=== PATIENT | female | born 1960 | race African-American/Black ===

== ENCOUNTER 2017-05-24 15:09 | Emergency (ER) | payer MEDICAID ==
[2017-05-24 15:17] VITALS: BP 142/92; BMI 46.7
--- NOTE | 2017-05-24 16:17 | DR.GENAD ---
HPI - PCP Primary Care Physician: FLORENCIO - Complaint/Symptoms Chief Complaint:: PT STATES" I GOT BIT BY A BEE ON MONDAY ON MY LT KNEE I MASHED IT BUT ITS REAL SORE. I GOT BLISTERS ON MY LEG TOO THEY JUST CAME UP I DIDNT GET BURNED OR NOTHING" - Source History Provided: Patient - Mode of Arrival Mode of Arrival: Ambulatory - Timing Onset of Chief Complaint: 05/20/17 PMH - PMH Past Medical History: Yes Past Medical History: Asthma, Migraines Past Surgical History: Yes Surgical History: Appendectomy, Hysterectomy, Other - Family History History of Family Medical Conditions: Yes Family Medical History: Diabetes Mellitus, Cancer, Hypertension - Social History Type of Tobacco Use: Cigarettes Does any household member use tobacco: Yes Alcohol Use: Occasionally Do you use any recreational Drugs:: No Lives With: Family Lives Where: Home - infectious screening In the last 2 months have you had wt loss of >10#?: NO Have you had fever, night sweats or hemotysis?: No Have you traveled outside the country in the last 6 months?: No Isolation: Standard ROS - Review of Systems Eyes: No Symptoms Reported ENTM: No Symptoms Reported Respiratoy: No Symptoms Reported Cardiovascular: No Symptoms Reported Gastrointestinal/Abdominal: No Symptoms Reported Genitourinary: No Symptoms Reported Neurological: No Symptoms Reported Musculoskeletal: No Symptoms Reported Integumentary: Rash (insect bite left medial leg below the knee) Hematologic/Lymphatic: No Symptoms Reported Endocrine: No Symptoms Reported Psychiatric: No Symptoms Reported All Other Systems: Reviewed and Negative PE - Vital Signs Vitals: Temperature 97.9 F Pulse Rate 83 Respiratory Rate 18 Blood Pressure 142/92 O2 Sat by Pulse Oximetry 97 - General General Appearance: Alert, In No Apparent Distress - Head Head Exam: Normal Inspection, Atraumatic - ENT ENT Exam: Normal Exam, Normal Oropharynx, Normal External Ear Exam External Ear Exam: Normal External Inspection TM/Canal Exam: Bilateral Normal Nose Exam: Normal Nose Exam Mouth Exam: Normal Inspection Throat Exam: Normal Inspection - Neck Neck Exam: Normal Inspection - Chest Chest Inspection: Normal Inspection - Respiratory Respiratory Exam: Normal Lung Sounds Bilat Respiratory Exam: Bilateral Clear to Auscultation - Cardiovascular Cardiovascular Exam: Regular Rate, Normal Rhythm - Abdominal Exam Abdominal Exam: Normal Inspection Abdominal Tenderness: negative: RUQ, RLQ, LUQ, LLQ, Epigastrium, Suprapubic, Diffuse, Mild, Moderate, Severe, Other - Extremities Extremities Exam: Other (insect bite medial left lower extremity below the knee- -erythematous punctum) - Back Back Exam: Full ROM - Neurologic Neurological Exam: Alert, Oriented X3, CN II-XII Intact - Psychiatric Psychiatric Exam: Normal Affect - Skin Skin Exam: Warm, Dry, Intact - Diagnosis Discharge Problem: Insect bite Qualifiers: Encounter type: initial encounter Qualified Code(s): W57.XXXA - Bitten or stung by nonvenomous insect and other nonvenomous arthropods, initial encounter - Discharge Plan Condition: Stable - Follow ups/Referrals Follow ups/Referrals: Lelo MATIAS [Primary Care Provider] - 3 days - Instructions
== END 2017-05-24 16:24 | disposition home or self-care (01) ==
LOC: ER 15:20
DX: S80.861A Insect bite (nonvenomous), right lower leg, initial encounter (principal); W57.XXXA Bitten or stung by nonvenomous insect and other nonvenomous arthropods, initial encounter
CPT/HCPCS: 99281; 99282

== ENCOUNTER 2017-09-04 14:23 | Emergency (ER) | payer MEDICAID ==
[2017-09-04 14:28] VITALS: BP 147/85; BMI 47.6
[2017-09-04] MEDS ORDERED: SOLU-Medrol 125 MG VIAL IVP ONE (14:40)
[2017-09-04] MEDS ORDERED: DUONEB 0.5 MG/3 MG NEB ONE (14:40)
[2017-09-04] MEDS ORDERED: NS 1000 ML 1,000 ML IV ONE (14:40)
[2017-09-04] MEDS ORDERED: DECADRON JET NEB (RESP USE) NEB ONE ×2 (14:40→15:06)
--- NOTE | 2017-09-04 14:43 | DR.GENAD ---
HPI - PCP Primary Care Physician: FLORENCIO - Complaint/Symptoms Chief Complaint:: GENERALIZED BODY ACHES, CHILLS, HEADACHE, DRY COUGH, WHEEZING , SHORTNESS OF BREATH, N/V X 3 WEEKS. - Source History Provided: Patient - Mode of Arrival Mode of Arrival: Ambulatory - Timing Onset of Chief Complaint: 08/14/17 PMH - PMH Past Medical History: Yes Past Medical History: Asthma, Migraines Past Surgical History: Yes Surgical History: Appendectomy, Hysterectomy, Other - Family History History of Family Medical Conditions: Yes Family Medical History: Diabetes Mellitus, Cancer, Hypertension - Social History Does patient currently use any type of tobacco product: Yes Have you used tobacco products in the last 12 months: Yes Type of Tobacco Use: Cigarettes Does any household member use tobacco: No Alcohol Use: Occasionally Do you use any recreational Drugs:: No Lives With: Alone Lives Where: Home - infectious screening In the last 2 months have you had wt loss of >10#?: NO Have you had fever, night sweats or hemotysis?: No Have you traveled outside the country in the last 6 months?: No Isolation: Standard ROS - Review of Systems Eyes: No Symptoms Reported ENTM: No Symptoms Reported Respiratoy: No Symptoms Reported Cardiovascular: No Symptoms Reported Gastrointestinal/Abdominal: No Symptoms Reported Genitourinary: No Symptoms Reported Neurological: No Symptoms Reported Musculoskeletal: No Symptoms Reported Integumentary: No Symptoms Reported Hematologic/Lymphatic: No Symptoms Reported Endocrine: No Symptoms Reported Psychiatric: No Symptoms Reported All Other Systems: Reviewed and Negative PE - Vital Signs Vitals: Temperature 98.0 F Pulse Rate 80 Respiratory Rate 26 Blood Pressure 147/85 O2 Sat by Pulse Oximetry 97 - General Limitations: No Limitations General Appearance: Alert, Anxious - Head Head Exam: Normal Inspection, Atraumatic - Eyes Eye exam: Normal Appearance, PERRL, EOMI - ENT ENT Exam: Normal Exam External Ear Exam: Normal External Inspection TM/Canal Exam: Bilateral Normal Nose Exam: Normal Nose Exam Mouth Exam: Normal Inspection Throat Exam: Normal Inspection - Neck Neck Exam: Normal Inspection - Chest Chest Inspection: Normal Inspection, Symmetric Chest Wall Rise - Respiratory Respiratory Exam: Normal Lung Sounds Bilat Respiratory Exam: Bilateral Wheezing (inspiratory/expiratory) - Cardiovascular Cardiovascular Exam: Regular Rate, Normal Rhythm - Abdominal Exam Abdominal Exam: Normal Inspection, Normal Bowel Sounds Abdominal Tenderness: negative: RUQ, RLQ, LUQ, LLQ, Epigastrium, Suprapubic, Diffuse, Mild, Moderate, Severe, Other - Extremities Extremities Exam: Normal Inspection, Full ROM - Back Back Exam: Normal Inspection, Full ROM - Neurologic Neurological Exam: Alert, Oriented X3, CN II-XII Intact - Psychiatric Psychiatric Exam: Normal Affect - Skin Skin Exam: Warm, Dry, Intact Course - Reevaluation 1st: Improved - Education/Counseling Education/Counseling: Counseling Educated On: Treatment, Diagnosis, Needs for Follow Up ROR - Labs Reviewed Laboratory Results Reviewed?: Yes (strep and influenza are negative) Laboratory: Influenza Type A (PCR) Negative (NEGATIVE) 09/04/17 14:58 Influenza Type B (PCR) Negative (NEGATIVE) 09/04/17 14:58 Streptococcus Screen Negative (NEGATIVE) 09/04/17 14:58 - XRAY XRAY Interpreted by: Radiologist (Chest:Impression: AP portable examination of chest is obtained at approximately 3:10pm and comparison made to the previous study of 10/23/15. Mild cardiomegaly persists. Lungs and pleural spaces are clear. Osseous structures appear intact. Impression: No change in the appearance of the chest and no evidence of acute disease.) - Diagnosis Discharge Problem: Asthmatic bronchitis , chronic Upper respiratory infection Qualifiers: URI type: unspecified viral URI Qualified Code(s): J06.9 - Acute upper respiratory infection, unspecified; B97.89 - Other viral agents as the cause of diseases classified elsewhere; B97.89 - Other viral agents as the cause of diseases classified elsewhere - Discharge Plan Condition: Stable - Follow ups/Referrals Follow ups/Referrals: Lelo MATIAS [Primary Care Provider] - 3 days - Instructions
[2017-09-04] MEDS ORDERED: NS 1000 ML 1,000 ML ONE (14:47)
[2017-09-04] MEDS ORDERED: SOLU-Medrol 125 MG VIAL ONE (14:47)
[2017-09-04] MEDS ORDERED: DUONEB 0.5 MG/3 MG ONE (15:06)
--- NOTE | 2017-09-04 15:16 | RAD ---
History: Cough Study: Chest AP portable Findings: AP portable examination of chest is obtained at approximately 3:10 p.m. and comparison made to the previous study of 10/23/2015. Mild cardiomegaly persists. Lungs and pleural spaces are clear. Osseous structures appear intact. Impression: No change in the appearance of the chest and no evidence of acute disease. Reported By:
== END 2017-09-04 16:14 | disposition home or self-care (01) ==
LOC: ER 14:32
DX: J44.9 Chronic obstructive pulmonary disease, unspecified (principal); J06.9 Acute upper respiratory infection, unspecified; B97.89 Other viral agents as the cause of diseases classified elsewhere; Z72.0 Tobacco use
CPT/HCPCS: 71010; 87070; 87502; 87880; 94640; 96365; 96374; 99282; 99283; A4222; J2930; J7620

== ENCOUNTER 2017-09-22 09:55 | Emergency (ER) | payer MEDICAID ==
[2017-09-22 09:55] VITALS: BP 147/85
[2017-09-22 10:00] VITALS: BMI 43.0
--- NOTE | 2017-09-22 10:24 | DR.GENAD ---
HPI - PCP Primary Care Physician: FLORENCIO - Complaint/Symptoms Chief Complaint Doctors Comments: Patient admtis to sore on her left lower leg for one month. She is being treated with ointment. She states that she was referred to the wound clinic but has not gotten the appointment yet. She is out of her medication for the leg. Chief Complaint:: "MY RIGHT LOWER LEG HAS BEEN RUNNING PUS AND RED FOR ABOUT 1 MONTH" Self Treatment fo Chief Complaint: PAIN MEDS - Source History Provided: Patient - Mode of Arrival Mode of Arrival: Ambulatory - Timing Onset of Chief Complaint: 08/13/17 PMH - PMH Past Medical History: Yes Past Medical History: Asthma, Migraines Past Surgical History: Yes Surgical History: Appendectomy, Hysterectomy, Other - Family History History of Family Medical Conditions: Yes Family Medical History: Diabetes Mellitus, Cancer, Hypertension - Social History Does patient currently use any type of tobacco product: No Have you used tobacco products in the last 12 months: No Type of Tobacco Use: None Does any household member use tobacco: No Alcohol Use: None Do you use any recreational Drugs:: No Lives With: Family Lives Where: Home - infectious screening In the last 2 months have you had wt loss of >10#?: NO Have you had fever, night sweats or hemotysis?: No Have you traveled outside the country in the last 6 months?: No Isolation: Standard ROS - Review of Systems Constitutional: No Symptoms Reported Eyes: No Symptoms Reported ENTM: No Symptoms Reported Respiratoy: No Symptoms Reported Cardiovascular: No Symptoms Reported Gastrointestinal/Abdominal: No Symptoms Reported Genitourinary: No Symptoms Reported Neurological: No Symptoms Reported Musculoskeletal: No Symptoms Reported Integumentary: Wound (anterio lateral right lower extremity) Hematologic/Lymphatic: No Symptoms Reported Endocrine: No Symptoms Reported Psychiatric: No Symptoms Reported All Other Systems: Reviewed and Negative PE - Vital Signs Vitals: Temperature 98.0 F Pulse Rate [Left Radial] 80 Respiratory Rate 20 Blood Pressure [Left Arm] 147/85 Blood Pressure 147/85 O2 Sat by Pulse Oximetry 98 - General Limitations: No Limitations General Appearance: Alert, In No Apparent Distress - Head Head Exam: Normal Inspection, Atraumatic - Eyes Eye exam: Normal Appearance, PERRL, EOMI - ENT ENT Exam: Normal Exam External Ear Exam: Normal External Inspection TM/Canal Exam: Bilateral Normal Nose Exam: Normal Nose Exam Mouth Exam: Normal Inspection Throat Exam: Normal Inspection - Neck Neck Exam: Normal Inspection - Chest Chest Inspection: Normal Inspection - Respiratory Respiratory Exam: Normal Lung Sounds Bilat Respiratory Exam: Bilateral Clear to Auscultation - Cardiovascular Cardiovascular Exam: Regular Rate, Normal Rhythm - Abdominal Exam Abdominal Exam: Normal Inspection Abdominal Tenderness: negative: RUQ, RLQ, LUQ, LLQ, Epigastrium, Suprapubic, Diffuse, Mild, Moderate, Severe, Other - Extremities Extremities Exam: Other (A 2cm stasis ulcer right anteriolateral right lower extremity, non erythematous) - Back Back Exam: Normal Inspection - Neurologic Neurological Exam: Alert, Oriented X3, CN II-XII Intact - Psychiatric Psychiatric Exam: Normal Affect, Normal Mood - Skin Skin Exam: Warm, Dry, Intact - Diagnosis Discharge Problem: Stasis ulcer Qualifiers: Venous stasis ulcer site: other part of lower leg Varicose vein presence: without varicose veins Laterality: right Non-pressure ulcer stage: unspecified non-pressure ulcer stage Qualified Code(s): I87.2 - Venous insufficiency ( chronic) (peripheral); L97.819 - Non-pressure chronic ulcer of other part of right lower leg with unspecified severity; L97.819 - Non-pressure chronic ulcer of other part of right lower leg with unspecified severity; L97.819 - Non- pressure chronic ulcer of other part of right lower leg with unspecified severity; L97.819 - Non-pressure chronic ulcer of other part of right lower leg with unspecified severity - Discharge Plan Condition: Stable - Follow ups/Referrals Follow ups/Referrals: Lelo MATIAS [Primary Care Provider] - 3 days - Instructions
[2017-09-22] MEDS ORDERED: BACTROBAN OINT TOP ONE (10:35)
[2017-09-22] MEDS ORDERED: NEOSPORIN OINT ONE (10:37)
== END 2017-09-22 10:44 | disposition home or self-care (01) ==
LOC: ER 10:07
DX: I87.2 Venous insufficiency (chronic) (peripheral) (principal); L97.819 Non-pressure chronic ulcer of other part of right lower leg with unspecified severity
CPT/HCPCS: 99282

== ENCOUNTER 2017-10-15 21:39 | Emergency (ER) | payer MEDICAID ==
[2017-10-15 21:48] VITALS: BP 122/61; BMI 49.4
[2017-10-15] MEDS ORDERED: TORADOL 60 MG VIAL IM ONE (21:54)
--- NOTE | 2017-10-15 21:54 | DR.GENAD ---
HPI - PCP Primary Care Physician: chinyere - Complaint/Symptoms Chief Complaint Doctors Comments: Patient fell today stating that she injured chest wall. Chief Complaint:: pt states" i fell face first i'm hurting in my lt upper side under my breast it hurts when i cough" - Source History Provided: Patient - Mode of Arrival Mode of Arrival: Ambulatory - Timing Onset of Chief Complaint: 10/15/17 PMH - PMH Past Medical History: Yes Past Medical History: Asthma, Migraines Past Surgical History: Yes Surgical History: Appendectomy, Hysterectomy, Other - Family History History of Family Medical Conditions: Yes Family Medical History: Diabetes Mellitus, Cancer, Hypertension - Social History Do you use any recreational Drugs:: No - infectious screening In the last 2 months have you had wt loss of >10#?: NO Have you had fever, night sweats or hemotysis?: No Have you traveled outside the country in the last 6 months?: No Isolation: Standard ROS - Review of Systems Eyes: No Symptoms Reported ENTM: No Symptoms Reported Respiratoy: No Symptoms Reported Cardiovascular: No Symptoms Reported Gastrointestinal/Abdominal: No Symptoms Reported Genitourinary: No Symptoms Reported Neurological: No Symptoms Reported Musculoskeletal: No Symptoms Reported Integumentary: No Symptoms Reported Hematologic/Lymphatic: No Symptoms Reported Endocrine: No Symptoms Reported Psychiatric: No Symptoms Reported All Other Systems: Reviewed and Negative PE - Vital Signs Vitals: Temperature 98.2 F Pulse Rate 82 Respiratory Rate 18 Blood Pressure [Left Arm] 147/85 Blood Pressure 122/61 O2 Sat by Pulse Oximetry 99 - General Limitations: No Limitations General Appearance: Alert, In No Apparent Distress - Head Head Exam: Normal Inspection, Atraumatic - Eyes Eye exam: Normal Appearance, PERRL, EOMI - ENT ENT Exam: Normal Exam External Ear Exam: Normal External Inspection TM/Canal Exam: Bilateral Normal Nose Exam: Normal Nose Exam, Sinus Tenderness Mouth Exam: Normal Inspection Throat Exam: Normal Inspection - Neck Neck Exam: Normal Inspection, Full ROM - Chest Chest Inspection: Normal Inspection, Tenderness (chest wall tenderness) - Respiratory Respiratory Exam: Normal Lung Sounds Bilat Respiratory Exam: Bilateral Clear to Auscultation - Cardiovascular Cardiovascular Exam: Regular Rate, Normal Rhythm - Abdominal Exam Abdominal Exam: Normal Inspection, Normal Bowel Sounds Abdominal Tenderness: negative: RUQ, RLQ, LUQ, LLQ, Epigastrium, Suprapubic, Diffuse, Mild, Moderate, Severe, Other - Extremities Extremities Exam: Normal Inspection, Full ROM - Back Back Exam: Normal Inspection - Neurologic Neurological Exam: Alert, Oriented X3, CN II-XII Intact ROR - XRAY XRAY Interpreted by: Radiologist (Chest: The cardiac silhouette is enlarged but unchanged. No obvious focal consolidation, pleural effusion, or pneumothorax. The osseous structures appear intact. Impression: No acute cardiopulmonary or osseous process.) - Diagnosis Discharge Problem: Chest wall contusion Qualifiers: Encounter type: initial encounter Laterality: unspecified laterality Qualified Code(s): S20.219A - Contusion of unspecified front wall of thorax, initial encounter - Discharge Plan Condition: Stable - Follow ups/Referrals Follow ups/Referrals: Lelo MATIAS [Primary Care Provider] - 3 days - Instructions
[2017-10-15] MEDS ORDERED: TORADOL 60 MG VIAL ONE (22:05)
--- NOTE | 2017-10-15 23:20 | RAD ---
HISTORY: Left rib pain status post fall. Study: 7 views of the bilateral ribs. Comparison: Chest x-ray dated September 04, 2017. Findings: The cardiac silhouette is enlarged but unchanged. No obvious focal consolidation, pleural effusion, o r pneumothorax. The osseous structures appear intact. IMPRESSION: No acute cardiopulmonary or osseous process. Reported By:
== END 2017-10-16 00:05 | disposition home or self-care (01) ==
LOC: ER 21:39
DX: S20.219A Contusion of unspecified front wall of thorax, initial encounter (principal); W19.XXXA Unspecified fall, initial encounter; Y92.9 Unspecified place or not applicable
CPT/HCPCS: 71111; 96372; 99282; 99283; J1885

== ENCOUNTER 2017-12-26 12:49 | Emergency (ER) | payer MEDICAID ==
[2017-12-26 12:53] VITALS: BP 152/90; BMI 48.6
[2017-12-26] MEDS ORDERED: TORADOL 60 MG VIAL IM ONE (13:50)
--- NOTE | 2017-12-26 13:50 | DR.GENAD ---
HPI - PCP Primary Care Physician: FLORENCIO - Complaint/Symptoms Chief Complaint Doctors Comments: Patient presents with complaint of knee pain, left ear pain. She has been seen by her primary care physician and has been treated for otitis externa. She has a history of chronic pain. Chief Complaint:: PT. C/O CHRONIC LEFT LEG AND KNEE PAIN WELL A HEADACHE AND LEFT EARACHE. - Source History Provided: Patient - Mode of Arrival Mode of Arrival: Ambulatory - Timing Onset of Chief Complaint: 12/21/17 PMH - PMH Past Medical History: Yes Past Medical History: Asthma, Migraines, Hypertension Past Surgical History: Yes Surgical History: Appendectomy, Hysterectomy, Other - Family History History of Family Medical Conditions: Yes Family Medical History: Diabetes Mellitus, Cancer, Hypertension - Social History Does patient currently use any type of tobacco product: Yes Have you used tobacco products in the last 12 months: Yes Type of Tobacco Use: Cigarettes Does any household member use tobacco: No Alcohol Use: Rarely Do you use any recreational Drugs:: No Lives With: Alone Lives Where: Home - infectious screening In the last 2 months have you had wt loss of >10#?: NO Have you had fever, night sweats or hemotysis?: No Have you traveled outside the country in the last 6 months?: No Isolation: Standard ROS - Review of Systems Constitutional: Diaphoresis Respiratoy: No Symptoms Reported Cardiovascular: No Symptoms Reported Gastrointestinal/Abdominal: No Symptoms Reported Genitourinary: No Symptoms Reported Neurological: No Symptoms Reported Musculoskeletal: No Symptoms Reported Integumentary: No Symptoms Reported Hematologic/Lymphatic: No Symptoms Reported Endocrine: No Symptoms Reported Psychiatric: No Symptoms Reported All Other Systems: Reviewed and Negative PE - Vital Signs Vitals: Temperature 98.9 F Pulse Rate 87 Respiratory Rate 17 Blood Pressure [Left Arm] 147/85 Blood Pressure 152/90 O2 Sat by Pulse Oximetry 98 - General Limitations: No Limitations General Appearance: Alert, In No Apparent Distress - Head Head Exam: Normal Inspection, Atraumatic - Eyes Eye exam: Normal Appearance, PERRL, EOMI - ENT ENT Exam: Normal Exam External Ear Exam: Normal External Inspection TM/Canal Exam: Bilateral Normal Nose Exam: Normal Nose Exam Mouth Exam: Normal Inspection Throat Exam: Normal Inspection - Neck Neck Exam: Normal Inspection - Chest Chest Inspection: Normal Inspection - Respiratory Respiratory Exam: Normal Lung Sounds Bilat Respiratory Exam: Bilateral Clear to Auscultation - Cardiovascular Cardiovascular Exam: Regular Rate, Normal Rhythm - Abdominal Exam Abdominal Exam: Normal Inspection, Normal Bowel Sounds Abdominal Tenderness: negative: RUQ, RLQ, LUQ, LLQ, Epigastrium, Suprapubic, Diffuse, Mild, Moderate, Severe, Other - Extremities Extremities Exam: Normal Inspection, Full ROM - Back Back Exam: Normal Inspection - Neurologic Neurological Exam: Alert, Oriented X3, CN II-XII Intact - Psychiatric Psychiatric Exam: Normal Affect, Normal Mood - Skin Skin Exam: Warm, Dry, Intact - Diagnosis Discharge Problem: Chronic joint pain - Discharge Plan Condition: Stable - Follow ups/Referrals Follow ups/Referrals: Lelo MATIAS [Primary Care Provider] - 3 days - Instructions
[2017-12-26] MEDS ORDERED: TORADOL 60 MG VIAL ONE (13:59)
[2017-12-26] MEDS ORDERED: BACITRACIN ZINC ONE (14:03)
[2017-12-26] MEDS ORDERED: NEOSPORIN OINT ONE (14:03)
== END 2017-12-26 14:14 | disposition home or self-care (01) ==
LOC: ER 13:06
DX: M25.50 Pain in unspecified joint (principal)
CPT/HCPCS: 96372; 99281; 99282; J1885

== ENCOUNTER 2019-12-15 14:19 | Observation (INO) ==
[2019-12-15] MEDS ORDERED: NS 1000 ML 1,000 ML ONE ×3 (15:08→20:50)
[2019-12-15] MEDS ORDERED: NS 1000 ML 1,000 ML IV ONE ×2 (15:14→16:29)
[2019-12-15 15:23] LABS: BASOPHILS % (AUTO) 0.3 % (0.2-1.0); EOSINOPHILS % (AUTO) 0.4 % (0.9-2.9); HEMATOCRIT 34.8 % (36.0-47.0); LYMPHOCYTES % (AUTO) 9.5 % (21.0-51.0); MEAN CORPUSCULAR HEMOGLOBIN 25.9 pg (27.0-34.0); MEAN CORPUSCULAR HGB CONC 31.7 g/dL (33.0-35.0); MEAN CORPUSCULAR VOLUME 81.7 fL (80.0-100.0); MEAN PLATELET VOLUME 7.7 fL (7.4-11.0); MONOCYTES # (AUTO) 1.3 x10^3/uL (0.3-0.8); MONOCYTES % (AUTO) 11.8 % (0.0-13.0); NEUTROPHILS # (AUTO) 8.3 x10^3/uL (2.2-4.8); PLATELET COUNT 93 X10^3/uL (150.0-450.0); RED BLOOD COUNT 4.26 X10^6/uL (3.5-5.4); RED CELL DISTRIBUTION WIDTH 19.2 % (11.6-16.5); WHITE BLOOD COUNT 10.6 X10^3/uL (3.6-10.0)
[2019-12-15 15:28] LABS: ANISOCYTOSIS SLIGHT; HYPOCHROMASIA SLIGHT; PLATELET MORPHOLOGY COMMENT NORMAL (NORMAL)
[2019-12-15 15:31] LABS: ALANINE AMINOTRANSFERASE 35 Units/L (12-78); ALBUMIN 2.5 g/dL (3.4-5.0); ALKALINE PHOSPHATASE 166 Units/L (46-116); ASPARTATE AMINO TRANSFERASE 34 Units/L (15-37); BLOOD UREA NITROGEN 29 mg/dL (7-18); CALCIUM 8.4 mg/dL (8.5-10.1); CHLORIDE 102 mmol/L (98-107); COR CA(FOR HYPOALB) 9.6 mg/dL (8.5-10.1); CREATININE 2.51 mg/dL (0.55-1.02); SODIUM 136 mmol/L (136-145); TOTAL PROTEIN 6.9 g/dL (6.4-8.2); eGFR NON BLACK RACES 21 (>60)
--- NOTE | 2019-12-15 15:37 | DR.EXTPAIN ---
HPI Time seen Time Seen by Provider: 12/15/19 15:35 PCP Primary Care Physician: samuel Complaint/Symptoms Chief Complaint Doctor Comments: RIGHT RIB AND CHEST PAIN TIMES Chief Complaint:: pt stated she lifted a 40lb bag of chicken to put in her freezer and she thinks she pulled a muscle. Nurses notes reviewed Nurses Notes Review: Yes Source History Provided: Patient Mode of arrival Mode of Arrival: Ambulatory Timing Onset of Chief Complaint: 12/15/19 Context History of: Arthritis Associated signs and symptoms Associated Signs and Symptoms: Pain PMH PMH Past Medical History: Yes Past Medical History: Arthritis, Asthma, Depression, Migraines, Headaches and Hypertension Past Surgical History: Yes Surgical History: Appendectomy and Other Family History History of Family Medical Conditions: Yes Family Medical History: Diabetes Mellitus, Heart Failure and Hypertension Social History Does patient currently use any type of tobacco product: No Have you used tobacco products in the last 12 months: No Type of Tobacco Use: None Does any household member use tobacco: No Alcohol Use: None Do you use any recreational Drugs:: No Lives With: Family Lives Where: Home infectious screening In the last 2 months have you had wt loss of >10#?: NO Have you had fever, night sweats or hemotysis?: No Have you traveled outside the country in the last 6 months?: No Isolation: Standard ROS Review of Systems Constitutional: See HPI, Weakness and Fatigue; negative Fever Eyes: No Symptoms Reported and See HPI; negative Blurred Vision, Photophobia and Diplopia ENTM: No Symptoms Reported and See HPI; negative Ear Pain, Nose Discharge, Nose Congestion and Throat Pain Respiratoy: See HPI, Moist Cough and Short of Breath; negative Wheezing Cardiovascular: See HPI, Chest Pain (CHEST WALL PAIN.), Syncope (NEAR SYNCOPE) and Other (HYPOTENSION.); negative Edema and Palpitations Gastrointestinal/Abdominal: See HPI and Abdominal Pain (RIGHT UPPER ABDOMINAL PAIN.); negative Constipation, Diarrhea and Vomiting Genitourinary: No Symptoms Reported and See HPI; negative Dysuria, Frequency and Hematuria Neurological: See HPI, Headache, Weakness and Dizziness Musculoskeletal: No Symptoms Reported, See HPI, Back Pain, Muscle Pain, Chest wall (RT.) and Rib(s) (RT) Integumentary: No Symptoms Reported and See HPI; negative Change in Color, Rash and Juandice Hematologic/Lymphatic: No Symptoms Reported and See HPI; negative Easy Bruising and Swollen Glands Endocrine: See HPI and Decreased Appetite; negative Increased Thirst and Increased Urine Psychiatric: No Symptoms Reported and See HPI All Other Systems: Reviewed and Negative PE Vital Signs Vitals: Temperature 98.7 F Pulse Rate 89 Respiratory Rate 20 Blood Pressure [Left Arm] 98/53 Blood Pressure 88/54 O2 Sat by Pulse Oximetry 99 General Limitations: No Limitations General Appearance: Alert and In No Apparent Distress Head Head Exam: Normal Inspection and Atraumatic Eyes Eye exam: Normal Appearance, PERRL and EOMI; negative Scleral Icterus and Conjunctival Injection ENT ENT Exam: Normal Exam, Normal Oropharynx, Normal External Ear Exam and TM's Normal Bilaterally Neck Neck Exam: Normal Inspection and Trachea Midline; negative Tenderness and Lymphadenopathy Chest Chest Inspection: Normal Inspection and Symmetric Chest Wall Rise; negative Tenderness Respiratory Respiratory Exam: Normal Lung Sounds Bilat; negative Accessory Muscle Use, Chest Wall Tenderness and Respiratory Distress Respiratory Exam: Bilateral: Rhonchi and Lower: Rhonchi Cardiovascular Cardiovascular Exam: Regular Rate, Normal Rhythm, Systolic Murmur and Diastolic Murmur Abdominal Exam Abdominal Exam: Normal Inspection, Normal Bowel Sounds, Soft and Tenderness Abdominal Tenderness: RUQ Extremities Extremities Exam: Normal Inspection and Normal Capillary Refill; negative Tenderness, Edema and Calf Tenderness Back Back Exam: Normal Inspection, Tenderness and (R) CVA Tenderness; negative (L) CVA Tenderness Neurological Neurological Exam: Alert, Oriented X3 and CN II-XII Intact; negative Motor Sensory Deficit Psychiatric Psychiatric Exam: Normal Affect and Normal Mood Skin Skin Exam: Warm, Dry, Intact and Normal Color MDM Differential Diagnosis Differential Diagnosis: Contusion, Sprain and Other (RIGHT RIB PAIN, M USCULOSKELETAL PAIN, CHEST WALL PAIN.) COURSE Treatment Treatment: SEE ORDERS. Education/Counseling Education/Counseling: Patient and Family Educated On: Diagnosis and Needs for Follow Up ROR Labs Reviewed Laboratory Results Reviewed?: Yes Result Diagrams: 12/15/19 15:12 12/15/19 15:12 Laboratory: WBC 10.6 X10^3/uL (3.6-10.0) H 12/15/19 15:12 RBC 4.26 X10^6/uL (3.5-5.4) 12/15/19 15:12 Hgb 11.0 g/dL (12.0-16.0) L 12/15/19 15:12 Hct 34.8 % (36.0-47.0) L 12/15/19 15:12 MCV 81.7 fL (80.0-100.0) 12/15/19 15:12 MCH 25.9 pg (27.0-34.0) L 12/15/19 15:12 MCHC 31.7 g/dL (33.0-35.0) L 12/15/19 15:12 RDW 19.2 % (11.6-16.5) H 12/15/19 15:12 Plt Count 93 X10^3/uL (150.0-450.0) L 12/15/19 15:12 Plt Count Comment Decreased (ADEQUATE) A 12/15/19 15:12 MPV 7.7 fL (7.4-11.0) 12/15/19 15:12 Neut % (Auto) 78.0 % (42.0-75.0) H 12/15/19 15:12 Lymph % (Auto) 9.5 % (21.0-51.0) L 12/15/19 15:12 [place] % (Auto) 11.8 % (0.0-13.0) 12/15/19 15:12 Eos % (Auto) 0.4 % (0.9-2.9) L 12/15/19 15:12 Baso % (Auto) 0.3 % (0.2-1.0) 12/15/19 15:12 Neut # (Auto) 8.3 x10^3/uL (2.2-4.8) H 12/15/19 15:12 Lymph # (Auto) 1.0 X10^3/uL (1.3-2.9) L 12/15/19 15:12 [place] # (Auto) 1.3 x10^3/uL (0.3-0.8) H 12/15/19 15:12 Eos # (Auto) 0.0 x10^3/uL (0.0-0.2) 12/15/19 15:12 Baso # (Auto) 0.0 X10^3/uL (0.0-0.1) 12/15/19 15:12 Absolute Nucleated RBC 0.0 /100WBC 12/15/19 15:12 Plt Morphology Comment Normal (NORMAL) 12/15/19 15:12 RBC Morphology Abnormal (NORMAL) A 12/15/19 15:12 Hypochromasia Slight A 12/15/19 15:12 Anisocytosis Slight A 12/15/19 15:12 Sodium 136 mmol/L (136-145) 12/15/19 15:12 Corrected Sodium TNP 12/15/19 15:12 Potassium 2.9 mmol/L (3.5-5.1) L* 12/15/19 15:12 Chloride 102 mmol/L (98-107) 12/15/19 15:12 Carbon Dioxide 27.0 mmol/L (21-32) 12/15/19 15:12 BUN 29 mg/dL (7-18) H 12/15/19 15:12 Creatinine 2.51 mg/dL (0.55-1.02) H 12/15/19 15:12 Est GFR (MDRD) Af Amer 25 (>60) L 12/15/19 15:12 Est GFR (MDRD) Non-Af 21 (>60) L 12/15/19 15:12 Glucose 105 mg/dL (65-99) H 12/15/19 15:12 Calcium 8.4 mg/dL (8.5-10.1) L 12/15/19 15:12 Corrected Calcium 9.6 mg/dL (8.5-10.1) 12/15/19 15:12 Total Bilirubin 0.90 mg/dL (0.2-1.0) 12/15/19 15:12 AST 34 Units/L (15-37) 12/15/19 15:12 ALT 35 Units/L (12-78) 12/15/19 15:12 Alkaline Phosphatase 166 Units/L (46-116) H 12/15/19 15:12 Creatine Kinase 224 Units/L (26-192) H 12/15/19 15:12 CK-MB (CK-2) 1.5 ng/mL (0-4.0) 12/15/19 15:12 CK/CKMB % Calc 0.7 % (<4) 12/15/19 15:12 Troponin I < 0.02 ng/mL (0-1.5) 12/15/19 15:12 Total Protein 6.9 g/dL (6.4-8.2) 12/15/19 15:12 Albumin 2.5 g/dL (3.4-5.0) L 12/15/19 15:12 Globulin 4.4 g/dL (2.5-4.5) 12/15/19 15:12 Albumin/Globulin Ratio 0.6 Ratio (1.1-2.1) L 12/15/19 15:12 Specimen Type Clean catch urine 12/15/19 16:18 Urine Color Dark yellow (YELLOW) 12/15/19 16:18 Urine Appearance Clear (CLEAR) 12/15/19 16:18 Urine pH 5.0 (5.0 - 8.0) 12/15/19 16:18 Ur Specific [place] 1.015 (1.000-1.030) 12/15/19 16:18 Urine Protein 2+ (NEGATIVE) 12/15/19 16:18 Urine Glucose (UA) Negative (NEGATIVE) 12/15/19 16:18 Urine Ketones 1+ (NEGATIVE) 12/15/19 16:18 Urine Occult Blood 1+ (NEGATIVE) 12/15/19 16:18 Urine Nitrite Negative (NEGATIVE) 12/15/19 16:18 Urine Bilirubin 1+ (NEGATIVE) 12/15/19 16:18 Urine Urobilinogen 3+ (NORMAL) 12/15/19 16:18 Ur Leukocyte Esterase 1+ (NEGATIVE) 12/15/19 16:18 Urine RBC 5-10 /HPF (0-3) A 12/15/19 16:18 Urine WBC 3-5 /HPF (0-5) 12/15/19 16:18 Ur Squamous Epith Cells Rare /HPF (NEGATIVE) 12/15/19 16:18 Urine Bacteria Trace /HPF (NEGATIVE) 12/15/19 16:18 Hyaline Casts Few /LPF (NEGATIVE) 12/15/19 16:18 Urine Mucus Few /HPF (NEGATIVE) 12/15/19 16:18 Ur Culture Indicated? No/not indicated 12/15/19 16:18 Opioid Opioid Risk Tool Age (Stephan box if 16-45): No History of Preadolescent Sexual Abuse: No Total: 0 Total Score Risk Category: Low Risk Copyright: Luis M SERRANO predicting aberrant behaviors Diagnosis Discharge Problem: Acute dehydration, Acute hypotension, Acute hypokalemia, Rib pain on right side, Abdominal pain, acute, right upper quadrant Instructions Forms: Excuse From Work Patient Portal
[2019-12-15 16:05] LABS: CKMB % 0.7 % (<4); CREATINE KINASE 224 Units/L (26-192); CREATINE KINASE MB 1.5 ng/mL (0-4.0); TROPONIN I < 0.02 ng/mL (0-1.5)
[2019-12-15 16:23] LABS: BILIRUBIN,URINE 1+ (NEGATIVE); BLOOD/HEMOGLOBIN,URINE 1+ (NEGATIVE); GLUCOSE, URINE NEGATIVE (NEGATIVE); KETONES,URINE 1+ (NEGATIVE); LEUKOCYTE ESTERASE ,URINE 1+ (NEGATIVE); NITRITES,URINE NEGATIVE (NEGATIVE); PROTEIN,URINE 2+ (NEGATIVE); UROBILINOGEN,URINE 3+ (NORMAL)
[2019-12-15] MEDS ORDERED: K-LYTE EFFERVESCENT ONE (16:24)
[2019-12-15] MEDS: K-LYTE EFFERVESCENT PO SCH (16:29)
[2019-12-15 16:31] LABS: APPEARANCE,URINE CLEAR (CLEAR); COLOR,URINE DARK YELLOW (YELLOW)
[2019-12-15 16:32] LABS: BACTERIA,URINE TRACE /HPF (NEGATIVE); HYALINE CASTS, URINE FEW /LPF (NEGATIVE); MUCUS,URINE FEW /HPF (NEGATIVE); SQUAMOUS EPITHELIAL CELL,UR RARE /HPF (NEGATIVE)
--- NOTE | 2019-12-15 17:44 | RAD ---
HISTORYRIGHT RIB PAINSSTUDYRIB SERIESCOMPARISONJuly 2018Five views of the ribsFINDINGSLow lung volumes are observed with no consolidating pulmonary infiltrates. There is mild elevation of the left diaphragm. The heart appears mildly enlarged for technique. There is no mediastinal widening observedThe sensitivity of the exam is limited by osteopenia. This limits the ability to detect nondisplaced or hairline rib fractures within limitations of this examination, there are no rib contour deformities or acutely displaced rib fractures. Mild degenerative joint disease of the bilateral acromioclavicular joints is observed. Multilevel thoracic spondylosis is evidentIMPRESSIONNo acute radiographic abnormalities of the chestNo rib contour deformities or displaced rib fractures identified, within limitations of the exam.Stable cardiomegalyElectronically signed by: KESHAV CHOU (Dec 15, 2019 17:43:34)
[2019-12-15] MEDS: NS 1000 ML 1,000 ML IV SCH ×2 (20:56→23:45)
[2019-12-15] MEDS ORDERED: NORCO 7.5/325 MG TAB ONE (22:19)
[2019-12-15] MEDS: NORCO 7.5/325 MG TAB PO PRN (22:21)
[2019-12-15 23:05] LABS: CKMB % 0.9 % (<4); CREATINE KINASE 179 Units/L (26-192); CREATINE KINASE MB 1.6 ng/mL (0-4.0); MAGNESIUM 1.9 mg/dL (1.7-2.9); TROPONIN I < 0.02 ng/mL (0-1.5)
[2019-12-16 02:04] VITALS: BMI 43.3
[2019-12-16] MEDS: NS 1000 ML 1,000 ML IV SCH ×4 (03:32→21:50)
[2019-12-16 05:16] LABS: BASOPHILS % (AUTO) 0.4 % (0.2-1.0); EOSINOPHILS # (AUTO) 0.1 x10^3/uL (0.0-0.2); EOSINOPHILS % (AUTO) 1.2 % (0.9-2.9); HEMATOCRIT 29.6 % (36.0-47.0); HEMOGLOBIN 9.3 g/dL (12.0-16.0); LYMPHOCYTES # (AUTO) 1.2 X10^3/uL (1.3-2.9); LYMPHOCYTES % (AUTO) 19.8 % (21.0-51.0); MEAN CORPUSCULAR HEMOGLOBIN 26.1 pg (27.0-34.0); MEAN CORPUSCULAR HGB CONC 31.5 g/dL (33.0-35.0); MEAN CORPUSCULAR VOLUME 82.9 fL (80.0-100.0); MEAN PLATELET VOLUME 8.3 fL (7.4-11.0); MONOCYTES # (AUTO) 0.9 x10^3/uL (0.3-0.8); MONOCYTES % (AUTO) 13.9 % (0.0-13.0); NEUTROPHILS % (AUTO) 64.7 % (42.0-75.0); PLATELET COUNT 101 X10^3/uL (150.0-450.0); RED BLOOD COUNT 3.58 X10^6/uL (3.5-5.4); RED CELL DISTRIBUTION WIDTH 19.7 % (11.6-16.5); WHITE BLOOD COUNT 6.2 X10^3/uL (3.6-10.0)
[2019-12-16 05:31] LABS: ALANINE AMINOTRANSFERASE 26 Units/L (12-78); ALBUMIN 2.1 g/dL (3.4-5.0); ALKALINE PHOSPHATASE 154 Units/L (46-116); ASPARTATE AMINO TRANSFERASE 25 Units/L (15-37); BLOOD UREA NITROGEN 28 mg/dL (7-18); CALCIUM 7.5 mg/dL (8.5-10.1); CARBON DIOXIDE 27.3 mmol/L (21-32); CHLORIDE 106 mmol/L (98-107); COR NA(FOR HYPERGLY) 142 mmol/L (136-145); CREATINE KINASE 141 Units/L (26-192); CREATINE KINASE MB 1.4 ng/mL (0-4.0); CREATININE 1.61 mg/dL (0.55-1.02); SODIUM 141 mmol/L (136-145); TOTAL PROTEIN 5.7 g/dL (6.4-8.2); TROPONIN I < 0.02 ng/mL (0-1.5); eGFR NON BLACK RACES 35 (>60)
[2019-12-16 05:47] LABS: PLATELET MORPHOLOGY COMMENT NORMAL (NORMAL)
[2019-12-16 05:48] LABS: HYPOCHROMASIA SLIGHT
[2019-12-16] MEDS: NORCO 7.5/325 MG TAB PO PRN ×2 (06:20→21:17)
[2019-12-16] MEDS ORDERED: MICRO K EXTEN CAP 10 MEQ PO SCH (09:00)
--- NOTE | 2019-12-16 09:19 | DR.H&P ---
H&P History & Physical for Day of: H&P Date: 12/16/19 Chief Complaint Chief Complaint: Lightheaded, Muscle pain Allergies Allergies Allergy/AdvReac Type Severity Reaction Status Date / Time acetaminophen Allergy Verified 12/15/19 14:34 [From Darvocet-N] iodine Allergy Verified 12/15/19 14:34 propoxyphene Allergy Verified 12/15/19 14:34 [From Darvocet-N] History of Present Illness History of Present Illness: Pt is a 59 yo f that presented to the ED after picking up heavy object and feeling like she "sprained a muscle" in her chest and back. She also c/o feeling lightheaded throughout the day and admitted to not eating and drinking enough. In ED, her initial vitals and labs: BP 88/54, K 2.9, Cr 2.51, WBC 10.6, Hgb 11, Plt 93, UA unremarkable, CXR w/ ribs negative for acute abnormalities. She was found to be dehydrated with give IVF bolus 2L NS. Past Medical History Past Medical History: Arthritis, Asthma, Depression, Migraines, Headaches and Hypertension Past Surgical History Surgical History: Appendectomy, HOSPICE MANAGER Surgery, Hysterectomy, Ortho Surgery and Other Family History Family Medical History: Diabetes Mellitus, Heart Failure and Hypertension Social History Does patient currently use any type of tobacco product: No Have you used tobacco products in the last 12 months: No Type of Tobacco Use: None Does any household member use tobacco: No Alcohol Use: None Drug Use: None Medications Home Medications: acetaminophen [From Darvocet-N] Allergy (Verified 12/15/19 14:34) iodine Allergy (Verified 12/15/19 14:34) propoxyphene [From Darvocet-N] Allergy (Verified 12/15/19 14:34) CONTINUE taking the following medications famotidine 10 mg PO DAILY 12/15/19 [History] furosemide [Lasix] 40 mg PO DAILY 12/15/19 [History] lisinopril 40 mg PO DAILY 12/15/19 [History] potassium chloride 10 meq PO DAILY 12/15/19 [History] Labs Result Diagrams: 12/16/19 04:46 12/16/19 04:46 Labs: Laboratory WBC 6.2 X10^3/uL (3.6-10.0) 12/16/19 04:46 RBC 3.58 X10^6/uL (3.5-5.4) 12/16/19 04:46 Hgb 9.3 g/dL (12.0-16.0) L 12/16/19 04:46 Hct 29.6 % (36.0-47.0) L 12/16/19 04:46 MCV 82.9 fL (80.0-100.0) 12/16/19 04:46 MCH 26.1 pg (27.0-34.0) L 12/16/19 04:46 MCHC 31.5 g/dL (33.0-35.0) L 12/16/19 04:46 RDW 19.7 % (11.6-16.5) H 12/16/19 04:46 Plt Count 101 X10^3/uL (150.0-450.0) L 12/16/19 04:46 Plt Count Comment Decreased (ADEQUATE) A 12/16/19 04:46 MPV 8.3 fL (7.4-11.0) 12/16/19 04:46 Neut % (Auto) 64.7 % (42.0-75.0) 12/16/19 04:46 Lymph % (Auto) 19.8 % (21.0-51.0) L 12/16/19 04:46 [place] % (Auto) 13.9 % (0.0-13.0) H 12/16/19 04:46 Eos % (Auto) 1.2 % (0.9-2.9) 12/16/19 04:46 Baso % (Auto) 0.4 % (0.2-1.0) 12/16/19 04:46 Neut # (Auto) 4.0 x10^3/uL (2.2-4.8) 12/16/19 04:46 Lymph # (Auto) 1.2 X10^3/uL (1.3-2.9) L 12/16/19 04:46 [place] # (Auto) 0.9 x10^3/uL (0.3-0.8) H 12/16/19 04:46 Eos # (Auto) 0.1 x10^3/uL (0.0-0.2) 12/16/19 04:46 Baso # (Auto) 0.0 X10^3/uL (0.0-0.1) 12/16/19 04:46 Absolute Nucleated RBC 0.0 /100WBC 12/16/19 04:46 Total Counted 100 12/16/19 04:46 Neutrophils % (Manual) 68 % (39-76) 12/16/19 04:46 Lymphocytes % (Manual) 23 % (13-43) 12/16/19 04:46 Monocytes % (Manual) 8 % (4-9) 12/16/19 04:46 Eosinophils % (Manual) 1 % (0-6) 12/16/19 04:46 Plt Morphology Comment Normal (NORMAL) 12/16/19 04:46 RBC Morphology Abnormal (NORMAL) A 12/16/19 04:46 Hypochromasia Slight A 12/16/19 04:46 Anisocytosis Slight A 12/15/19 15:12 PT 13.5 SECONDS (11.8-14.3) 12/16/19 04:46 INR Target Range - 12/16/19 04:46 INR 1.07 (0.8-1.3) 12/16/19 04:46 APTT 32.2 SECONDS (22.9-36.5) 12/16/19 04:46 PTT Comment - 12/16/19 04:46 Sodium 141 mmol/L (136-145) 12/16/19 04:46 Corrected Sodium 142 mmol/L (136-145) 12/16/19 04:46 Potassium 3.5 mmol/L (3.5-5.1) 12/16/19 04:46 Chloride 106 mmol/L (98-107) 12/16/19 04:46 Carbon Dioxide 27.3 mmol/L (21-32) 12/16/19 04:46 BUN 28 mg/dL (7-18) H 12/16/19 04:46 Creatinine 1.61 mg/dL (0.55-1.02) H 12/16/19 04:46 Est GFR (MDRD) Af Amer 42 (>60) L 12/16/19 04:46 Est GFR (MDRD) Non-Af 35 (>60) L 12/16/19 04:46 Glucose 146 mg/dL (65-99) H 12/16/19 04:46 Calcium 7.5 mg/dL (8.5-10.1) L 12/16/19 04:46 Corrected Calcium 9.0 mg/dL (8.5-10.1) 12/16/19 04:46 Magnesium 2.0 mg/dL (1.7-2.9) 12/16/19 04:46 Total Bilirubin 0.40 mg/dL (0.2-1.0) 12/16/19 04:46 AST 25 Units/L (15-37) 12/16/19 04:46 ALT 26 Units/L (12-78) 12/16/19 04:46 Alkaline Phosphatase 154 Units/L (46-116) H 12/16/19 04:46 Creatine Kinase 141 Units/L (26-192) 12/16/19 04:46 CK-MB (CK-2) 1.4 ng/mL (0-4.0) 12/16/19 04:46 CK/CKMB % Calc 1.0 % (<4) 12/16/19 04:46 Troponin I < 0.02 ng/mL (0-1.5) 12/16/19 04:46 Total Protein 5.7 g/dL (6.4-8.2) L 12/16/19 04:46 Albumin 2.1 g/dL (3.4-5.0) L 12/16/19 04:46 Globulin 3.6 g/dL (2.5-4.5) 12/16/19 04:46 Albumin/Globulin Ratio 0.6 Ratio (1.1-2.1) L 12/16/19 04:46 Specimen Type Clean catch urine 12/15/19 16:18 Urine Color Dark yellow (YELLOW) 12/15/19 16:18 Urine Appearance Clear (CLEAR) 12/15/19 16:18 Urine pH 5.0 (5.0 - 8.0) 12/15/19 16:18 Ur Specific [place] 1.015 (1.000-1.030) 12/15/19 16:18 Urine Protein 2+ (NEGATIVE) 12/15/19 16:18 Urine Glucose (UA) Negative (NEGATIVE) 12/15/19 16:18 Urine Ketones 1+ (NEGATIVE) 12/15/19 16:18 Urine Occult Blood 1+ (NEGATIVE) 12/15/19 16:18 Urine Nitrite Negative (NEGATIVE) 12/15/19 16:18 Urine Bilirubin 1+ (NEGATIVE) 12/15/19 16:18 Urine Urobilinogen 3+ (NORMAL) 12/15/19 16:18 Ur Leukocyte Esterase 1+ (NEGATIVE) 12/15/19 16:18 Urine RBC 5-10 /HPF (0-3) A 12/15/19 16:18 Urine WBC 3-5 /HPF (0-5) 12/15/19 16:18 Ur Squamous Epith Cells Rare /HPF (NEGATIVE) 12/15/19 16:18 Urine Bacteria Trace /HPF (NEGATIVE) 12/15/19 16:18 Hyaline Casts Few /LPF (NEGATIVE) 12/15/19 16:18 Urine Mucus Few /HPF (NEGATIVE) 12/15/19 16:18 Ur Culture Indicated? No/not indicated 12/15/19 16:18 Review of Systems Constitutional: Weakness; denies Fever and Chills Eyes: No Symptoms Reported ENT: No Symptoms Reported Respiratory: No Symptoms Reported Cardiovascular: Light Headedness; denies Edema Gastrointestinal: No Symptoms Reported Genitourinary: No Symptoms Reported Musculoskeletal: Back Pain Skin: No Symptoms Reported Neurological: No Symptoms Reported Physical Exam Vital Signs: Temperature 98.1 F Pulse Rate [Left Radial] 75 Pulse Rate 89 Respiratory Rate 20 Blood Pressure [Right Arm] 104/60 Blood Pressure [Left Arm] 100/70 Blood Pressure 88/54 O2 Sat by Pulse Oximetry 97 Oriented: Normal Eyes: Normal Ear: Normal Nose: Normal Throat: Normal Respiratory: Clear Throughout Cardiovascular: Normal : Normal Auscultation: Bowel Sounds: Normal Palpation: Normal Tenderness: Normal Skin: Normal Musculoskeletal: Normal Psychiatric: Normal Mood Description: Calm Speech Pattern: Clear Assessment/Plan (1) Acute hypotension: Status: Acute Plan: BP improved, continue IVF, can decrease rate from 250mL/h to 125ml/h. Appears to have still been using home Lasix 40mg daily for edema, holding medications and discussed with patient to discontinue taking. Continue to monitor. (2) Rib pain on right side: Status: Acute Plan: CXR negative (3) Dehydration: Status: Acute Plan: Continue IVF (4) Hypokalemia: Status: Acute Plan: Replete (5) Acute renal failure: Status: Acute Plan: Hold nephrotoxic medication, including home Lasix IVF, continue to monitor Cr:2.51>1.61 Review H&P Reviewed: Yes Patient was examined?: Yes
[2019-12-16] MEDS: K-LYTE EFFERVESCENT PO SCH ×2 (11:49→11:50)
[2019-12-17] MEDS: NS 1000 ML 1,000 ML IV SCH (05:02)
[2019-12-17 06:44] LABS: BLOOD UREA NITROGEN 14 mg/dL (7-18); CHLORIDE 113 mmol/L (98-107); CREATININE 0.83 mg/dL (0.55-1.02); SODIUM 144 mmol/L (136-145); eGFR NON BLACK RACES > 60 (>60)
--- NOTE | 2019-12-17 08:21 | W.DIS.FURT ---
Summary of Discharge Discharge Summary of Date Date of Exam: 12/17/19 Admission Date Date of Admission: 12/16/19 Admission Diagnosis Hospital Course: Pt is a 59 yo f that was admitted for Acute renal failure and dehydration after being symptomatic, feeling lightheaded throughout the day. Her initial vitals and labs: BP 88/54, K 2.9, Cr 2.51, WBC 10.6, Hgb 11, Plt 93, UA unremarkable, CXR w/ ribs negative for acute abnormalities. She received IVF bolus 2L NS and was started on maintenance fluids. Nephrotoxic medications were held, and it was determined that she was taking Lasix everyday for edema. Pt's labs significantly improved on day of discharge, Cr trending down. She was discharged in stable condition, with instructions to follow up with pcp in 1 week. Home medications were resumed with discontinuation of Lasix. Vital Signs: Vital Signs (72 hours) 12/15/19 14:35 12/15/19 15:45 12/15/19 16:00 Temperature 98.7 F Pulse Rate 89 Pulse Rate [Left Radial] Respiratory Rate 16 20 Blood Pressure 88/51 91/59 90/59 Blood Pressure [Left Arm] Blood Pressure [Right Arm] O2 Sat by Pulse Oximetry 99 99 12/15/19 16:30 12/15/19 17:00 12/15/19 18:45 Temperature Pulse Rate Pulse Rate [Left Radial] Respiratory Rate 20 Blood Pressure 110/71 127/80 93/50 Blood Pressure [Left Arm] Blood Pressure [Right Arm] O2 Sat by Pulse Oximetry 12/15/19 19:00 12/15/19 19:30 12/15/19 19:45 Temperature Pulse Rate Pulse Rate [Left Radial] Respiratory Rate Blood Pressure 88/54 Blood Pressure [Left Arm] 98/53 92/54 Blood Pressure [Right Arm] O2 Sat by Pulse Oximetry 12/15/19 20:00 12/15/19 20:15 12/15/19 20:30 Temperature Pulse Rate Pulse Rate [Left Radial] Respiratory Rate Blood Pressure Blood Pressure [Left Arm] 97/56 95/55 90/53 Blood Pressure [Right Arm] O2 Sat by Pulse Oximetry 12/15/19 20:45 12/15/19 21:15 12/15/19 21:30 Temperature Pulse Rate Pulse Rate [Left Radial] Respiratory Rate Blood Pressure Blood Pressure [Left Arm] 73/37 99/59 100/55 Blood Pressure [Right Arm] O2 Sat by Pulse Oximetry 12/15/19 21:45 12/15/19 22:00 12/15/19 22:15 Temperature Pulse Rate Pulse Rate [Left Radial] Respiratory Rate Blood Pressure Blood Pressure [Left Arm] 109/56 109/65 103/65 Blood Pressure [Right Arm] O2 Sat by Pulse Oximetry 12/15/19 22:21 12/15/19 22:30 12/15/19 23:21 Temperature Pulse Rate Pulse Rate [Left Radial] Respiratory Rate 18 18 Blood Pressure Blood Pressure [Left Arm] 100/70 Blood Pressure [Right Arm] O2 Sat by Pulse Oximetry 12/16/19 00:00 12/16/19 04:00 12/16/19 06:20 Temperature 97.5 F L 97.8 F Pulse Rate Pulse Rate [Left Radial] 80 81 Respiratory Rate 20 20 18 Blood Pressure Blood Pressure [Left Arm] Blood Pressure [Right Arm] 106/57 118/61 O2 Sat by Pulse Oximetry 97 98 12/16/19 07:20 12/16/19 08:00 12/16/19 12:00 Temperature 98.1 F 98.1 F Pulse Rate Pulse Rate [Left Radial] 75 73 Respiratory Rate 20 20 20 Blood Pressure Blood Pressure [Left Arm] Blood Pressure [Right Arm] 104/60 96/60 O2 Sat by Pulse Oximetry 97 99 12/16/19 16:00 12/16/19 20:00 12/16/19 21:17 Temperature 97.6 F 97.7 F Pulse Rate Pulse Rate [Left Radial] 89 88 Respiratory Rate 20 22 17 Blood Pressure Blood Pressure [Left Arm] 124/72 Blood Pressure [Right Arm] 108/77 O2 Sat by Pulse Oximetry 97 99 12/16/19 22:17 12/17/19 00:00 12/17/19 04:00 Temperature 97.8 F 98.0 F Pulse Rate Pulse Rate [Left Radial] 85 80 Respiratory Rate 17 20 20 Blood Pressure Blood Pressure [Left Arm] 121/58 113/80 Blood Pressure [Right Arm] O2 Sat by Pulse Oximetry 97 98 Labs: Laboratory Last Values WBC 6.2 X10^3/uL (3.6-10.0) 12/16/19 04:46 RBC 3.58 X10^6/uL (3.5-5.4) 12/16/19 04:46 Hgb 9.3 g/dL (12.0-16.0) L 12/16/19 04:46 Hct 29.6 % (36.0-47.0) L 12/16/19 04:46 MCV 82.9 fL (80.0-100.0) 12/16/19 04:46 MCH 26.1 pg (27.0-34.0) L 12/16/19 04:46 MCHC 31.5 g/dL (33.0-35.0) L 12/16/19 04:46 RDW 19.7 % (11.6-16.5) H 12/16/19 04:46 Plt Count 101 X10^3/uL (150.0-450.0) L 12/16/19 04:46 Plt Count Comment Decreased (ADEQUATE) A 12/16/19 04:46 MPV 8.3 fL (7.4-11.0) 12/16/19 04:46 Neut % (Auto) 64.7 % (42.0-75.0) 12/16/19 04:46 Lymph % (Auto) 19.8 % (21.0-51.0) L 12/16/19 04:46 [place] % (Auto) 13.9 % (0.0-13.0) H 12/16/19 04:46 Eos % (Auto) 1.2 % (0.9-2.9) 12/16/19 04:46 Baso % (Auto) 0.4 % (0.2-1.0) 12/16/19 04:46 Neut # (Auto) 4.0 x10^3/uL (2.2-4.8) 12/16/19 04:46 Lymph # (Auto) 1.2 X10^3/uL (1.3-2.9) L 12/16/19 04:46 [place] # (Auto) 0.9 x10^3/uL (0.3-0.8) H 12/16/19 04:46 Eos # (Auto) 0.1 x10^3/uL (0.0-0.2) 12/16/19 04:46 Baso # (Auto) 0.0 X10^3/uL (0.0-0.1) 12/16/19 04:46 Absolute Nucleated RBC 0.0 /100WBC 12/16/19 04:46 Total Counted 100 12/16/19 04:46 Neutrophils % (Manual) 68 % (39-76) 12/16/19 04:46 Lymphocytes % (Manual) 23 % (13-43) 12/16/19 04:46 Monocytes % (Manual) 8 % (4-9) 12/16/19 04:46 Eosinophils % (Manual) 1 % (0-6) 12/16/19 04:46 Plt Morphology Comment Normal (NORMAL) 12/16/19 04:46 RBC Morphology Abnormal (NORMAL) A 12/16/19 04:46 Hypochromasia Slight A 12/16/19 04:46 Anisocytosis Slight A 12/15/19 15:12 PT 13.5 SECONDS (11.8-14.3) 12/16/19 04:46 INR Target Range - 12/16/19 04:46 INR 1.07 (0.8-1.3) 12/16/19 04:46 APTT 32.2 SECONDS (22.9-36.5) 12/16/19 04:46 PTT Comment - 12/16/19 04:46 Sodium 144 mmol/L (136-145) 12/17/19 05:15 Corrected Sodium TNP 12/17/19 05:15 Potassium 4.4 mmol/L (3.5-5.1) 12/17/19 05:15 Chloride 113 mmol/L (98-107) H 12/17/19 05:15 Carbon Dioxide 25.0 mmol/L (21-32) 12/17/19 05:15 BUN 14 mg/dL (7-18) 12/17/19 05:15 Creatinine 0.83 mg/dL (0.55-1.02) 12/17/19 05:15 Est GFR (MDRD) Af Amer > 60 (>60) 12/17/19 05:15 Est GFR (MDRD) Non-Af > 60 (>60) 12/17/19 05:15 Glucose 97 mg/dL (65-99) 12/17/19 05:15 Calcium 8.0 mg/dL (8.5-10.1) L 12/17/19 05:15 Corrected Calcium 9.0 mg/dL (8.5-10.1) 12/16/19 04:46 Magnesium 2.0 mg/dL (1.7-2.9) 12/16/19 04:46 Total Bilirubin 0.40 mg/dL (0.2-1.0) 12/16/19 04:46 AST 25 Units/L (15-37) 12/16/19 04:46 ALT 26 Units/L (12-78) 12/16/19 04:46 Alkaline Phosphatase 154 Units/L (46-116) H 12/16/19 04:46 Creatine Kinase 141 Units/L (26-192) 12/16/19 04:46 CK-MB (CK-2) 1.4 ng/mL (0-4.0) 12/16/19 04:46 CK/CKMB % Calc 1.0 % (<4) 12/16/19 04:46 Troponin I < 0.02 ng/mL (0-1.5) 12/16/19 04:46 Total Protein 5.7 g/dL (6.4-8.2) L 12/16/19 04:46 Albumin 2.1 g/dL (3.4-5.0) L 12/16/19 04:46 Globulin 3.6 g/dL (2.5-4.5) 12/16/19 04:46 Albumin/Globulin Ratio 0.6 Ratio (1.1-2.1) L 12/16/19 04:46 Specimen Type Clean catch urine 12/15/19 16:18 Urine Color Dark yellow (YELLOW) 12/15/19 16:18 Urine Appearance Clear (CLEAR) 12/15/19 16:18 Urine pH 5.0 (5.0 - 8.0) 12/15/19 16:18 Ur Specific [place] 1.015 (1.000-1.030) 12/15/19 16:18 Urine Protein 2+ (NEGATIVE) 12/15/19 16:18 Urine Glucose (UA) Negative (NEGATIVE) 12/15/19 16:18 Urine Ketones 1+ (NEGATIVE) 12/15/19 16:18 Urine Occult Blood 1+ (NEGATIVE) 12/15/19 16:18 Urine Nitrite Negative (NEGATIVE) 12/15/19 16:18 Urine Bilirubin 1+ (NEGATIVE) 12/15/19 16:18 Urine Urobilinogen 3+ (NORMAL) 12/15/19 16:18 Ur Leukocyte Esterase 1+ (NEGATIVE) 12/15/19 16:18 Urine RBC 5-10 /HPF (0-3) A 12/15/19 16:18 Urine WBC 3-5 /HPF (0-5) 12/15/19 16:18 Ur Squamous Epith Cells Rare /HPF (NEGATIVE) 12/15/19 16:18 Urine Bacteria Trace /HPF (NEGATIVE) 12/15/19 16:18 Hyaline Casts Few /LPF (NEGATIVE) 12/15/19 16:18 Urine Mucus Few /HPF (NEGATIVE) 12/15/19 16:18 Ur Culture Indicated? No/not indicated 12/15/19 16:18 Reason For Visit: DEHYDRATION, HYPOTENSION, HYPOKALEMIA, RT ABDOMEN Discharge Date Discharge Date: 12/17/19 Discharge Diagnosis All Active Problems (Updated 12/16/19 @ 09:24 by Rodolfo Bowers) Acute renal failure (Acute) Hypokalemia (Acute) Dehydration (Acute) Acute hypotension (Acute) Contusion of hand (Active) Headache (Active) Asthmatic bronchitis (Acute) Acute sinusitis (Acute) Bronchitis (Acute) Asthma (Acute) Degenerative joint disease of knee, left (Acute) COPD (chronic obstructive pulmonary disease) (Acute) Knee pain (Acute) First degree burn (Acute) Leg pain, right (Acute) URI (upper respiratory infection) (Acute) Arthritis (Acute) Knee pain (Acute) Arthritis (Acute) DJD (degenerative joint disease) (Acute) Insect bite (Acute) Asthmatic bronchitis , chronic (Acute) Stasis ulcer (Acute) Chest wall contusion (Acute) Chronic joint pain (Acute) Contusion of knee, right (Acute) Neuropathic pain of right lower extremity (Acute) Hypokalemia (Acute) Cellulitis (Acute) Musculoskeletal leg pain (Acute) Periorbital edema (Acute) Edema of left orbit (Acute) Pedal edema (Acute) Back pain (Acute) Knee pain (Acute) Chronic lower back pain (Acute) Trichomonal cystitis (Acute) Insect bite (Acute) Leg pain, left (Acute) Contusion (Acute) Viral syndrome (Acute) Asthma attack (Acute) Influenza A (Acute) Osteoarthritis (Acute) Lumbar back pain (Acute) Acute dehydration (Acute) Acute hypotension (Acute) Acute hypokalemia (Acute) Rib pain on right side (Acute) Abdominal pain, acute, right upper quadrant (Acute) Plan of Treatment: Continue with present treatment and follow up plan. Pt is to keep follow up appointment as instructed and take medications as ordered. Discharge Medications Discharge Medications: acetaminophen [From Darvocet-N] Allergy (Verified 12/15/19 14:34) iodine Allergy (Verified 12/15/19 14:34) propoxyphene [From Darvocet-N] Allergy (Verified 12/15/19 14:34) CONTINUE taking the following medications duloxetine 60 mg PO DAILY 12/16/19 [History] famotidine 40 mg PO DAILY 12/16/19 [History] gabapentin 300 mg PO TID 12/16/19 [History] lisinopril 20 mg PO DAILY 12/16/19 [History] meloxicam 7.5 mg PO DAILY 12/16/19 [History] ranitidine HCl 150 mg PO DAILY 12/16/19 [History] tramadol 50 mg PO BID PRN 12/16/19 [History] Discharge Disposition Discharge Disposition: Home
[2019-12-17 11:51] VITALS: BP 120/79
== END 2019-12-17 10:25 | disposition home or self-care (01) ==
LOC: MED/SURG 14:33 → ER 14:33 → MED/SURG 22:39
PROVIDERS: ADMIT Internal Medicine; ATTEND Internal Medicine
DX: I95.89 Other hypotension; R26.89 Other abnormalities of gait and mobility; R10.11 Right upper quadrant pain; E86.0 Dehydration; R10.84 Generalized abdominal pain; I10 Essential (primary) hypertension; R94.4 Abnormal results of kidney function studies; N17.8 Other acute kidney failure; R74.8 Abnormal levels of other serum enzymes; R07.81 Pleurodynia; E87.6 Hypokalemia
CPT/HCPCS: 36415; 71111; 80048; 80053; 81001; 82550; 82553; 83735; 84484; 85025; 85610; 85730; 93005; 94760; 96360; 96361; 96365; 96367; 97161; 99284; A4222; G0378; J7030; J8499

== ENCOUNTER 2021-02-09 11:20 | Inpatient (IN) ==
[2021-02-09 11:27] VITALS: BMI 38.9
[2021-02-09] MEDS ORDERED: STERILE WATER IRRIGATION IR ONE (11:51)
[2021-02-09] MEDS ORDERED: BETADINE SOLN ONE (11:57)
[2021-02-09] MEDS ORDERED: ZOFRAN INJ 4 MG VIAL ONE (12:00)
[2021-02-09] MEDS ORDERED: MORPHINE SULFATE INJ 4 MG ONE (12:00)
--- NOTE | 2021-02-09 12:06 | DR.EXTPAIN ---
HPI Time seen Time Seen by Provider: 02/09/21 12:05 PCP Primary Care Physician: Robinson HPI Comment HPI Comment: PATIENT COMPLAINS OF PAINFUL ULCERATION OF LEFT LOWER BARR ASSOCIATED WITH FOREIGN BODY, MAGGOTS WHILE CHANGING DRESSING. PATIENT COMPLAINS OF SEVERE PAIN AT SITE OF ULCERATION AND LEFT CALF. PATIENT COMPLAINS OF DRAINAGE FROM ULCERATION. DENIES FEVER, CHILLS. Complaint/Symptoms Chief Complaint Doctor Comments: ULCERATION LEFT LOWER BARR ASSOCIATED WITH PAIN AND MAGGOTS IN WOUND Chief Complaint:: Pt states she has maggots in wound to left leg. She states the re were none when she changed the bandage yesterday but they were there this am when pharmacist changed bandage. COVID-19 Coronavirus risk:travel/contact w/high risk person: No Has patient experienced Coronavirus symptoms: No Nurses notes reviewed Nurses Notes Review: Yes Source History Provided: Patient Mode of arrival Mode of Arrival: Ambulatory Timing Onset of Chief Complaint: 02/09/21 Context History of: None Associated signs and symptoms Associated Signs and Symptoms: Other (DRAINAGE FROM LEFT LEG ULCERATION, CONTAINING MAGGOTS) PMH PMH Past Medical History: Yes Past Medical History: Arthritis, Asthma and Hypertension Past Surgical History: Yes Surgical History: Hysterectomy Family History History of Family Medical Conditions: Yes Family Medical History: Hypertension Social History Does patient currently use any type of tobacco product: Yes Have you used tobacco products in the last 12 months: Yes Type of Tobacco Use: Cigarettes Does any household member use tobacco: No Alcohol Use: Occasionally Do you use any recreational Drugs:: No Lives With: Family Lives Where: Home Travel Risk Coronavirus risk:travel/contact w/high risk person: No Has patient experienced Coronavirus symptoms: No Infectious screening In the last 2 months have you had wt loss of >10#?: NO Have you had fever, night sweats or hemotysis?: No Have you traveled outside the country in the last 6 months?: No Isolation: Standard ROS Review of Systems Constitutional: See HPI Eyes: No Symptoms Reported ENTM: No Symptoms Reported Respiratoy: No Symptoms Reported Cardiovascular: No Symptoms Reported Gastrointestinal/Abdominal: No Symptoms Reported Genitourinary: No Symptoms Reported Neurological: No Symptoms Reported Musculoskeletal: See HPI and Muscle Pain (AT SITE OF ULCERATION, CONTAINING MAGGOTS) Integumentary: No Symptoms Reported Hematologic/Lymphatic: No Symptoms Reported Endocrine: No Symptoms Reported Psychiatric: No Symptoms Reported All Other Systems: Reviewed and Negative PE Vital Signs Vitals: Temperature 98.9 F Pulse Rate 108 Respiratory Rate 20 Blood Pressure [Right Arm] 123/68 Blood Pressure [Left Arm] 124/78 Blood Pressure 187/93 O2 Sat by Pulse Oximetry 98 General Limitations: No Limitations General Appearance: Alert and In No Apparent Distress Head Head Exam: Normal Inspection Eyes Eye exam: Normal Appearance ENT ENT Exam: Normal Exam Neck Neck Exam: Normal Inspection Chest Chest Inspection: Normal Inspection and Symmetric Chest Wall Rise Respiratory Respiratory Exam: Normal Lung Sounds Bilat Respiratory Exam: Bilateral: Clear to Auscultation Cardiovascular Cardiovascular Exam: Regular Rate and Normal Rhythm Abdominal Exam Abdominal Exam: Normal Inspection, Normal Bowel Sounds and Soft Extremities Extremities Exam: Normal Inspection Lower Extremities Lower Leg Exam: Normal Inspection (LEFT PEDIS PULSE 2+) and Tenderness (THERE IS A DECUBITUS 5CM X 5CM DISTAL 3RD LEFT BARR MEDIAL ASPECT SUPERIOR TO MEDIAL MALLEOLUS, SEROSANGUINOUS DRAINAGE, WITH MAGGOTS, SURROUNDING ERYTHEMA, MINIMAL WARMTH, MODERATE LEFT CALF TENDERNESS) Back Back Exam: Normal Inspection Neurological Neurological Exam: Alert, Oriented X3 and CN II-XII Intact Psychiatric Psychiatric Exam: Normal Affect and Normal Mood Skin Skin Exam: Warm, Dry, Intact and Normal Color MDM Differential Diagnosis Differential Diagnosis: Other (LEFT DECUBITUS ULCER WITH CELLULITIS, MAGGOTS IN WOUND, DVT LEFT LOWER EXTREMITY) COURSE Treatment Treatment: AFTER WOUND CULTURES AND BLOOD CULTURES ADMINISTERED VANCOMYCIN 1GM IVPB, ZOFRAN 4MG, MORPHINE 4MG IV Reevaluation 1st: Improved Consultation Call Returned: 15:00 Consultation Comments: DISCUSSED WITH DR POOLE AT 1500 FOR OBSERVATION WITH SURGICAL CONSULTATION ROR Labs Reviewed Result Diagrams: 02/09/21 12:05 02/09/21 12:05 Laboratory: WBC 9.0 X10^3/uL (3.6-10.0) 02/09/21 12:05 RBC 4.26 X10^6/uL (3.5-5.4) 02/09/21 12:05 Hgb 11.3 g/dL (12.0-16.0) L 02/09/21 12:05 Hct 35.6 % (36.0-47.0) L 02/09/21 12:05 MCV 83.5 fL (80.0-100.0) 02/09/21 12:05 MCH 26.4 pg (27.0-34.0) L 02/09/21 12:05 MCHC 31.7 g/dL (33.0-35.0) L 02/09/21 12:05 RDW 17.2 % (11.6-16.5) H 02/09/21 12:05 Plt Count 318 X10^3/uL (150.0-450.0) 02/09/21 12:05 MPV 7.9 fL (7.4-11.0) 02/09/21 12:05 Neut % (Auto) 84.4 % (42.0-75.0) H 02/09/21 12:05 Lymph % (Auto) 7.3 % (21.0-51.0) L 02/09/21 12:05 [place] % (Auto) 7.7 % (0.0-13.0) 02/09/21 12:05 Eos % (Auto) 0.3 % (0.9-2.9) L 02/09/21 12:05 Baso % (Auto) 0.3 % (0.2-1.0) 02/09/21 12:05 Neut # (Auto) 7.6 x10^3/uL (2.2-4.8) H 02/09/21 12:05 Lymph # (Auto) 0.7 X10^3/uL (1.3-2.9) L 02/09/21 12:05 [place] # (Auto) 0.7 x10^3/uL (0.3-0.8) 02/09/21 12:05 Eos # (Auto) 0.0 x10^3/uL (0.0-0.2) 02/09/21 12:05 Baso # (Auto) 0.0 X10^3/uL (0.0-0.1) 02/09/21 12:05 Absolute Nucleated RBC 0.0 /100WBC 02/09/21 12:05 Sodium 140 mmol/L (136-145) 02/09/21 12:05 Corrected Sodium TNP 02/09/21 12:05 Potassium 3.7 mmol/L (3.5-5.1) 02/09/21 12:05 Chloride 103 mmol/L (98-107) 02/09/21 12:05 Carbon Dioxide 24.7 mmol/L (21-32) 02/09/21 12:05 BUN 11 mg/dL (7-18) 02/09/21 12:05 Creatinine 0.90 mg/dL (0.55-1.02) 02/09/21 12:05 Est GFR (MDRD) Af Amer > 60 (>60) 02/09/21 12:05 Est GFR (MDRD) Non-Af > 60 (>60) 02/09/21 12:05 Glucose 86 mg/dL (65-99) 02/09/21 12:05 Calcium 8.9 mg/dL (8.5-10.1) 02/09/21 12:05 Corrected Calcium 9.5 mg/dL (8.5-10.1) 02/09/21 12:05 Total Bilirubin 0.90 mg/dL (0.2-1.0) 02/09/21 12:05 AST 12 Units/L (15-37) L 02/09/21 12:05 ALT 18 Units/L (12-78) 02/09/21 12:05 Alkaline Phosphatase 108 Units/L (46-116) 02/09/21 12:05 Total Protein 7.7 g/dL (6.4-8.2) 02/09/21 12:05 Albumin 3.2 g/dL (3.4-5.0) L 02/09/21 12:05 Globulin 4.5 g/dL (2.5-4.5) 02/09/21 12:05 Albumin/Globulin Ratio 0.7 Ratio (1.1-2.1) L 02/09/21 12:05 XRAY XRAY Interpreted by: Radiologist (VENOUS DOPPLER LEFT LOWER EXTREMITY C/W NO EVIDENCE OF DVT) X-ray Results: XRAY OF LEFT LOWER EXTREMITY, NOTED WITH WOUND DISTAL POSTERIOR BARR NO EVIDENCE OF OSTEOMYELITIS EKG [place]: Normal Rhythm: NSR Block: None Hypertrophy: None ST: Normal Opioid Opioid Risk Tool Age (Stephan box if 16-45): No History of Preadolescent Sexual Abuse: No Total: 0 Total Score Risk Category: Low Risk Copyright: Asencio predicting aberrant behaviors Diagnosis Discharge Problem: Decubitus ulcer of left leg, Cellulitis of left lower extremity
[2021-02-09] MEDS ORDERED: MORPHINE SULFATE INJ 4 MG IVP ONE (12:21)
[2021-02-09] MEDS ORDERED: ZOFRAN INJ 4 MG VIAL IVP ONE (12:22)
[2021-02-09 12:44] LABS: BASOPHILS % (AUTO) 0.3 % (0.2-1.0); EOSINOPHILS % (AUTO) 0.3 % (0.9-2.9); HEMATOCRIT 35.6 % (36.0-47.0); HEMOGLOBIN 11.3 g/dL (12.0-16.0); LYMPHOCYTES # (AUTO) 0.7 X10^3/uL (1.3-2.9); LYMPHOCYTES % (AUTO) 7.3 % (21.0-51.0); MEAN CORPUSCULAR HEMOGLOBIN 26.4 pg (27.0-34.0); MEAN CORPUSCULAR HGB CONC 31.7 g/dL (33.0-35.0); MEAN CORPUSCULAR VOLUME 83.5 fL (80.0-100.0); MEAN PLATELET VOLUME 7.9 fL (7.4-11.0); MONOCYTES # (AUTO) 0.7 x10^3/uL (0.3-0.8); MONOCYTES % (AUTO) 7.7 % (0.0-13.0); NEUTROPHILS # (AUTO) 7.6 x10^3/uL (2.2-4.8); NEUTROPHILS % (AUTO) 84.4 % (42.0-75.0); PLATELET COUNT 318 X10^3/uL (150.0-450.0); RED BLOOD COUNT 4.26 X10^6/uL (3.5-5.4); RED CELL DISTRIBUTION WIDTH 17.2 % (11.6-16.5)
[2021-02-09 13:20] LABS: ALANINE AMINOTRANSFERASE 18 Units/L (12-78); ALBUMIN 3.2 g/dL (3.4-5.0); ALKALINE PHOSPHATASE 108 Units/L (46-116); ASPARTATE AMINO TRANSFERASE 12 Units/L (15-37); BLOOD UREA NITROGEN 11 mg/dL (7-18); CALCIUM 8.9 mg/dL (8.5-10.1); CARBON DIOXIDE 24.7 mmol/L (21-32); CHLORIDE 103 mmol/L (98-107); COR CA(FOR HYPOALB) 9.5 mg/dL (8.5-10.1); SODIUM 140 mmol/L (136-145); TOTAL PROTEIN 7.7 g/dL (6.4-8.2); eGFR NON BLACK RACES > 60 (>60)
--- NOTE | 2021-02-09 14:17 | RAD ---
HISTORYPt states she has maggots in wound to left leg.STUDYLOWER LEG, TIB/FIB LEFTCOMPARISONNoneTECHNIQUEFour views of the left tibia and fibula.FINDINGSThere is a wound at the medial posterior distal leg. No radiopaque foreign body. Plantar and dorsal calcaneal enthesopathy. Moderate midfoot degenerative change. No acute fracture, malalignment, or aggressive osseous lesion in the tibia or fibula. At least moderate knee osteoarthrosis.IMPRESSIONWound at the distal leg without radiopaque foreign body. No radiographic evidence of osteomyelitis.Electronically signed by: Ronny Coello (Feb 09, 2021 14:15:13)
--- NOTE | 2021-02-09 14:38 | VAS ---
Ultrasound left lower extremity venous DopplerIndication: Left lower extremity pain.TECHNIQUEDynamic grayscale, color and spectral Doppler imaging through the left lower extremity veins with compression as well as spectral analysis.FINDINGSThe left common femoral vein, superficial femoral vein throughout its length and popliteal vein are patent and compressible with normal respiratory phasicityIMPRESSIONNo left lower extremity deep vein thrombosisElectronically signed by: KAYY LARSON (Feb 09, 2021 14:36:33)
[2021-02-09] MEDS: MORPHINE SULFATE INJ 2 MG INJ IVP PRN ×2 (18:02→22:09)
[2021-02-09] MEDS: ZOFRAN INJ 4 MG VIAL IVP PRN (18:02)
[2021-02-09] MEDS: NS 1000 ML 1,000 ML IV SCH (18:03)
[2021-02-10] MEDS: MORPHINE SULFATE INJ 2 MG INJ IVP PRN ×5 (03:15→20:31)
[2021-02-10] MEDS: NS 1000 ML 1,000 ML IV SCH ×4 (03:20→21:16)
[2021-02-10] MEDS: ZOFRAN INJ 4 MG VIAL IVP PRN ×2 (03:25→07:59)
[2021-02-10] MEDS ORDERED: BETADINE SOLN ONE (07:58)
[2021-02-10] MEDS ORDERED: XYLOCAINE 1 % (PLAIN) ONE (07:58)
--- NOTE | 2021-02-10 08:04 | DR.H&P ---
H&P History & Physical for Day of: H&P Date: 02/10/21 Chief Complaint Chief Complaint: Left leg pain Allergies Allergies Allergy/AdvReac Type Severity Reaction Status Date / Time acetaminophen Allergy Verified 02/09/21 15:42 [From Darvocet-N] iodine Allergy Verified 02/09/21 15:42 propoxyphene Allergy Verified 02/09/21 15:42 [From Darvocet-N] History of Present Illness History of Present Illness: Pt is a 60 year old female past medical history of hypertension, asthma, arthritis, presenting to the ED after having persistent left lower leg pain. It was noted patient had ulceration of left lower gonzáles and maggots while changing dressing for wound. Reports also some purulent discharge from wound site. Denies fevers, chills. Labs/imaging: Wbc 9, Hgb 11.3, Plt 318, Na 140, K 3.7, Creatinine 0.90, Glucose 86, AST 12, ALT 18, ALKP 108, CRP 5.2, COVID-19 negative, XR Tib/fib: Wound at the distal leg without radiopaque foreign body. No radiographic evidence of osteomyelitis. U/S: no left lower extremity DVT. Wound and Blood cultures pending. Pt was started on IVF, kept NPO, pain control with IV morphine prn, Antibiotics: IV Vancomycin. Will consult general surgery for evaluation and possible debridement. Continue to monitor and follow up labs/imaging. Past Medical History Past Medical History: Arthritis, Asthma and Hypertension Past Surgical History Surgical History: Appendectomy, Hysterectomy and Other Family History Family Medical History: Hypertension Social History Does patient currently use any type of tobacco product: Yes Have you used tobacco products in the last 12 months: Yes Type of Tobacco Use: Cigarettes How many years tobacco product used: 14 Does any household member use tobacco: Yes Alcohol Use: None Drug Use: None Medications Home Medications: acetaminophen [From Darvocet-N] Allergy (Verified 02/09/21 15:42) iodine Allergy (Verified 02/09/21 15:42) propoxyphene [From Darvocet-N] Allergy (Verified 02/09/21 15:42) CONTINUE taking the following medications albuterol sulfate [ProAir HFA] 2 puff INHALATION Q4-6H PRN 02/09/21 [History] cetirizine [Zyrtec] 10 mg PO ONCE 02/09/21 [History] cyclobenzaprine [Flexeril] 5 mg PO BID 02/09/21 [History] fluticasone propionate [Flonase Allergy Relief] 1 spray INTRANASAL BID 02/09/21 [History] furosemide [Lasix] 40 mg PO QAM 02/09/21 [History] gabapentin 600 mg PO TID PRN 02/09/21 [History] pantoprazole [Protonix] 40 mg PO ONCE 02/09/21 [History] polyethylene glycol 3350 [GlycoLax] 17 g PO DAILY 02/09/21 [History] potassium chloride [K-Dur] 10 meq PO DAILY 02/09/21 [History] Labs Result Diagrams: 02/09/21 12:05 02/09/21 12:05 Labs: 02/09/21 12:28 Leg - Left - Preliminary Laboratory WBC 9.0 X10^3/uL (3.6-10.0) 02/09/21 12:05 RBC 4.26 X10^6/uL (3.5-5.4) 02/09/21 12:05 Hgb 11.3 g/dL (12.0-16.0) L 02/09/21 12:05 Hct 35.6 % (36.0-47.0) L 02/09/21 12:05 MCV 83.5 fL (80.0-100.0) 02/09/21 12:05 MCH 26.4 pg (27.0-34.0) L 02/09/21 12:05 MCHC 31.7 g/dL (33.0-35.0) L 02/09/21 12:05 RDW 17.2 % (11.6-16.5) H 02/09/21 12:05 Plt Count 318 X10^3/uL (150.0-450.0) 02/09/21 12:05 MPV 7.9 fL (7.4-11.0) 02/09/21 12:05 Neut % (Auto) 84.4 % (42.0-75.0) H 02/09/21 12:05 Lymph % (Auto) 7.3 % (21.0-51.0) L 02/09/21 12:05 [place] % (Auto) 7.7 % (0.0-13.0) 02/09/21 12:05 Eos % (Auto) 0.3 % (0.9-2.9) L 02/09/21 12:05 Baso % (Auto) 0.3 % (0.2-1.0) 02/09/21 12:05 Neut # (Auto) 7.6 x10^3/uL (2.2-4.8) H 02/09/21 12:05 Lymph # (Auto) 0.7 X10^3/uL (1.3-2.9) L 02/09/21 12:05 [place] # (Auto) 0.7 x10^3/uL (0.3-0.8) 02/09/21 12:05 Eos # (Auto) 0.0 x10^3/uL (0.0-0.2) 02/09/21 12:05 Baso # (Auto) 0.0 X10^3/uL (0.0-0.1) 02/09/21 12:05 Absolute Nucleated RBC 0.0 /100WBC 02/09/21 12:05 Sodium 140 mmol/L (136-145) 02/09/21 12:05 Corrected Sodium TNP 02/09/21 12:05 Potassium 3.7 mmol/L (3.5-5.1) 02/09/21 12:05 Chloride 103 mmol/L (98-107) 02/09/21 12:05 Carbon Dioxide 24.7 mmol/L (21-32) 02/09/21 12:05 BUN 11 mg/dL (7-18) 02/09/21 12:05 Creatinine 0.90 mg/dL (0.55-1.02) 02/09/21 12:05 Est GFR (MDRD) Af Amer > 60 (>60) 02/09/21 12:05 Est GFR (MDRD) Non-Af > 60 (>60) 02/09/21 12:05 Glucose 86 mg/dL (65-99) 02/09/21 12:05 Calcium 8.9 mg/dL (8.5-10.1) 02/09/21 12:05 Corrected Calcium 9.5 mg/dL (8.5-10.1) 02/09/21 12:05 Total Bilirubin 0.90 mg/dL (0.2-1.0) 02/09/21 12:05 AST 12 Units/L (15-37) L 02/09/21 12:05 ALT 18 Units/L (12-78) 02/09/21 12:05 Alkaline Phosphatase 108 Units/L (46-116) 02/09/21 12:05 Total Protein 7.7 g/dL (6.4-8.2) 02/09/21 12:05 Albumin 3.2 g/dL (3.4-5.0) L 02/09/21 12:05 Globulin 4.5 g/dL (2.5-4.5) 02/09/21 12:05 Albumin/Globulin Ratio 0.7 Ratio (1.1-2.1) L 02/09/21 12:05 SARS CoV-2 RNA Rapid JADIEL Negative (NEGATIVE) 02/09/21 15:17 Review of Systems Constitutional: No Symptoms Reported Eyes: No Symptoms Reported ENT: No Symptoms Reported Respiratory: No Symptoms Reported Cardiovascular: No Symptoms Reported Gastrointestinal: No Symptoms Reported Genitourinary: No Symptoms Reported Musculoskeletal: Leg Pain (Left lower leg wound/ulceration) Skin: Wound (LLE) Neurological: No Symptoms Reported Physical Exam Vital Signs: Temperature 98.4 F Pulse Rate [Left] 90 Pulse Rate 108 Respiratory Rate 18 Blood Pressure [Right Arm] 123/68 Blood Pressure [Left Arm] 129/74 Blood Pressure 187/93 O2 Sat by Pulse Oximetry 97 Oriented: Normal Eyes: Normal Ear: Normal Nose: Normal Throat: Normal Respiratory: Clear Throughout Cardiovascular: Normal : Normal Auscultation: Bowel Sounds: Normal Palpation: Normal Tenderness: Normal Skin: Wound (LLE) Musculoskeletal: Normal Psychiatric: Normal Mood Description: Calm and Appropriate Affect: Normal Speech Pattern: Clear and Appropriate Assessment/Plan (1) Decubitus ulcer of left leg: Status: Acute Plan: IV vancomycin, NPO, Pain control Blood and wound cultures pending consult general surgery (2) Cellulitis of left lower extremity: Status: Acute Review H&P Reviewed: Yes Patient was examined?: Yes
[2021-02-10] MEDS ORDERED: ZESTRIL TAB 20 MG ONE (08:23)
[2021-02-10] MEDS ORDERED: ANCEF 1 GRAM IV PREMIX* 2 G/100 ML BAG IV ONE (08:45)
[2021-02-10] MEDS ORDERED: XYLOCAINE 1% and EPINEPHRINE 1:100,000 ONE (08:46)
[2021-02-10] MEDS ORDERED: POLYMYXIN B SULFATE ONE (08:49)
[2021-02-10] MEDS ORDERED: ZOFRAN INJ 4 MG VIAL IVP PRN (08:53)
[2021-02-10] MEDS ORDERED: VERSED ONE (09:01)
[2021-02-10] MEDS ORDERED: DIPRIVAN VIAL ONE (09:01)
[2021-02-10] MEDS ORDERED: XYLOCAINE 2 % (PLAIN) ONE (09:01)
[2021-02-10] MEDS ORDERED: MORPHINE SULFATE INJ 2 MG INJ ONE (09:39)
[2021-02-10] MEDS: ZESTRIL TAB 20 MG PO SCH (10:15)
[2021-02-10] MEDS: ZOSYN VIAL 3.375 GRAMS 3.375 G in NS 100 ML IV + SPIKE MINIBAG* 100 ML IV SCH ×3 (10:40→21:00)
[2021-02-10] MEDS ORDERED: BENADRYL INJ 50 MG VIAL IVP PRN (12:44)
[2021-02-11] MEDS: MORPHINE SULFATE INJ 2 MG INJ IVP PRN ×5 (02:02→20:52)
[2021-02-11] MEDS: ZOSYN VIAL 3.375 GRAMS 3.375 G in NS 100 ML IV + SPIKE MINIBAG* 100 ML IV SCH ×3 (05:02→22:35)
[2021-02-11] MEDS: NS 1000 ML 1,000 ML IV SCH ×3 (05:02→20:45)
[2021-02-11 06:13] LABS: ALANINE AMINOTRANSFERASE 11 Units/L (12-78); ALBUMIN 2.1 g/dL (3.4-5.0); ALKALINE PHOSPHATASE 76 Units/L (46-116); ASPARTATE AMINO TRANSFERASE 7 Units/L (15-37); BLOOD UREA NITROGEN 10 mg/dL (7-18); CALCIUM 7.8 mg/dL (8.5-10.1); CARBON DIOXIDE 25.1 mmol/L (21-32); CHLORIDE 107 mmol/L (98-107); COR CA(FOR HYPOALB) 9.3 mg/dL (8.5-10.1); CREATININE 0.89 mg/dL (0.55-1.02); SODIUM 139 mmol/L (136-145); TOTAL PROTEIN 5.3 g/dL (6.4-8.2); eGFR NON BLACK RACES > 60 (>60)
[2021-02-11 06:14] LABS: BASOPHILS % (AUTO) 0.6 % (0.2-1.0); EOSINOPHILS # (AUTO) 0.1 x10^3/uL (0.0-0.2); EOSINOPHILS % (AUTO) 2.2 % (0.9-2.9); HEMATOCRIT 28.2 % (36.0-47.0); LYMPHOCYTES # (AUTO) 0.9 X10^3/uL (1.3-2.9); LYMPHOCYTES % (AUTO) 18.9 % (21.0-51.0); MEAN CORPUSCULAR HEMOGLOBIN 26.6 pg (27.0-34.0); MEAN CORPUSCULAR HGB CONC 31.8 g/dL (33.0-35.0); MEAN CORPUSCULAR VOLUME 83.6 fL (80.0-100.0); MEAN PLATELET VOLUME 7.9 fL (7.4-11.0); MONOCYTES # (AUTO) 0.7 x10^3/uL (0.3-0.8); MONOCYTES % (AUTO) 12.9 % (0.0-13.0); NEUTROPHILS # (AUTO) 3.3 x10^3/uL (2.2-4.8); NEUTROPHILS % (AUTO) 65.4 % (42.0-75.0); PLATELET COUNT 235 X10^3/uL (150.0-450.0); RED BLOOD COUNT 3.37 X10^6/uL (3.5-5.4); RED CELL DISTRIBUTION WIDTH 17.5 % (11.6-16.5)
[2021-02-11] MEDS ORDERED: ZESTRIL TAB 20 MG ONE (09:16)
[2021-02-11] MEDS: ZESTRIL TAB 20 MG PO SCH (09:32)
--- NOTE | 2021-02-11 10:23 | DR.PROGNOT ---
Hospital Progress Notes - Progress Note for Day of: Progress Note Date: 02/11/21 - Chief Complaint Chief Complaint: moderate pain Lt leg . dressing was changed and repacked . good granulating wound . no necrosis or abscess . - Past Medical Family Social History Past Med/Fam/Surg Hx: No changes since H&P Allergies: Allergies acetaminophen [From Darvocet-N] Allergy (Verified 02/09/21 15:42) iodine Allergy (Verified 02/09/21 15:42) propoxyphene [From Darvocet-N] Allergy (Verified 02/09/21 15:42) - Vital Signs Vital Signs: Temperature 98.2 F Pulse Rate [Left] 88 Pulse Rate 108 Respiratory Rate 20 Blood Pressure [Right Arm] 123/68 Blood Pressure [Left Arm] 121/76 Blood Pressure 187/93 O2 Sat by Pulse Oximetry 95 - Physical Exam Oriented: Normal Eyes: Normal Ear: Normal Nose: Normal Throat: Normal Cardiovascular: Normal : Normal GI:Auscultation: Normal GI:Palpation: Normal GI: Tenderness: Normal Skin: Wound (5 x 5 cm open wound . mils cellulitis around the edges and skin .) Musculoskeletal: Normal Psychiatric: Normal Mood Description: Calm, Appropriate Affect: Normal Speech Pattern: Clear, Appropriate - Laboratory and Diagnostics Result Diagrams: 02/11/21 04:43 02/11/21 04:43 Labs: 02/10/21 09:20 Leg - Left Gram Stain - Final 02/10/21 09:20 Leg - Left Wound Culture - Preliminary 02/09/21 12:28 Leg - Left - Preliminary 02/09/21 12:05 Leg - Left Wound Culture - Final Pseudomonas Aeruginosa Proteus Mirabilis Laboratory WBC 5.0 X10^3/uL (3.6-10.0) 02/11/21 04:43 RBC 3.37 X10^6/uL (3.5-5.4) L 02/11/21 04:43 Hgb 9.0 g/dL (12.0-16.0) L D 02/11/21 04:43 Hct 28.2 % (36.0-47.0) L 02/11/21 04:43 MCV 83.6 fL (80.0-100.0) 02/11/21 04:43 MCH 26.6 pg (27.0-34.0) L 02/11/21 04:43 MCHC 31.8 g/dL (33.0-35.0) L 02/11/21 04:43 RDW 17.5 % (11.6-16.5) H 02/11/21 04:43 Plt Count 235 X10^3/uL (150.0-450.0) 02/11/21 04:43 MPV 7.9 fL (7.4-11.0) 02/11/21 04:43 Neut % (Auto) 65.4 % (42.0-75.0) 02/11/21 04:43 Lymph % (Auto) 18.9 % (21.0-51.0) L 02/11/21 04:43 [place] % (Auto) 12.9 % (0.0-13.0) 02/11/21 04:43 Eos % (Auto) 2.2 % (0.9-2.9) 02/11/21 04:43 Baso % (Auto) 0.6 % (0.2-1.0) 02/11/21 04:43 Neut # (Auto) 3.3 x10^3/uL (2.2-4.8) 02/11/21 04:43 Lymph # (Auto) 0.9 X10^3/uL (1.3-2.9) L 02/11/21 04:43 [place] # (Auto) 0.7 x10^3/uL (0.3-0.8) 02/11/21 04:43 Eos # (Auto) 0.1 x10^3/uL (0.0-0.2) 02/11/21 04:43 Baso # (Auto) 0.0 X10^3/uL (0.0-0.1) 02/11/21 04:43 Absolute Nucleated RBC 0.0 /100WBC 02/11/21 04:43 Sodium 139 mmol/L (136-145) 02/11/21 04:43 Corrected Sodium TNP 02/11/21 04:43 Potassium 3.7 mmol/L (3.5-5.1) 02/11/21 04:43 Chloride 107 mmol/L (98-107) 02/11/21 04:43 Carbon Dioxide 25.1 mmol/L (21-32) 02/11/21 04:43 BUN 10 mg/dL (7-18) 02/11/21 04:43 Creatinine 0.89 mg/dL (0.55-1.02) 02/11/21 04:43 Est GFR (MDRD) Af Amer > 60 (>60) 02/11/21 04:43 Est GFR (MDRD) Non-Af > 60 (>60) 02/11/21 04:43 Glucose 94 mg/dL (65-99) 02/11/21 04:43 Calcium 7.8 mg/dL (8.5-10.1) L 02/11/21 04:43 Corrected Calcium 9.3 mg/dL (8.5-10.1) 02/11/21 04:43 Total Bilirubin 0.30 mg/dL (0.2-1.0) 02/11/21 04:43 AST 7 Units/L (15-37) L 02/11/21 04:43 ALT 11 Units/L (12-78) L 02/11/21 04:43 Alkaline Phosphatase 76 Units/L (46-116) 02/11/21 04:43 Total Protein 5.3 g/dL (6.4-8.2) L 02/11/21 04:43 Albumin 2.1 g/dL (3.4-5.0) L 02/11/21 04:43 Globulin 3.2 g/dL (2.5-4.5) 02/11/21 04:43 Albumin/Globulin Ratio 0.7 Ratio (1.1-2.1) L 02/11/21 04:43 SARS CoV-2 RNA Rapid JADIEL Negative (NEGATIVE) 02/09/21 15:17 Tissue Pathology To follow 02/10/21 10:07 - Assessment and Plan 1: infected wounf Lt leg . chronic venous stasis both legs. obesity . same local care and IV ATB . future skin graft . - Problem Patient Problems: Patient Problems Decubitus ulcer of left leg (Acute) L89.899 Cellulitis of left lower extremity (Acute) L03.116
--- NOTE | 2021-02-11 10:59 | PCM.PROG ---
Progress Note Progress Note for Day of Date of Exam: 02/11/21 Subjective Subjective: Pt is a 60 year old female past medical history of hypertension, asthma, arthritis, chronic venous stasis lower extremities, admitted for left lower leg decubitus ulcer and cellulitis. Pt had excisional debridement yesterday of necrotic ulcer. She reports moderate pain at wound site. Labs/im aging: Wbc 5, Hgb 9, Plt 235, Na 139, K 3.7, Creatinine 0.89, Glucose 94, Blood culture NGTD, Wound culture: Pseudomonas aur., Proteus mirabilis. Will continue patient on IVF, pain control with IV morphine prn, Antibiotics: Zosyn. General surgery is following for wound care. Recommends future skin graft. Otherwise continue current treatment plan, restart home medications. Continue to monitor and follow up labs/imaging. Past Medical Family Social History Past Med/Fam/Surg Hx: No changes since H&P Allergies: Allergies acetaminophen [From Darvocet-N] Allergy (Verified 02/09/21 15:42) iodine Allergy (Verified 02/09/21 15:42) propoxyphene [From Darvocet-N] Allergy (Verified 02/09/21 15:42) Review of Systems ROS: No change since H&P Vital Signs and I&O's Vital Signs: Temperature 98.2 F Pulse Rate [Left] 88 Pulse Rate 108 Respiratory Rate 20 Blood Pressure [Right Arm] 123/68 Blood Pressure [Left Arm] 121/76 Blood Pressure 187/93 O2 Sat by Pulse Oximetry 95 Intake and Output: Intake & Output 02/08/21 02/09/21 02/10/21 02/11/21 23:59 23:59 23:59 23:59 Intake Total 866 / 866 2944 / 2944 600 / 600 Output Total 995 / 995 Balance 866 / 866 1949 / 1949 600 / 600 Physical Exam Oriented: Normal Eyes: Normal Ear: Normal Nose: Normal Throat: Normal Respiratory: Normal Cardiovascular: Normal : Normal Auscultation: Bowel Sounds: Normal Tenderness: Normal Skin: Wound (5 x 5 cm open wound . mils cellulitis around the edges and skin .) Musculoskeletal: Normal Psychiatric: Normal Mood Description: Calm and Appropriate Affect: Normal Speech Pattern: Clear and Appropriate Laboratory and Diagnostics Result Diagrams: 02/11/21 04:43 02/11/21 04:43 Labs: 02/09/21 12:15 Blood Blood Culture - Preliminary 02/09/21 12:05 Blood Blood Culture - Preliminary 02/10/21 09:20 Leg - Left Gram Stain - Final 02/10/21 09:20 Leg - Left Wound Culture - Preliminary 02/09/21 12:28 Leg - Left - Preliminary 02/09/21 12:05 Leg - Left Wound Culture - Final Pseudomonas Aeruginosa Proteus Mirabilis Laboratory WBC 5.0 X10^3/uL (3.6-10.0) 02/11/21 04:43 RBC 3.37 X10^6/uL (3.5-5.4) L 02/11/21 04:43 Hgb 9.0 g/dL (12.0-16.0) L D 02/11/21 04:43 Hct 28.2 % (36.0-47.0) L 02/11/21 04:43 MCV 83.6 fL (80.0-100.0) 02/11/21 04:43 MCH 26.6 pg (27.0-34.0) L 02/11/21 04:43 MCHC 31.8 g/dL (33.0-35.0) L 02/11/21 04:43 RDW 17.5 % (11.6-16.5) H 02/11/21 04:43 Plt Count 235 X10^3/uL (150.0-450.0) 02/11/21 04:43 MPV 7.9 fL (7.4-11.0) 02/11/21 04:43 Neut % (Auto) 65.4 % (42.0-75.0) 02/11/21 04:43 Lymph % (Auto) 18.9 % (21.0-51.0) L 02/11/21 04:43 [place] % (Auto) 12.9 % (0.0-13.0) 02/11/21 04:43 Eos % (Auto) 2.2 % (0.9-2.9) 02/11/21 04:43 Baso % (Auto) 0.6 % (0.2-1.0) 02/11/21 04:43 Neut # (Auto) 3.3 x10^3/uL (2.2-4.8) 02/11/21 04:43 Lymph # (Auto) 0.9 X10^3/uL (1.3-2.9) L 02/11/21 04:43 [place] # (Auto) 0.7 x10^3/uL (0.3-0.8) 02/11/21 04:43 Eos # (Auto) 0.1 x10^3/uL (0.0-0.2) 02/11/21 04:43 Baso # (Auto) 0.0 X10^3/uL (0.0-0.1) 02/11/21 04:43 Absolute Nucleated RBC 0.0 /100WBC 02/11/21 04:43 Sodium 139 mmol/L (136-145) 02/11/21 04:43 Corrected Sodium TNP 02/11/21 04:43 Potassium 3.7 mmol/L (3.5-5.1) 02/11/21 04:43 Chloride 107 mmol/L (98-107) 02/11/21 04:43 Carbon Dioxide 25.1 mmol/L (21-32) 02/11/21 04:43 BUN 10 mg/dL (7-18) 02/11/21 04:43 Creatinine 0.89 mg/dL (0.55-1.02) 02/11/21 04:43 Est GFR (MDRD) Af Amer > 60 (>60) 02/11/21 04:43 Est GFR (MDRD) Non-Af > 60 (>60) 02/11/21 04:43 Glucose 94 mg/dL (65-99) 02/11/21 04:43 Calcium 7.8 mg/dL (8.5-10.1) L 02/11/21 04:43 Corrected Calcium 9.3 mg/dL (8.5-10.1) 02/11/21 04:43 Total Bilirubin 0.30 mg/dL (0.2-1.0) 02/11/21 04:43 AST 7 Units/L (15-37) L 02/11/21 04:43 ALT 11 Units/L (12-78) L 02/11/21 04:43 Alkaline Phosphatase 76 Units/L (46-116) 02/11/21 04:43 Total Protein 5.3 g/dL (6.4-8.2) L 02/11/21 04:43 Albumin 2.1 g/dL (3.4-5.0) L 02/11/21 04:43 Globulin 3.2 g/dL (2.5-4.5) 02/11/21 04:43 Albumin/Globulin Ratio 0.7 Ratio (1.1-2.1) L 02/11/21 04:43 SARS CoV-2 RNA Rapid JADIEL Negative (NEGATIVE) 02/09/21 15:17 Tissue Pathology To follow 02/10/21 10:07 Plan (1) Decubitus ulcer of left leg: Status: Acute Plan: Antibiotics: Zosyn, Pain control Wound care General surgery following (2) Cellulitis of left lower extremity: Status: Acute
[2021-02-12] MEDS: NS 1000 ML 1,000 ML IV SCH (00:15)
[2021-02-12] MEDS: MORPHINE SULFATE INJ 2 MG INJ IVP PRN (05:22)
[2021-02-12] MEDS: ZOSYN VIAL 3.375 GRAMS 3.375 G in NS 100 ML IV + SPIKE MINIBAG* 100 ML IV SCH (05:33)
[2021-02-12 06:21] LABS: BASOPHILS % (AUTO) 0.7 % (0.2-1.0); EOSINOPHILS # (AUTO) 0.1 x10^3/uL (0.0-0.2); EOSINOPHILS % (AUTO) 2.7 % (0.9-2.9); HEMATOCRIT 28.5 % (36.0-47.0); HEMOGLOBIN 8.9 g/dL (12.0-16.0); LYMPHOCYTES % (AUTO) 23.8 % (21.0-51.0); MEAN CORPUSCULAR HEMOGLOBIN 26.4 pg (27.0-34.0); MEAN CORPUSCULAR HGB CONC 31.2 g/dL (33.0-35.0); MEAN CORPUSCULAR VOLUME 84.8 fL (80.0-100.0); MONOCYTES # (AUTO) 0.4 x10^3/uL (0.3-0.8); MONOCYTES % (AUTO) 10.2 % (0.0-13.0); NEUTROPHILS # (AUTO) 2.7 x10^3/uL (2.2-4.8); NEUTROPHILS % (AUTO) 62.6 % (42.0-75.0); PLATELET COUNT 232 X10^3/uL (150.0-450.0); RED BLOOD COUNT 3.37 X10^6/uL (3.5-5.4); RED CELL DISTRIBUTION WIDTH 17.4 % (11.6-16.5); WHITE BLOOD COUNT 4.3 X10^3/uL (3.6-10.0)
[2021-02-12 06:26] LABS: ALANINE AMINOTRANSFERASE 11 Units/L (12-78); ALBUMIN 2.2 g/dL (3.4-5.0); ALKALINE PHOSPHATASE 74 Units/L (46-116); ASPARTATE AMINO TRANSFERASE 8 Units/L (15-37); BLOOD UREA NITROGEN 8 mg/dL (7-18); CALCIUM 8.1 mg/dL (8.5-10.1); CARBON DIOXIDE 24.7 mmol/L (21-32); CHLORIDE 109 mmol/L (98-107); COR CA(FOR HYPOALB) 9.5 mg/dL (8.5-10.1); CREATININE 0.82 mg/dL (0.55-1.02); SODIUM 140 mmol/L (136-145); TOTAL PROTEIN 5.7 g/dL (6.4-8.2); eGFR NON BLACK RACES > 60 (>60)
[2021-02-12] MEDS ORDERED: ZESTRIL TAB 20 MG ONE (08:02)
--- NOTE | 2021-02-12 08:08 | W.DIS.FURT ---
Summary of Discharge Discharge Summary of Date Date of Exam: 02/12/21 Admission Date Date of Admission: 02/09/21 Admission Diagnosis Patient Problems (Updated 02/10/21 @ 11:09 by GEORGE SUAREZ) Decubitus ulcer of left leg (Acute) L89.899 Cellulitis of left lower extremity (Acute) L03.116 Hospital Course: Pt is a 60 year old female past medical history of hypertension, asthma, arthritis, chronic venous stasis lower extremities, admitted for left lower leg decubitus ulcer and cellulitis. General surgery-Dr Martinez was consulted and excisional debridement was performed on necrotic ulcer. Labs/imaging: Wbc 4.3, Hgb 8.9, Plt 232, Na 140, K 3.7, Creatinine 0.82, Glucose 85, Blood culture NGTD, Wound culture: Pseudomonas aur., Proteus mirabilis. Hospital treatment course included IVF, pain control with IV morphine prn, Antibiotics: Zosyn. Pt responded well to treatmnet. General surgery to follow wound care outpatient. Recommends future skin graft. Pt was discharged in stable condition, instructed to follow up with general surgery and pcp in 3-5 days. Vital Signs: Vital Signs (72 hours) 02/09/21 11:24 02/09/21 12:15 02/09/21 12:45 Temperature 98.9 F Pulse Rate 108 H Pulse Rate [Left] Respiratory Rate 20 20 20 Blood Pressure 187/93 Blood Pressure [Left Arm] Blood Pressure [Right Arm] O2 Sat by Pulse Oximetry 98 02/09/21 17:31 02/09/21 18:02 02/09/21 18:32 Temperature 99.2 F Pulse Rate Pulse Rate [Left] 88 Respiratory Rate 20 20 20 Blood Pressure Blood Pressure [Left Arm] 161/98 Blood Pressure [Right Arm] O2 Sat by Pulse Oximetry 100 02/09/21 20:00 02/09/21 22:09 02/09/21 22:39 Temperature 98.3 F Pulse Rate Pulse Rate [Left] 93 H Respiratory Rate 18 20 18 Blood Pressure Blood Pressure [Left Arm] 150/88 Blood Pressure [Right Arm] O2 Sat by Pulse Oximetry 99 02/10/21 00:00 02/10/21 03:15 02/10/21 03:45 Temperature 98.7 F Pulse Rate Pulse Rate [Left] 92 H Respiratory Rate 20 20 18 Blood Pressure Blood Pressure [Left Arm] 148/84 Blood Pressure [Right Arm] O2 Sat by Pulse Oximetry 98 02/10/21 04:00 02/10/21 07:58 02/10/21 08:00 Temperature 98.4 F 99.2 F Pulse Rate Pulse Rate [Left] 90 90 Respiratory Rate 20 18 20 Blood Pressure Blood Pressure [Left Arm] 129/74 148/70 Blood Pressure [Right Arm] O2 Sat by Pulse Oximetry 97 99 02/10/21 09:00 02/10/21 09:40 02/10/21 09:55 Temperature 98.2 F Pulse Rate Pulse Rate [Left] 76 Respiratory Rate 18 18 20 Blood Pressure Blood Pressure [Left Arm] 139/92 Blood Pressure [Right Arm] O2 Sat by Pulse Oximetry 99 02/10/21 10:10 02/10/21 10:25 02/10/21 10:40 Temperature Pulse Rate Pulse Rate [Left] 79 80 80 Respiratory Rate 20 20 20 Blood Pressure Blood Pressure [Left Arm] 139/92 163/90 153/91 Blood Pressure [Right Arm] O2 Sat by Pulse Oximetry 99 97 99 02/10/21 10:55 02/10/21 11:55 02/10/21 12:55 Temperature Pulse Rate Pulse Rate [Left] 80 78 86 Respiratory Rate 20 20 20 Blood Pressure Blood Pressure [Left Arm] 149/96 138/92 129/74 Blood Pressure [Right Arm] O2 Sat by Pulse Oximetry 96 99 100 02/10/21 13:55 02/10/21 14:55 02/10/21 15:28 Temperature 97.8 F Pulse Rate Pulse Rate [Left] 84 88 Respiratory Rate 20 20 18 Blood Pressure Blood Pressure [Left Arm] 133/76 120/61 Blood Pressure [Right Arm] O2 Sat by Pulse Oximetry 100 98 02/10/21 15:58 02/10/21 20:00 02/10/21 20:31 Temperature 97.7 F Pulse Rate Pulse Rate [Left] 90 Respiratory Rate 18 18 18 Blood Pressure Blood Pressure [Left Arm] 128/60 Blood Pressure [Right Arm] O2 Sat by Pulse Oximetry 98 02/10/21 21:01 02/10/21 23:53 02/11/21 02:02 Temperature 98.6 F Pulse Rate Pulse Rate [Left] 91 H Respiratory Rate 18 20 20 Blood Pressure Blood Pressure [Left Arm] 118/69 Blood Pressure [Right Arm] O2 Sat by Pulse Oximetry 100 02/11/21 02:32 02/11/21 03:37 02/11/21 06:02 Temperature 98.2 F Pulse Rate Pulse Rate [Left] 88 Respiratory Rate 20 20 20 Blood Pressure Blood Pressure [Left Arm] 121/76 Blood Pressure [Right Arm] O2 Sat by Pulse Oximetry 95 02/11/21 06:29 02/11/21 08:00 02/11/21 11:40 Temperature 98.3 F Pulse Rate Pulse Rate [Left] 80 Respiratory Rate 20 18 18 Blood Pressure Blood Pressure [Left Arm] Blood Pressure [Right Arm] 119/72 O2 Sat by Pulse Oximetry 97 02/11/21 12:00 02/11/21 12:10 02/11/21 15:39 Temperature 97.8 F Pulse Rate Pulse Rate [Left] 78 Respiratory Rate 18 20 18 Blood Pressure Blood Pressure [Left Arm] Blood Pressure [Right Arm] 143/78 O2 Sat by Pulse Oximetry 98 02/11/21 16:00 02/11/21 16:09 02/11/21 19:48 Temperature 98.4 F 97.9 F Pulse Rate Pulse Rate [Left] 77 86 Respiratory Rate 20 18 20 Blood Pressure Blood Pressure [Left Arm] Blood Pressure [Right Arm] 139/81 123/79 O2 Sat by Pulse Oximetry 98 98 02/11/21 20:52 02/11/21 21:22 02/12/21 00:00 Temperature 97.9 F Pulse Rate Pulse Rate [Left] 84 Respiratory Rate 18 18 20 Blood Pressure Blood Pressure [Left Arm] Blood Pressure [Right Arm] 114/68 O2 Sat by Pulse Oximetry 100 02/12/21 04:00 02/12/21 05:22 02/12/21 05:52 Temperature 98.0 F Pulse Rate Pulse Rate [Left] 72 Respiratory Rate 20 18 18 Blood Pressure Blood Pressure [Left Arm] Blood Pressure [Right Arm] 124/72 O2 Sat by Pulse Oximetry 99 Labs: Laboratory Last Values WBC 4.3 X10^3/uL (3.6-10.0) 02/12/21 04:45 RBC 3.37 X10^6/uL (3.5-5.4) L 02/12/21 04:45 Hgb 8.9 g/dL (12.0-16.0) L 02/12/21 04:45 Hct 28.5 % (36.0-47.0) L 02/12/21 04:45 MCV 84.8 fL (80.0-100.0) 02/12/21 04:45 MCH 26.4 pg (27.0-34.0) L 02/12/21 04:45 MCHC 31.2 g/dL (33.0-35.0) L 02/12/21 04:45 RDW 17.4 % (11.6-16.5) H 02/12/21 04:45 Plt Count 232 X10^3/uL (150.0-450.0) 02/12/21 04:45 MPV 8.0 fL (7.4-11.0) 02/12/21 04:45 Neut % (Auto) 62.6 % (42.0-75.0) 02/12/21 04:45 Lymph % (Auto) 23.8 % (21.0-51.0) 02/12/21 04:45 [place] % (Auto) 10.2 % (0.0-13.0) 02/12/21 04:45 Eos % (Auto) 2.7 % (0.9-2.9) 02/12/21 04:45 Baso % (Auto) 0.7 % (0.2-1.0) 02/12/21 04:45 Neut # (Auto) 2.7 x10^3/uL (2.2-4.8) 02/12/21 04:45 Lymph # (Auto) 1.0 X10^3/uL (1.3-2.9) L 02/12/21 04:45 [place] # (Auto) 0.4 x10^3/uL (0.3-0.8) 02/12/21 04:45 Eos # (Auto) 0.1 x10^3/uL (0.0-0.2) 02/12/21 04:45 Baso # (Auto) 0.0 X10^3/uL (0.0-0.1) 02/12/21 04:45 Absolute Nucleated RBC 0.0 /100WBC 02/12/21 04:45 Sodium 140 mmol/L (136-145) 02/12/21 04:45 Corrected Sodium TNP 02/12/21 04:45 Potassium 3.7 mmol/L (3.5-5.1) 02/12/21 04:45 Chloride 109 mmol/L (98-107) H 02/12/21 04:45 Carbon Dioxide 24.7 mmol/L (21-32) 02/12/21 04:45 BUN 8 mg/dL (7-18) 02/12/21 04:45 Creatinine 0.82 mg/dL (0.55-1.02) 02/12/21 04:45 Est GFR (MDRD) Af Amer > 60 (>60) 02/12/21 04:45 Est GFR (MDRD) Non-Af > 60 (>60) 02/12/21 04:45 Glucose 85 mg/dL (65-99) 02/12/21 04:45 Calcium 8.1 mg/dL (8.5-10.1) L 02/12/21 04:45 Corrected Calcium 9.5 mg/dL (8.5-10.1) 02/12/21 04:45 Total Bilirubin 0.30 mg/dL (0.2-1.0) 02/12/21 04:45 AST 8 Units/L (15-37) L 02/12/21 04:45 ALT 11 Units/L (12-78) L 02/12/21 04:45 Alkaline Phosphatase 74 Units/L (46-116) 02/12/21 04:45 Total Protein 5.7 g/dL (6.4-8.2) L 02/12/21 04:45 Albumin 2.2 g/dL (3.4-5.0) L 02/12/21 04:45 Globulin 3.5 g/dL (2.5-4.5) 02/12/21 04:45 Albumin/Globulin Ratio 0.6 Ratio (1.1-2.1) L 02/12/21 04:45 SARS CoV-2 RNA Rapid JADIEL Negative (NEGATIVE) 02/09/21 15:17 Tissue Pathology To follow 02/10/21 10:07 Reason For Visit: CELLULITIS LEFT LOWER EXTREMITY,DECUBITUS LEFT Discharge Date Discharge Date: 02/12/21 Discharge Diagnosis All Active Problems (Updated 02/10/21 @ 11:09 by GEORGE SUAREZ) Back pain (Acute) Hip pain, left (Acute) Cellulitis (Acute) Edema (Acute) Cellulitis of right lower leg (Acute) Cocaine abuse (Acute) Leg edema (Acute) Laceration of forehead (Acute) Laceration of ear, external, left (Acute) Low back pain (Acute) Cellulitis of left leg (Acute) Cellulitis of left leg (Acute) Edema (Acute) Leg wound, left (Acute) Decubitus ulcer of left leg (Acute) Cellulitis of left lower extremity (Acute) Acute renal failure (Acute) Hypokalemia (Acute) Dehydration (Acute) Acute hypotension (Acute) Contusion of hand (Active) Headache (Active) Asthmatic bronchitis (Acute) Acute sinusitis (Acute) Bronchitis (Acute) Asthma (Acute) Degenerative joint disease of knee, left (Acute) COPD (chronic obstructive pulmonary disease) (Acute) Knee pain (Acute) First degree burn (Acute) Leg pain, right (Acute) URI (upper respiratory infection) (Acute) Arthritis (Acute) Knee pain (Acute) Arthritis (Acute) DJD (degenerative joint disease) (Acute) Insect bite (Acute) Asthmatic bronchitis , chronic (Acute) Stasis ulcer (Acute) Chest wall contusion (Acute) Chronic joint pain (Acute) Contusion of knee, right (Acute) Neuropathic pain of right lower extremity (Acute) Hypokalemia (Acute) Cellulitis (Acute) Musculoskeletal leg pain (Acute) Periorbital edema (Acute) Edema of left orbit (Acute) Pedal edema (Acute) Back pain (Acute) Knee pain (Acute) Chronic lower back pain (Acute) Trichomonal cystitis (Acute) Insect bite (Acute) Leg pain, left (Acute) Contusion (Acute) Viral syndrome (Acute) Asthma attack (Acute) Influenza A (Acute) Osteoarthritis (Acute) Lumbar back pain (Acute) Acute dehydration (Acute) Acute hypotension (Acute) Acute hypokalemia (Acute) Rib pain on right side (Acute) Abdominal pain, acute, right upper quadrant (Acute) Plan of Treatment: Continue with present treatment and follow up plan. Pt is to keep follow up appointment as instructed and take medications as ordered. Discharge Medications Discharge Medications: acetaminophen [From Darvocet-N] Allergy (Verified 02/09/21 15:42) iodine Allergy (Verified 02/09/21 15:42) propoxyphene [From Darvocet-N] Allergy (Verified 02/09/21 15:42) CONTINUE taking the following medications albuterol sulfate [ProAir HFA] 2 puff INHALATION Q4-6H PRN 02/09/21 [History] cetirizine [Zyrtec] 10 mg PO ONCE 02/09/21 [History] cyclobenzaprine 5 mg PO BID 02/09/21 [History] fluticasone propionate [Flonase Allergy Relief] 1 spray INTRANASAL BID 02/09/21 [History] furosemide [Lasix] 40 mg PO QAM 02/09/21 [History] gabapentin 600 mg PO TID PRN 02/09/21 [History] pantoprazole [Protonix] 40 mg PO ONCE 02/09/21 [History] polyethylene glycol 3350 17 g PO DAILY 02/09/21 [History] potassium chloride 10 meq PO DAILY 02/09/21 [History] New Prescriptions levofloxacin 500 mg PO Q24H 10 Days #10 tab 02/12/21 [Rx] Follow up and Referral Follow Up: 1 Week Discharge Disposition Assessment: No acute distress noted at time of discharge. Discharge Disposition: Home Discharge Condition: Stable Discharge Plan Discharge Plan Hospital Course: Pt is a 60 year old female past medical history of hypertension, asthma, arthritis, chronic venous stasis lower extremities, admitted for left lower leg decubitus ulcer and cellulitis. General surgery-Dr Martinez was consulted and excisional debridement was performed on necrotic ulcer. Labs/imaging: Wbc 4.3, Hgb 8.9, Plt 232, Na 140, K 3.7, Creatinine 0.82, Glucose 85, Blood culture NGTD, Wound culture: Pseudomonas aur., Proteus mirabilis. Hospital treatment course included IVF, pain control with IV morphine prn, Antibiotics: Zosyn. Pt responded well to treatmnet. General surgery to follow wound care outpatient. Recommends future skin graft. Pt was discharged in stable condition, instructed to follow up with general surgery and pcp in 3-5 days. Patient Disposition: 01 , SELF-CARE Condition: Stable Health Concerns: Post Hospitalization: new medications and changes needed to prevent readmission or further decline. Pt educated and given instructions on all concerns. Care Plan Goals: Problem: Infection Goal: Temperature within normal limits. Resolved infection. Instructions: Follow provided instructions. Follow up with primary physician as directed. Contact primary care physician or report to the closest Emergency Room if condition worsens. Plan of Treatment: Continue with present treatment and follow up plan. Pt is to keep follow up appointment as instructed and take medications as ordered. Assessment: No acute distress noted at time of discharge. Prescriptions: New levofloxacin 500 mg tablet 500 mg PO Q24H 10 Days Qty: 10 RF: 0 Continued famotidine 40 mg Tablet 20 mg PO DAILY RF: 0 meloxicam 7.5 mg Tablet 7.5 mg PO BID RF: 0 lisinopril 20 mg Tablet 10 mg PO DAILY RF: 0 furosemide [Lasix] 40 mg Tablet 40 mg PO QAM RF: 0 gabapentin 600 mg Tablet 600 mg PO TID PRN (Reason: Pain) RF: 0 potassium chloride 10 mEq Tablet,Er Particles/Crystals 10 meq PO DAILY RF: 0 polyethylene glycol 3350 17 gram Powder In Packet 17 g PO DAILY RF: 0 cetirizine [Zyrtec] 10 mg Tablet 10 mg PO ONCE RF: 0 pantoprazole [Protonix] 40 mg Tablet,Delayed Release (Dr/Ec) 40 mg PO ONCE RF: 0 albuterol sulfate [ProAir HFA] 90 mcg/actuation Hfa Aerosol Inhaler 2 puff INHALATION Q4-6H PRNRF: 0 fluticasone propionate [Flonase Allergy Relief] 50 mcg/actuation [place],Suspension 1 spray INTRANASAL BID RF: 0 cyclobenzaprine 5 mg Tablet 5 mg PO BID RF: 0 Discontinued hydrocodone-acetaminophen 10-325 mg tablet 1 tab PO Q6H MDD 4 PRNQty: 8 RF: 0 Follow ups/Referrals Follow ups/Referrals: Rodolfo Bowers [Primary Care Provider] - 02/19/21 12:30 pm JH MARTINEZ [STAFF PHYSICIAN] - 02/16/21 9:30 am Instructions Instructions: Wound Infection, Opioid Pain Medicine Information, Hand Washing, [id number], How to Change Your Dressing, Gved-as-[id number], Personal Hygiene, Cellulitis, Adult, [id number], Hypertension, [id number], Edema, [id number] Activity Restrictions/Additional Instructions: Return to the emergency room on Monday for dressing change and Tues Dr. Martinez with see you in the office and change the dressing. Stand Alone Forms: Excuse From Work or School, Precautions for COVID19, Patient Portal, Social Distancing
[2021-02-12] MEDS: ZESTRIL TAB 20 MG PO SCH (08:29)
[2021-02-12 12:04] VITALS: BP 140/64
== END 2021-02-12 12:50 | disposition home or self-care (01) | DRG 572 ==
LOC: ER 11:22 → MED/SURG 15:34
PROVIDERS: ADMIT Family Medicine; ATTEND Family Medicine
DX: L03.116 Cellulitis of left lower limb; L89.899 Pressure ulcer of other site, unspecified stage; Z20.822 Contact with and (suspected) exposure to COVID-19; B96.5 Pseudomonas (aeruginosa) (mallei) (pseudomallei) as the cause of diseases classified elsewhere; B96.4 Proteus (mirabilis) (morganii) as the cause of diseases classified elsewhere; I83.028 Varicose veins of left lower extremity with ulcer other part of lower leg

== ENCOUNTER 2021-02-24 07:56 | Inpatient (IN) ==
--- NOTE | 2021-02-24 08:04 | DR.H&P ---
H&P History & Physical for Day of: H&P Date: 02/24/21 Chief Complaint Chief Complaint: Left leg wound Allergies Allergies Allergy/AdvReac Type Severity Reaction Status Date / Time acetaminophen Allergy Verified 02/09/21 15:42 [From Darvocet-N] iodine Allergy Verified 02/09/21 15:42 propoxyphene Allergy Verified 02/09/21 15:42 [From Darvocet-N] History of Present Illness History of Present Illness: Pt is a 60 year old female past medical history of hypertension, asthma, arthritis, chronic venous stasis lower extremities, admitted for infection of left lower leg decubitus ulcer. She was recently hospitalized for same problem and had debridement of necrotic tissue of ulcer. She was recently seen by general surgery outpatient,recommended further debridement and split thickness skin graft. General surgery-Dr Martinez consulted. Labs/imaging: Wbc 5.5, Hgb 10.5, Plt 297, Na 143, K 4.4, Creatinine 1.07, Glucose 97. CXR: no acute cardiopulmonary process. Will start on IVF NS@75ml/h, obtain wound cultures, U/S lower extremity, start on antibiotics IV Cefazolin and Flagyl. Continue to monitor, follow up labs/imaging, and surgery evaluation/treatment. Past Medical History Past Medical History: Hypertension Past Surgical History Surgical History: Appendectomy, Hysterectomy and Other Family History Family Medical History: Hypertension Medications Home Medications: acetaminophen [From Darvocet-N] Allergy (Verified 02/09/21 15:42) iodine Allergy (Verified 02/09/21 15:42) propoxyphene [From Darvocet-N] Allergy (Verified 02/09/21 15:42) Labs Result Diagrams: 02/24/21 08:28 02/24/21 08:28 Review of Systems Constitutional: No Symptoms Reported Eyes: No Symptoms Reported ENT: No Symptoms Reported Respiratory: No Symptoms Reported Cardiovascular: No Symptoms Reported Gastrointestinal: No Symptoms Reported Genitourinary: No Symptoms Reported Musculoskeletal: Leg Pain (Left Lower ext pain, wound) Skin: Wound (LLE) Neurological: No Symptoms Reported Physical Exam Vital Signs: Blood Pressure [Right Arm] 140/64 Blood Pressure [Left Arm] 121/76 Blood Pressure 178/110 Oriented: Normal Eyes: Normal Ear: Normal Nose: Normal Throat: Normal Respiratory: Clear Throughout Cardiovascular: Normal : Normal Auscultation: Bowel Sounds: Normal Palpation: Normal Tenderness: Normal Skin: Wound (left lower extremity infected wound noted ) Musculoskeletal: Normal Psychiatric: Normal Mood Description: Calm and Appropriate Affect: Normal Speech Pattern: Clear and Appropriate Assessment/Plan (1) Decubitus ulcer of left leg: Status: Acute Plan: Infected, plan for further debridement and skin graft by general surgery IV antibiotics, Wound culture pending Review H&P Reviewed: Yes Patient was examined?: Yes
[2021-02-24 08:48] LABS: BASOPHILS % (AUTO) 0.7 % (0.2-1.0); EOSINOPHILS # (AUTO) 0.2 x10^3/uL (0.0-0.2); EOSINOPHILS % (AUTO) 3.1 % (0.9-2.9); HEMATOCRIT 32.9 % (36.0-47.0); HEMOGLOBIN 10.5 g/dL (12.0-16.0); LYMPHOCYTES # (AUTO) 1.3 X10^3/uL (1.3-2.9); LYMPHOCYTES % (AUTO) 23.6 % (21.0-51.0); MEAN CORPUSCULAR HEMOGLOBIN 26.8 pg (27.0-34.0); MEAN CORPUSCULAR HGB CONC 31.9 g/dL (33.0-35.0); MEAN CORPUSCULAR VOLUME 84.1 fL (80.0-100.0); MEAN PLATELET VOLUME 7.3 fL (7.4-11.0); MONOCYTES # (AUTO) 0.4 x10^3/uL (0.3-0.8); NEUTROPHILS # (AUTO) 3.5 x10^3/uL (2.2-4.8); NEUTROPHILS % (AUTO) 64.6 % (42.0-75.0); PLATELET COUNT 297 X10^3/uL (150.0-450.0); RED BLOOD COUNT 3.91 X10^6/uL (3.5-5.4); WHITE BLOOD COUNT 5.5 X10^3/uL (3.6-10.0)
[2021-02-24] MEDS: NS 1000 ML 1,000 ML IV SCH (09:00)
--- NOTE | 2021-02-24 09:06 | RAD ---
HISTORYPRE-OP ULCER LT LEGSTUDYCHEST, 1 FZOVCPEASUTAIO29/14/2020.TECHNIQUEAP view of the chestFINDINGSThe cardiac silhouette is mildly enlarged but stable. Mediastinal contours appear normal. No consolidation or segmental lung collapse. No definite pleural effusion or pneumothorax.IMPRESSIONNo acute pulmonary process.Electronically signed by: Ronny Coello (Feb 24, 2021 09:03:42)
[2021-02-24 09:10] LABS: ALANINE AMINOTRANSFERASE 16 Units/L (12-78); ALKALINE PHOSPHATASE 106 Units/L (46-116); ASPARTATE AMINO TRANSFERASE 9 Units/L (15-37); BLOOD UREA NITROGEN 19 mg/dL (7-18); CALCIUM 8.9 mg/dL (8.5-10.1); CHLORIDE 108 mmol/L (98-107); COR CA(FOR HYPOALB) 9.7 mg/dL (8.5-10.1); CREATININE 1.07 mg/dL (0.55-1.02); SODIUM 143 mmol/L (136-145); TOTAL PROTEIN 7.4 g/dL (6.4-8.2); eGFR NON BLACK RACES 56 (>60)
[2021-02-24 10:21] VITALS: BMI 38.9
--- NOTE | 2021-02-24 10:49 | VAS ---
HISTORYULCER TO LT LEG peripheral edema. Pain. Evaluate venous thrombosis.STUDYLOWER EXT VENOUS, UNILATERALCOMPARISONNoneTECHNIQUETwenty-three images made by the back up scan coordinator. Mireles scale and color fl ow Doppler images of the left lower extremity deep venous system were obtained.FINDINGSThere was norm al compressibility and flow characteristics from the common femoral vein to the popliteal vein. No ev idence of deep venous thrombosis.Proximal profunda femoral vein was patent with no thrombus.Proximal greater saphenous vein was patent with no superficial thrombophlebitis.Right common femoral vein was patent for comparison.IMPRESSION1. No lower extremity venous thrombosisElectronically signed by: Ortiz Hansen (Feb 24, 2021 10:47:13)
[2021-02-24] MEDS ORDERED: NS 100 ML IV + SPIKE MINIBAG* 0 ML IV ONE (10:50)
[2021-02-24] MEDS: FLAGYL IV PREMIX 500 MG BAG 500 MG/100 ML BAG IV SCH ×3 (11:08→21:10)
[2021-02-24] MEDS: ANCEF VIAL 1 GRAM IVP SCH ×3 (11:08→21:05)
[2021-02-24] MEDS: LOVENOX INJ 40 MG SYR SC SCH (11:09)
[2021-02-24] MEDS: MORPHINE SULFATE INJ 2 MG INJ IVP PRN ×3 (11:11→23:23)
[2021-02-24] MEDS ORDERED: ZESTRIL TAB 20 MG ONE (15:39)
[2021-02-24] MEDS: NEURONTIN TAB 600 MG PO SCH (16:10)
[2021-02-24] MEDS: ZESTRIL TAB 20 MG PO SCH (16:10)
[2021-02-24] MEDS: PEPCID TAB 40 MG PO SCH (16:11)
[2021-02-24] MEDS: PROTONIX TAB 40 MG PO SCH (16:23)
[2021-02-24] MEDS: ZOFRAN INJ 4 MG VIAL IVP PRN (18:08)
[2021-02-24] MEDS: FLEXERIL TAB 10 MG PO SCH (21:05)
[2021-02-24] MEDS: MOBIC TAB 15 MG PO SCH (21:05)
[2021-02-25] MEDS: NS 1000 ML 1,000 ML IV SCH ×3 (00:30→16:19)
[2021-02-25] MEDS: ANCEF VIAL 1 GRAM IVP SCH ×3 (05:35→21:03)
[2021-02-25] MEDS: FLAGYL IV PREMIX 500 MG BAG 500 MG/100 ML BAG IV SCH ×3 (05:45→21:04)
[2021-02-25] MEDS ORDERED: ZESTRIL TAB 20 MG ONE (08:15)
[2021-02-25 08:40] LABS: BASOPHILS % (AUTO) 0.9 % (0.2-1.0); EOSINOPHILS # (AUTO) 0.1 x10^3/uL (0.0-0.2); EOSINOPHILS % (AUTO) 3.2 % (0.9-2.9); HEMATOCRIT 29.5 % (36.0-47.0); HEMOGLOBIN 9.5 g/dL (12.0-16.0); LYMPHOCYTES # (AUTO) 1.1 X10^3/uL (1.3-2.9); LYMPHOCYTES % (AUTO) 24.7 % (21.0-51.0); MEAN CORPUSCULAR HEMOGLOBIN 27.1 pg (27.0-34.0); MEAN CORPUSCULAR HGB CONC 32.3 g/dL (33.0-35.0); MEAN CORPUSCULAR VOLUME 83.9 fL (80.0-100.0); MEAN PLATELET VOLUME 7.2 fL (7.4-11.0); MONOCYTES # (AUTO) 0.4 x10^3/uL (0.3-0.8); MONOCYTES % (AUTO) 9.5 % (0.0-13.0); NEUTROPHILS # (AUTO) 2.7 x10^3/uL (2.2-4.8); NEUTROPHILS % (AUTO) 61.7 % (42.0-75.0); PLATELET COUNT 243 X10^3/uL (150.0-450.0); RED BLOOD COUNT 3.52 X10^6/uL (3.5-5.4); RED CELL DISTRIBUTION WIDTH 16.9 % (11.6-16.5); WHITE BLOOD COUNT 4.4 X10^3/uL (3.6-10.0)
[2021-02-25 08:51] LABS: ALANINE AMINOTRANSFERASE 9 Units/L (12-78); ALBUMIN 2.5 g/dL (3.4-5.0); ALKALINE PHOSPHATASE 80 Units/L (46-116); ASPARTATE AMINO TRANSFERASE 7 Units/L (15-37); BLOOD UREA NITROGEN 13 mg/dL (7-18); CALCIUM 8.4 mg/dL (8.5-10.1); CARBON DIOXIDE 28.3 mmol/L (21-32); CHLORIDE 107 mmol/L (98-107); COR CA(FOR HYPOALB) 9.6 mg/dL (8.5-10.1); CREATININE 0.82 mg/dL (0.55-1.02); SODIUM 142 mmol/L (136-145); TOTAL PROTEIN 6.3 g/dL (6.4-8.2); eGFR NON BLACK RACES > 60 (>60)
[2021-02-25] MEDS: MORPHINE SULFATE INJ 2 MG INJ IVP PRN ×2 (09:20→20:50)
[2021-02-25] MEDS: ZESTRIL TAB 20 MG PO SCH (09:24)
[2021-02-25] MEDS ORDERED: BETADINE SOLN ONE (10:55)
[2021-02-25] MEDS ORDERED: ZOFRAN INJ 4 MG VIAL ONE (11:05)
[2021-02-25] MEDS ORDERED: SUPRANE ONE (11:05)
[2021-02-25] MEDS ORDERED: VERSED ONE (11:05)
[2021-02-25] MEDS ORDERED: FENTANYL INJ 100 mcg ONE (11:05)
[2021-02-25] MEDS ORDERED: DIPRIVAN VIAL ONE (11:05)
[2021-02-25] MEDS ORDERED: POLYMYXIN B SULFATE ONE (11:09)
[2021-02-25] MEDS ORDERED: ANCEF 1 GRAM IV PREMIX* 2 G/100 ML BAG IV ONE (11:19)
[2021-02-25] MEDS ORDERED: BENADRYL INJ 50 MG VIAL IVP PRN (12:37)
[2021-02-25] MEDS ORDERED: REGLAN INJ 10 MG VIAL IVP PRN (12:37)
[2021-02-25] MEDS ORDERED: PHENERGAN INJ 25 MG IM PRN (12:37)
[2021-02-25] MEDS ORDERED: ZOFRAN INJ 4 MG VIAL IVP PRN (12:37)
[2021-02-25] MEDS: DILAUDID INJ IVP PRN ×2 (12:44→13:04)
--- NOTE | 2021-02-25 14:10 | PCM.PROG ---
Progress Note Progress Note for Day of Date of Exam: 02/25/21 Subjective Subjective: Pt is a 60 year old female past medical history of hypertension, asthma, arthritis, chronic venous stasis lower extremities, admitted for left lower leg decubitus ulcer. No acute events overnight. Pt is scheduled this morning to have split thickness skin graft. Labs/imaging: Wbc 4.4, Hgb 9.5, Plt 243, Na 142, K 4.5, Creatinine 0.82, Glucose 82. IVF NS@KVO, Wound cultures pending, U/S lower extremity: no lower extremity venous thrombosis. Will continue antibiotics IV Cefazolin and Flagyl. Monitor and follow up labs/imaging in the morning. Past Medical Family Social History Past Med/Fam/Surg Hx: No changes since H&P Allergies: Allergies acetaminophen [From Darvocet-N] Allergy (Verified 02/09/21 15:42) iodine Allergy (Verified 02/09/21 15:42) propoxyphene [From Darvocet-N] Allergy (Verified 02/09/21 15:42) Review of Systems ROS: No change since H&P Vital Signs and I&O's Vital Signs: Temperature 98.0 F Pulse Rate [Right] 76 Pulse Rate [Left] 78 Pulse Rate 70 Respiratory Rate 20 Blood Pressure [Right Arm] 136/87 Blood Pressure [Left Arm] 112/70 Blood Pressure 129/69 O2 Sat by Pulse Oximetry 98 Intake and Output: Intake & Output 02/22/21 02/23/21 02/24/21 02/25/21 23:59 23:59 23:59 23:59 Intake Total 1447 / 1447 1241 / 1241 Output Total 160 / 160 Balance 1447 / 1447 1081 / 1081 Physical Exam Oriented: Normal Eyes: Normal Ear: Normal Nose: Normal Throat: Normal Respiratory: Normal Cardiovascular: Normal : Normal Auscultation: Bowel Sounds: Normal Tenderness: Normal Skin: Wound (left lower extremity infected wound noted ) Musculoskeletal: Normal Psychiatric: Normal Mood Description: Anxious Affect: Normal Speech Pattern: Clear and Appropriate Laboratory and Diagnostics Result Diagrams: 02/25/21 08:14 02/25/21 08:14 Labs: 02/24/21 09:58 Leg - Left Wound Gram Stain - Final 02/24/21 09:58 Leg - Left Wound Culture - Preliminary Laboratory WBC 4.4 X10^3/uL (3.6-10.0) 02/25/21 08:14 RBC 3.52 X10^6/uL (3.5-5.4) 02/25/21 08:14 Hgb 9.5 g/dL (12.0-16.0) L 02/25/21 08:14 Hct 29.5 % (36.0-47.0) L 02/25/21 08:14 MCV 83.9 fL (80.0-100.0) 02/25/21 08:14 MCH 27.1 pg (27.0-34.0) 02/25/21 08:14 MCHC 32.3 g/dL (33.0-35.0) L 02/25/21 08:14 RDW 16.9 % (11.6-16.5) H 02/25/21 08:14 Plt Count 243 X10^3/uL (150.0-450.0) 02/25/21 08:14 MPV 7.2 fL (7.4-11.0) L 02/25/21 08:14 Neut % (Auto) 61.7 % (42.0-75.0) 02/25/21 08:14 Lymph % (Auto) 24.7 % (21.0-51.0) 02/25/21 08:14 [place] % (Auto) 9.5 % (0.0-13.0) 02/25/21 08:14 Eos % (Auto) 3.2 % (0.9-2.9) H 02/25/21 08:14 Baso % (Auto) 0.9 % (0.2-1.0) 02/25/21 08:14 Neut # (Auto) 2.7 x10^3/uL (2.2-4.8) 02/25/21 08:14 Lymph # (Auto) 1.1 X10^3/uL (1.3-2.9) L 02/25/21 08:14 [place] # (Auto) 0.4 x10^3/uL (0.3-0.8) 02/25/21 08:14 Eos # (Auto) 0.1 x10^3/uL (0.0-0.2) 02/25/21 08:14 Baso # (Auto) 0.0 X10^3/uL (0.0-0.1) 02/25/21 08:14 Absolute Nucleated RBC 0.2 /100WBC 02/25/21 08:14 Sodium 142 mmol/L (136-145) 02/25/21 08:14 Corrected Sodium TNP 02/25/21 08:14 Potassium 4.5 mmol/L (3.5-5.1) 02/25/21 08:14 Chloride 107 mmol/L (98-107) 02/25/21 08:14 Carbon Dioxide 28.3 mmol/L (21-32) 02/25/21 08:14 BUN 13 mg/dL (7-18) 02/25/21 08:14 Creatinine 0.82 mg/dL (0.55-1.02) 02/25/21 08:14 Est GFR (MDRD) Af Amer > 60 (>60) 02/25/21 08:14 Est GFR (MDRD) Non-Af > 60 (>60) 02/25/21 08:14 Glucose 82 mg/dL (65-99) 02/25/21 08:14 Calcium 8.4 mg/dL (8.5-10.1) L 02/25/21 08:14 Corrected Calcium 9.6 mg/dL (8.5-10.1) 02/25/21 08:14 Total Bilirubin 0.30 mg/dL (0.2-1.0) 02/25/21 08:14 AST 7 Units/L (15-37) L 02/25/21 08:14 ALT 9 Units/L (12-78) L 02/25/21 08:14 Alkaline Phosphatase 80 Units/L (46-116) 02/25/21 08:14 Total Protein 6.3 g/dL (6.4-8.2) L 02/25/21 08:14 Albumin 2.5 g/dL (3.4-5.0) L 02/25/21 08:14 Globulin 3.8 g/dL (2.5-4.5) 02/25/21 08:14 Albumin/Globulin Ratio 0.7 Ratio (1.1-2.1) L 02/25/21 08:14 SARS CoV-2 RNA Rapid JADIEL Negative (NEGATIVE) 02/24/21 08:21 Plan (1) Decubitus ulcer of left leg: Status: Acute Plan: Infected, plan for further debridement and skin graft by general surgery IV antibiotics, Wound culture pending
[2021-02-25] MEDS: FLEXERIL TAB 10 MG PO SCH ×2 (14:40→20:49)
[2021-02-25] MEDS: LASIX PO SCH (14:41)
[2021-02-25] MEDS: MICRO K EXTEN CAP 10 MEQ PO SCH (14:41)
[2021-02-25] MEDS: NEURONTIN TAB 600 MG PO SCH (14:42)
[2021-02-25] MEDS: MOBIC TAB 15 MG PO SCH ×2 (14:42→20:49)
[2021-02-25] MEDS: PEPCID TAB 40 MG PO SCH (14:42)
[2021-02-25] MEDS: PROTONIX TAB 40 MG PO SCH (14:43)
[2021-02-25] MEDS: LOVENOX INJ 40 MG SYR SC SCH (14:56)
[2021-02-25] MEDS: ZOFRAN INJ 4 MG VIAL IVP PRN (16:19)
[2021-02-26] MEDS: MORPHINE SULFATE INJ 2 MG INJ IVP PRN (02:58)
[2021-02-26] MEDS: ZOFRAN INJ 4 MG VIAL IVP PRN ×3 (02:59→12:03)
[2021-02-26] MEDS: NS 1000 ML 1,000 ML IV SCH ×2 (04:39→18:08)
[2021-02-26 05:03] LABS: BASOPHILS % (AUTO) 0.7 % (0.2-1.0); EOSINOPHILS # (AUTO) 0.1 x10^3/uL (0.0-0.2); EOSINOPHILS % (AUTO) 2.3 % (0.9-2.9); HEMATOCRIT 33.1 % (36.0-47.0); HEMOGLOBIN 10.3 g/dL (12.0-16.0); LYMPHOCYTES % (AUTO) 16.4 % (21.0-51.0); MEAN CORPUSCULAR HEMOGLOBIN 26.2 pg (27.0-34.0); MEAN CORPUSCULAR VOLUME 84.4 fL (80.0-100.0); MEAN PLATELET VOLUME 7.7 fL (7.4-11.0); MONOCYTES # (AUTO) 0.5 x10^3/uL (0.3-0.8); MONOCYTES % (AUTO) 7.5 % (0.0-13.0); NEUTROPHILS # (AUTO) 4.4 x10^3/uL (2.2-4.8); NEUTROPHILS % (AUTO) 73.1 % (42.0-75.0); PLATELET COUNT 274 X10^3/uL (150.0-450.0); RED BLOOD COUNT 3.92 X10^6/uL (3.5-5.4); RED CELL DISTRIBUTION WIDTH 16.7 % (11.6-16.5)
[2021-02-26 05:10] LABS: ALANINE AMINOTRANSFERASE 11 Units/L (12-78); ALBUMIN 2.6 g/dL (3.4-5.0); ALKALINE PHOSPHATASE 86 Units/L (46-116); ASPARTATE AMINO TRANSFERASE 8 Units/L (15-37); BLOOD UREA NITROGEN 10 mg/dL (7-18); CALCIUM 8.5 mg/dL (8.5-10.1); CARBON DIOXIDE 28.9 mmol/L (21-32); CHLORIDE 105 mmol/L (98-107); COR CA(FOR HYPOALB) 9.6 mg/dL (8.5-10.1); COR NA(FOR HYPERGLY) 141 mmol/L (136-145); CREATININE 0.91 mg/dL (0.55-1.02); SODIUM 141 mmol/L (136-145); TOTAL PROTEIN 6.7 g/dL (6.4-8.2); eGFR NON BLACK RACES > 60 (>60)
[2021-02-26] MEDS: ANCEF VIAL 1 GRAM IVP SCH ×3 (05:34→21:36)
[2021-02-26] MEDS: FLAGYL IV PREMIX 500 MG BAG 500 MG/100 ML BAG IV SCH ×3 (05:34→21:36)
[2021-02-26] MEDS ORDERED: ULTRAM PO PRN (08:20)
[2021-02-26] MEDS ORDERED: ZESTRIL TAB 20 MG ONE (08:37)
[2021-02-26] MEDS: PROTONIX TAB 40 MG PO SCH (09:04)
[2021-02-26] MEDS: MOBIC TAB 15 MG PO SCH ×2 (09:04→21:36)
[2021-02-26] MEDS: FLEXERIL TAB 10 MG PO SCH ×2 (09:05→21:36)
[2021-02-26] MEDS: MICRO K EXTEN CAP 10 MEQ PO SCH (09:05)
[2021-02-26] MEDS: LASIX PO SCH (09:05)
[2021-02-26] MEDS: PEPCID TAB 40 MG PO SCH (09:06)
[2021-02-26] MEDS: NEURONTIN TAB 600 MG PO SCH (09:06)
[2021-02-26] MEDS: LOVENOX INJ 40 MG SYR SC SCH (09:07)
[2021-02-26] MEDS: ZESTRIL TAB 20 MG PO SCH (09:07)
--- NOTE | 2021-02-26 09:50 | DR.PROGNOT ---
Hospital Progress Notes - Progress Note for Day of: Progress Note Date: 02/26/21 - Chief Complaint Chief Complaint: comfortable with moderate pain Lt leg . CBC, Lytes , BUN/Creatinine are normal . dressing on the donor site was removed , Xeroform was kept on place . - Past Medical Family Social History Past Med/Fam/Surg Hx: No changes since H&P Allergies: Allergies acetaminophen [From Darvocet-N] Allergy (Verified 02/09/21 15:42) iodine Allergy (Verified 02/09/21 15:42) propoxyphene [From Darvocet-N] Allergy (Verified 02/09/21 15:42) - Review Of Systems ROS: No change since H&P - Vital Signs Vital Signs: Temperature 99.1 F Pulse Rate [Right] 73 Pulse Rate [Left] 78 Pulse Rate 72 Respiratory Rate 18 Blood Pressure [Right Arm] 171/94 Blood Pressure [Left Arm] 112/70 Blood Pressure 128/70 O2 Sat by Pulse Oximetry 99 - Physical Exam Oriented: Normal Eyes: Normal Ear: Normal Nose: Normal Throat: Normal Respiratory: Normal Cardiovascular: Normal : Normal GI:Auscultation: Normal GI:Palpation: Normal GI: Tenderness: Normal Skin: Wound (dressing on graft site is intact ) Musculoskeletal: Normal Psychiatric: Normal Mood Description: Anxious Affect: Normal Speech Pattern: Clear, Appropriate - Laboratory and Diagnostics Result Diagrams: 02/26/21 04:25 02/26/21 04:25 Labs: 02/24/21 09:58 Leg - Left Wound Gram Stain - Final 02/24/21 09:58 Leg - Left Wound Culture - Preliminary Laboratory WBC 6.0 X10^3/uL (3.6-10.0) 02/26/21 04:25 RBC 3.92 X10^6/uL (3.5-5.4) 02/26/21 04:25 Hgb 10.3 g/dL (12.0-16.0) L 02/26/21 04:25 Hct 33.1 % (36.0-47.0) L 02/26/21 04:25 MCV 84.4 fL (80.0-100.0) 02/26/21 04:25 MCH 26.2 pg (27.0-34.0) L 02/26/21 04:25 MCHC 31.0 g/dL (33.0-35.0) L 02/26/21 04:25 RDW 16.7 % (11.6-16.5) H 02/26/21 04:25 Plt Count 274 X10^3/uL (150.0-450.0) 02/26/21 04:25 MPV 7.7 fL (7.4-11.0) 02/26/21 04:25 Neut % (Auto) 73.1 % (42.0-75.0) 02/26/21 04:25 Lymph % (Auto) 16.4 % (21.0-51.0) L 02/26/21 04:25 [place] % (Auto) 7.5 % (0.0-13.0) 02/26/21 04:25 Eos % (Auto) 2.3 % (0.9-2.9) 02/26/21 04:25 Baso % (Auto) 0.7 % (0.2-1.0) 02/26/21 04:25 Neut # (Auto) 4.4 x10^3/uL (2.2-4.8) 02/26/21 04:25 Lymph # (Auto) 1.0 X10^3/uL (1.3-2.9) L 02/26/21 04:25 [place] # (Auto) 0.5 x10^3/uL (0.3-0.8) 02/26/21 04:25 Eos # (Auto) 0.1 x10^3/uL (0.0-0.2) 02/26/21 04:25 Baso # (Auto) 0.0 X10^3/uL (0.0-0.1) 02/26/21 04:25 Absolute Nucleated RBC 0.0 /100WBC 02/26/21 04:25 Sodium 141 mmol/L (136-145) 02/26/21 04:25 Corrected Sodium 141 mmol/L (136-145) 02/26/21 04:25 Potassium 3.9 mmol/L (3.5-5.1) 02/26/21 04:25 Chloride 105 mmol/L (98-107) 02/26/21 04:25 Carbon Dioxide 28.9 mmol/L (21-32) 02/26/21 04:25 BUN 10 mg/dL (7-18) 02/26/21 04:25 Creatinine 0.91 mg/dL (0.55-1.02) 02/26/21 04:25 Est GFR (MDRD) Af Amer > 60 (>60) 02/26/21 04:25 Est GFR (MDRD) Non-Af > 60 (>60) 02/26/21 04:25 Glucose 112 mg/dL (65-99) H 02/26/21 04:25 Calcium 8.5 mg/dL (8.5-10.1) 02/26/21 04:25 Corrected Calcium 9.6 mg/dL (8.5-10.1) 02/26/21 04:25 Total Bilirubin 0.40 mg/dL (0.2-1.0) 02/26/21 04:25 AST 8 Units/L (15-37) L 02/26/21 04:25 ALT 11 Units/L (12-78) L 02/26/21 04:25 Alkaline Phosphatase 86 Units/L (46-116) 02/26/21 04:25 Total Protein 6.7 g/dL (6.4-8.2) 02/26/21 04:25 Albumin 2.6 g/dL (3.4-5.0) L 02/26/21 04:25 Globulin 4.1 g/dL (2.5-4.5) 02/26/21 04:25 Albumin/Globulin Ratio 0.6 Ratio (1.1-2.1) L 02/26/21 04:25 SARS CoV-2 RNA Rapid JADIEL Negative (NEGATIVE) 02/24/21 08:21 - Assessment and Plan 1: chronic Lt leg ulcer . s/p split thickness skin graft . same IV ATB . leg elevation , DVT prophylaxis . may ambulate to bathroom with assistance . to keep dressing intact for one week .
--- NOTE | 2021-02-26 13:15 | PCM.PROG ---
Progress Note Progress Note for Day of Date of Exam: 02/26/21 Subjective Subjective: Pt is a 60 year old female past medical history of hypertension, asthma, arthritis, chronic venous stasis lower extremities, admitted for left lower leg decubitus ulcer s/p split thickness skin graft. Pt is doing well post- procedure. This morning pt reports having some nausea and vomiting but is improving. Will order zofran for nausea and tramadol for pain control. Labs/imaging: Wbc 6.0, Hgb 10.3, Plt 274, Na 141, K 3.9, Creatinine 0.91, Glucose 112. IVF NS@KVO, Wound cultures prelim gram negative rods. Continue wound care and antibiotics IV Cefazolin and Flagyl. General surgery following. Will need IV antibiotics through the weekend. Monitor and follow up labs/imaging in the morning. Past Medical Family Social History Past Med/Fam/Surg Hx: No changes since H&P Allergies: Allergies acetaminophen [From Darvocet-N] Allergy (Verified 02/09/21 15:42) iodine Allergy (Verified 02/09/21 15:42) propoxyphene [From Darvocet-N] Allergy (Verified 02/09/21 15:42) Review of Systems ROS: No change since H&P Vital Signs and I&O's Vital Signs: Temperature 99.1 F Pulse Rate [Right] 73 Pulse Rate [Left] 78 Pulse Rate 72 Respiratory Rate 18 Blood Pressure [Right Arm] 171/94 Blood Pressure [Left Arm] 112/70 Blood Pressure 128/70 O2 Sat by Pulse Oximetry 99 Intake and Output: Intake & Output 02/23/21 02/24/21 02/25/21 02/26/21 23:59 23:59 23:59 23:59 Intake Total 1447 / 1447 7 / 2046 240 / 240 Output Total 160 / 160 Balance 1447 / 1447 1887 / 1887 240 / 240 Physical Exam Oriented: Normal Eyes: Normal Ear: Normal Nose: Normal Throat: Normal Respiratory: Normal Cardiovascular: Normal : Normal Auscultation: Bowel Sounds: Normal Tenderness: Normal Skin: Wound (dressing on graft site is intact ) Musculoskeletal: Normal Psychiatric: Normal Mood Description: Anxious Affect: Normal Speech Pattern: Clear and Appropriate Laboratory and Diagnostics Result Diagrams: 02/26/21 04:25 02/26/21 04:25 Labs: 02/24/21 09:58 Leg - Left Wound Gram Stain - Final 02/24/21 09:58 Leg - Left Wound Culture - Preliminary Laboratory WBC 6.0 X10^3/uL (3.6-10.0) 02/26/21 04:25 RBC 3.92 X10^6/uL (3.5-5.4) 02/26/21 04:25 Hgb 10.3 g/dL (12.0-16.0) L 02/26/21 04:25 Hct 33.1 % (36.0-47.0) L 02/26/21 04:25 MCV 84.4 fL (80.0-100.0) 02/26/21 04:25 MCH 26.2 pg (27.0-34.0) L 02/26/21 04:25 MCHC 31.0 g/dL (33.0-35.0) L 02/26/21 04:25 RDW 16.7 % (11.6-16.5) H 02/26/21 04:25 Plt Count 274 X10^3/uL (150.0-450.0) 02/26/21 04:25 MPV 7.7 fL (7.4-11.0) 02/26/21 04:25 Neut % (Auto) 73.1 % (42.0-75.0) 02/26/21 04:25 Lymph % (Auto) 16.4 % (21.0-51.0) L 02/26/21 04:25 [place] % (Auto) 7.5 % (0.0-13.0) 02/26/21 04:25 Eos % (Auto) 2.3 % (0.9-2.9) 02/26/21 04:25 Baso % (Auto) 0.7 % (0.2-1.0) 02/26/21 04:25 Neut # (Auto) 4.4 x10^3/uL (2.2-4.8) 02/26/21 04:25 Lymph # (Auto) 1.0 X10^3/uL (1.3-2.9) L 02/26/21 04:25 [place] # (Auto) 0.5 x10^3/uL (0.3-0.8) 02/26/21 04:25 Eos # (Auto) 0.1 x10^3/uL (0.0-0.2) 02/26/21 04:25 Baso # (Auto) 0.0 X10^3/uL (0.0-0.1) 02/26/21 04:25 Absolute Nucleated RBC 0.0 /100WBC 02/26/21 04:25 Sodium 141 mmol/L (136-145) 02/26/21 04:25 Corrected Sodium 141 mmol/L (136-145) 02/26/21 04:25 Potassium 3.9 mmol/L (3.5-5.1) 02/26/21 04:25 Chloride 105 mmol/L (98-107) 02/26/21 04:25 Carbon Dioxide 28.9 mmol/L (21-32) 02/26/21 04:25 BUN 10 mg/dL (7-18) 02/26/21 04:25 Creatinine 0.91 mg/dL (0.55-1.02) 02/26/21 04:25 Est GFR (MDRD) Af Amer > 60 (>60) 02/26/21 04:25 Est GFR (MDRD) Non-Af > 60 (>60) 02/26/21 04:25 Glucose 112 mg/dL (65-99) H 02/26/21 04:25 Calcium 8.5 mg/dL (8.5-10.1) 02/26/21 04:25 Corrected Calcium 9.6 mg/dL (8.5-10.1) 02/26/21 04:25 Total Bilirubin 0.40 mg/dL (0.2-1.0) 02/26/21 04:25 AST 8 Units/L (15-37) L 02/26/21 04:25 ALT 11 Units/L (12-78) L 02/26/21 04:25 Alkaline Phosphatase 86 Units/L (46-116) 02/26/21 04:25 Total Protein 6.7 g/dL (6.4-8.2) 02/26/21 04:25 Albumin 2.6 g/dL (3.4-5.0) L 02/26/21 04:25 Globulin 4.1 g/dL (2.5-4.5) 02/26/21 04:25 Albumin/Globulin Ratio 0.6 Ratio (1.1-2.1) L 02/26/21 04:25 SARS CoV-2 RNA Rapid JADIEL Negative (NEGATIVE) 02/24/21 08:21 Plan (1) Decubitus ulcer of left leg: Status: Acute Plan: S/p skin graft by general surgery IV antibiotics, Wound culture gram negative rods
[2021-02-26] MEDS ORDERED: PERCOCET TAB 5/325 MG ONE (16:08)
[2021-02-26] MEDS: PERCOCET TAB 5/325 MG PO PRN ×2 (16:12→21:37)
[2021-02-27] MEDS: PERCOCET TAB 5/325 MG PO PRN ×3 (03:48→20:21)
[2021-02-27] MEDS: FLAGYL IV PREMIX 500 MG BAG 500 MG/100 ML BAG IV SCH ×3 (05:31→21:08)
[2021-02-27] MEDS: ANCEF VIAL 1 GRAM IVP SCH (05:31)
[2021-02-27] MEDS: NS 1000 ML 1,000 ML IV SCH ×3 (05:32→21:56)
[2021-02-27 06:22] LABS: BASOPHILS % (AUTO) 0.8 % (0.2-1.0); EOSINOPHILS # (AUTO) 0.2 x10^3/uL (0.0-0.2); EOSINOPHILS % (AUTO) 3.9 % (0.9-2.9); HEMATOCRIT 30.4 % (36.0-47.0); HEMOGLOBIN 9.7 g/dL (12.0-16.0); LYMPHOCYTES # (AUTO) 0.8 X10^3/uL (1.3-2.9); LYMPHOCYTES % (AUTO) 20.6 % (21.0-51.0); MEAN CORPUSCULAR HEMOGLOBIN 26.7 pg (27.0-34.0); MEAN CORPUSCULAR VOLUME 83.3 fL (80.0-100.0); MEAN PLATELET VOLUME 7.2 fL (7.4-11.0); MONOCYTES # (AUTO) 0.5 x10^3/uL (0.3-0.8); MONOCYTES % (AUTO) 12.1 % (0.0-13.0); NEUTROPHILS # (AUTO) 2.5 x10^3/uL (2.2-4.8); NEUTROPHILS % (AUTO) 62.6 % (42.0-75.0); PLATELET COUNT 250 X10^3/uL (150.0-450.0); RED BLOOD COUNT 3.65 X10^6/uL (3.5-5.4); RED CELL DISTRIBUTION WIDTH 16.6 % (11.6-16.5)
[2021-02-27 06:40] LABS: ALANINE AMINOTRANSFERASE 8 Units/L (12-78); ALBUMIN 2.3 g/dL (3.4-5.0); ALKALINE PHOSPHATASE 80 Units/L (46-116); ASPARTATE AMINO TRANSFERASE 13 Units/L (15-37); BLOOD UREA NITROGEN 16 mg/dL (7-18); CALCIUM 8.2 mg/dL (8.5-10.1); CARBON DIOXIDE 28.1 mmol/L (21-32); CHLORIDE 106 mmol/L (98-107); COR CA(FOR HYPOALB) 9.6 mg/dL (8.5-10.1); CREATININE 1.04 mg/dL (0.55-1.02); SODIUM 141 mmol/L (136-145); TOTAL PROTEIN 6.2 g/dL (6.4-8.2); eGFR NON BLACK RACES 57 (>60)
[2021-02-27] MEDS ORDERED: ZESTRIL TAB 20 MG ONE (07:55)
[2021-02-27] MEDS: ZOFRAN INJ 4 MG VIAL IVP PRN (08:30)
[2021-02-27] MEDS: LOVENOX INJ 40 MG SYR SC SCH (09:42)
[2021-02-27] MEDS: MOBIC TAB 15 MG PO SCH ×2 (09:44→20:21)
[2021-02-27] MEDS: LASIX PO SCH (09:44)
[2021-02-27] MEDS: NEURONTIN TAB 600 MG PO SCH (09:45)
[2021-02-27] MEDS: PROTONIX TAB 40 MG PO SCH (09:46)
[2021-02-27] MEDS: FLEXERIL TAB 10 MG PO SCH ×2 (09:46→20:18)
[2021-02-27] MEDS: PEPCID TAB 40 MG PO SCH (09:47)
[2021-02-27] MEDS: MICRO K EXTEN CAP 10 MEQ PO SCH (09:47)
[2021-02-27] MEDS: ZESTRIL TAB 20 MG PO SCH (09:48)
--- NOTE | 2021-02-27 10:36 | PCM.PROG ---
Progress Note - Progress Note for Day of Date of Exam: 02/27/21 - Subjective Subjective: IS A 60 YEAR OLD PATIENT OF WHO WAS ADMITTED FOR TREATEMENT OF LEFT LOWER LEG DECUBITUS ULCER. SHE IS DAY 2 STATUS POST SPLIT THICKNESS SKIN GRAFT. WOUND WAS DEBRIDED AND CLEANSED PRIOR TO SKIN GRAFT. HER PMH INCLUDES HTN, ASTHMA, ARTHRITIS, CHRONIC VENOUS STASIS OF LOWER EXTREMITIES. SHE IS DOING WELL POST-PROCEDURE. SHE IS ALERT AND ORIENTED ON MORNING ROUNDS. SHE REPORTS MILD PAIN OF THE LEFT LOWER EXTREMITY. DRESSING TO LEFT LEG IS DRY AND INTACT. HER VITALS THIS MORNING ARE: 97.7-68-20-98%-148/92. LABS WERE OBTAINED. ABNORMAL LAB VALUES INCLUDE THE FOLLOWING: HGB 9.7, HCT 30.4, CREATININE 1.04, GLUCOSE 104, CALCIUM 8.2, AST 13, ALT 8, TOTAL PROTEIN 6.2, ALBUMIN 2.3. LEFT LEG WOUND CULTURE REPORTS GROWTH OF PSEUDOMONAS AERUGINOSA. IT IS NOT SENSITIVE TO HER CURRENT ANTIBIOTICS OF ANCEF. SHE IS CURRENTLY RECEIVING NORMAL SALINE AT [facility], ANCEF 1G IV Q8H, FLAGYL 500MG IV Q8H, LOVENOX 40MG SC DAILY, ZOFRAN 4MG IV Q4H PRN, TRAMADOL 50MG PO Q6H PRN, AND HER HOME MEDICATIONS WERE RESUMED. TODAY, WE WILL DISCONTINUE THE ANCEF AND START MEROPENEM 1G IV Q8H. WE WILL CONTINUE WITH CURRENT PLAN OF CARE TODAY. GENERAL SURGERY WILL CONTINUE TO FOLLOW. OTHERWISE, WE WILL FOLLOW UP WITH AM LABS AND CONTINUE TO MONITOR. TIME SPENT ON CLINICAL ASSESSMENT, REVIEWING LABS AND IMAGING, DECISION MAKING, AND DOCUMENTATION GREATER THAN 45 MINUTES. - Past Medical Family Social History Past Med/Fam/Surg Hx: No changes since H&P Allergies: Allergies acetaminophen [From Darvocet-N] Allergy (Verified 02/09/21 15:42) iodine Allergy (Verified 02/09/21 15:42) propoxyphene [From Darvocet-N] Allergy (Verified 02/09/21 15:42) - Review of Systems ROS: No change since H&P - Vital Signs and I&O's Vital Signs: Temperature 97.7 F Pulse Rate [Right] 68 Pulse Rate [Left] 78 Pulse Rate 72 Respiratory Rate 20 Blood Pressure [Right Arm] 148/92 Blood Pressure [Left Arm] 112/70 Blood Pressure 128/70 O2 Sat by Pulse Oximetry 98 Intake and Output: Intake & Output 02/24/21 02/25/21 02/26/21 02/27/21 11:59 11:59 11:59 11:59 Intake Total 2488 / 2488 1246 / 1246 2098 Output Total 150 / 150 10 / 10 Balance 2338 / 2338 1236 / 1236 2098 - Physical Exam Oriented: Normal Eyes: Normal Ear: Normal Nose: Normal Throat: Normal Respiratory: Normal Cardiovascular: Normal : Normal Auscultation: Bowel Sounds: Normal Palpation: Normal Tenderness: Normal Skin: Wound (dressing on graft site is intact) Musculoskeletal: Normal Psychiatric: Normal Mood Description: Anxious Affect: Normal Speech Pattern: Clear, Appropriate - Laboratory and Diagnostics Result Diagrams: 02/27/21 06:05 02/27/21 06:05 Labs: 02/24/21 09:58 Leg - Left Wound Gram Stain - Final 02/24/21 09:58 Leg - Left Wound Culture - Final Pseudomonas Aeruginosa Laboratory WBC 4.0 X10^3/uL (3.6-10.0) 02/27/21 06:05 RBC 3.65 X10^6/uL (3.5-5.4) 02/27/21 06:05 Hgb 9.7 g/dL (12.0-16.0) L 02/27/21 06:05 Hct 30.4 % (36.0-47.0) L 02/27/21 06:05 MCV 83.3 fL (80.0-100.0) 02/27/21 06:05 MCH 26.7 pg (27.0-34.0) L 02/27/21 06:05 MCHC 32.0 g/dL (33.0-35.0) L 02/27/21 06:05 RDW 16.6 % (11.6-16.5) H 02/27/21 06:05 Plt Count 250 X10^3/uL (150.0-450.0) 02/27/21 06:05 MPV 7.2 fL (7.4-11.0) L 02/27/21 06:05 Neut % (Auto) 62.6 % (42.0-75.0) 02/27/21 06:05 Lymph % (Auto) 20.6 % (21.0-51.0) L 02/27/21 06:05 [place] % (Auto) 12.1 % (0.0-13.0) 02/27/21 06:05 Eos % (Auto) 3.9 % (0.9-2.9) H 02/27/21 06:05 Baso % (Auto) 0.8 % (0.2-1.0) 02/27/21 06:05 Neut # (Auto) 2.5 x10^3/uL (2.2-4.8) 02/27/21 06:05 Lymph # (Auto) 0.8 X10^3/uL (1.3-2.9) L 02/27/21 06:05 [place] # (Auto) 0.5 x10^3/uL (0.3-0.8) 02/27/21 06:05 Eos # (Auto) 0.2 x10^3/uL (0.0-0.2) 02/27/21 06:05 Baso # (Auto) 0.0 X10^3/uL (0.0-0.1) 02/27/21 06:05 Absolute Nucleated RBC 0.0 /100WBC 02/27/21 06:05 Sodium 141 mmol/L (136-145) 02/27/21 06:05 Corrected Sodium TNP 02/27/21 06:05 Potassium 4.6 mmol/L (3.5-5.1) 02/27/21 06:05 Chloride 106 mmol/L (98-107) 02/27/21 06:05 Carbon Dioxide 28.1 mmol/L (21-32) 02/27/21 06:05 BUN 16 mg/dL (7-18) 02/27/21 06:05 Creatinine 1.04 mg/dL (0.55-1.02) H 02/27/21 06:05 Est GFR (MDRD) Af Amer > 60 (>60) 02/27/21 06:05 Est GFR (MDRD) Non-Af 57 (>60) L 02/27/21 06:05 Glucose 104 mg/dL (65-99) H 02/27/21 06:05 Calcium 8.2 mg/dL (8.5-10.1) L 02/27/21 06:05 Corrected Calcium 9.6 mg/dL (8.5-10.1) 02/27/21 06:05 Total Bilirubin 0.30 mg/dL (0.2-1.0) 02/27/21 06:05 AST 13 Units/L (15-37) L 02/27/21 06:05 ALT 8 Units/L (12-78) L 02/27/21 06:05 Alkaline Phosphatase 80 Units/L (46-116) 02/27/21 06:05 Total Protein 6.2 g/dL (6.4-8.2) L 02/27/21 06:05 Albumin 2.3 g/dL (3.4-5.0) L 02/27/21 06:05 Globulin 3.9 g/dL (2.5-4.5) 02/27/21 06:05 Albumin/Globulin Ratio 0.6 Ratio (1.1-2.1) L 02/27/21 06:05 SARS CoV-2 RNA Rapid JADIEL Negative (NEGATIVE) 02/24/21 08:21 - Plan (1) Decubitus ulcer of left leg Status: Acute Plan: S/p skin graft by general surgery. IV MEROPENEM
[2021-02-27] MEDS: MERREM VIAL 1 G in NS 100 ML IV + SPIKE MINIBAG* 100 ML IV SCH ×2 (14:57→21:30)
--- NOTE | 2021-02-27 19:43 | DR.PROGNOT ---
Hospital Progress Notes - Progress Note for Day of: Progress Note Date: 02/27/21 - Chief Complaint Chief Complaint: comfortable with moderate pain Lt leg .mild drainage from RT thigh donor site . CBC, Lytes , BUN/Creatinine are normal . dressing on the donor site was removed , Xeroform was kept on place . - Past Medical Family Social History Past Med/Fam/Surg Hx: No changes since H&P Allergies: Allergies acetaminophen [From Darvocet-N] Allergy (Verified 02/09/21 15:42) iodine Allergy (Verified 02/09/21 15:42) propoxyphene [From Darvocet-N] Allergy (Verified 02/09/21 15:42) - Review Of Systems ROS: No change since H&P - Vital Signs Vital Signs: Temperature 98.5 F Pulse Rate [Right] 74 Pulse Rate [Left] 78 Pulse Rate 72 Respiratory Rate 20 Blood Pressure [Right Arm] 150/83 Blood Pressure [Left Arm] 112/70 Blood Pressure 128/70 O2 Sat by Pulse Oximetry 97 - Physical Exam Oriented: Normal Eyes: Normal Ear: Normal Nose: Normal Throat: Normal Respiratory: Normal Cardiovascular: Normal : Normal GI:Auscultation: Normal GI:Palpation: Normal GI: Tenderness: Normal Skin: Wound (dressing on graft site is intact) Musculoskeletal: Normal Psychiatric: Normal Mood Description: Anxious Affect: Normal Speech Pattern: Clear, Appropriate - Laboratory and Diagnostics Result Diagrams: 02/27/21 06:05 02/27/21 06:05 Labs: 02/24/21 09:58 Leg - Left Wound Gram Stain - Final 02/24/21 09:58 Leg - Left Wound Culture - Final Pseudomonas Aeruginosa Laboratory WBC 4.0 X10^3/uL (3.6-10.0) 02/27/21 06:05 RBC 3.65 X10^6/uL (3.5-5.4) 02/27/21 06:05 Hgb 9.7 g/dL (12.0-16.0) L 02/27/21 06:05 Hct 30.4 % (36.0-47.0) L 02/27/21 06:05 MCV 83.3 fL (80.0-100.0) 02/27/21 06:05 MCH 26.7 pg (27.0-34.0) L 02/27/21 06:05 MCHC 32.0 g/dL (33.0-35.0) L 02/27/21 06:05 RDW 16.6 % (11.6-16.5) H 02/27/21 06:05 Plt Count 250 X10^3/uL (150.0-450.0) 02/27/21 06:05 MPV 7.2 fL (7.4-11.0) L 02/27/21 06:05 Neut % (Auto) 62.6 % (42.0-75.0) 02/27/21 06:05 Lymph % (Auto) 20.6 % (21.0-51.0) L 02/27/21 06:05 [place] % (Auto) 12.1 % (0.0-13.0) 02/27/21 06:05 Eos % (Auto) 3.9 % (0.9-2.9) H 02/27/21 06:05 Baso % (Auto) 0.8 % (0.2-1.0) 02/27/21 06:05 Neut # (Auto) 2.5 x10^3/uL (2.2-4.8) 02/27/21 06:05 Lymph # (Auto) 0.8 X10^3/uL (1.3-2.9) L 02/27/21 06:05 [place] # (Auto) 0.5 x10^3/uL (0.3-0.8) 02/27/21 06:05 Eos # (Auto) 0.2 x10^3/uL (0.0-0.2) 02/27/21 06:05 Baso # (Auto) 0.0 X10^3/uL (0.0-0.1) 02/27/21 06:05 Absolute Nucleated RBC 0.0 /100WBC 02/27/21 06:05 Sodium 141 mmol/L (136-145) 02/27/21 06:05 Corrected Sodium TNP 02/27/21 06:05 Potassium 4.6 mmol/L (3.5-5.1) 02/27/21 06:05 Chloride 106 mmol/L (98-107) 02/27/21 06:05 Carbon Dioxide 28.1 mmol/L (21-32) 02/27/21 06:05 BUN 16 mg/dL (7-18) 02/27/21 06:05 Creatinine 1.04 mg/dL (0.55-1.02) H 02/27/21 06:05 Est GFR (MDRD) Af Amer > 60 (>60) 02/27/21 06:05 Est GFR (MDRD) Non-Af 57 (>60) L 02/27/21 06:05 Glucose 104 mg/dL (65-99) H 02/27/21 06:05 Calcium 8.2 mg/dL (8.5-10.1) L 02/27/21 06:05 Corrected Calcium 9.6 mg/dL (8.5-10.1) 02/27/21 06:05 Total Bilirubin 0.30 mg/dL (0.2-1.0) 02/27/21 06:05 AST 13 Units/L (15-37) L 02/27/21 06:05 ALT 8 Units/L (12-78) L 02/27/21 06:05 Alkaline Phosphatase 80 Units/L (46-116) 02/27/21 06:05 Total Protein 6.2 g/dL (6.4-8.2) L 02/27/21 06:05 Albumin 2.3 g/dL (3.4-5.0) L 02/27/21 06:05 Globulin 3.9 g/dL (2.5-4.5) 02/27/21 06:05 Albumin/Globulin Ratio 0.6 Ratio (1.1-2.1) L 02/27/21 06:05 SARS CoV-2 RNA Rapid JADIEL Negative (NEGATIVE) 02/24/21 08:21 - Assessment and Plan 1: chronic Lt leg ulcer . s/p split thickness skin graft .day 2. same IV ATB . leg elevation , DVT prophylaxis . may ambulate to bathroom with assistance . to keep dressing intact for one week . - Problem Patient Problems: Patient Problems Decubitus ulcer of left leg (Acute) L89.432
[2021-02-28 05:06] LABS: BASOPHILS % (AUTO) 0.6 % (0.2-1.0); EOSINOPHILS # (AUTO) 0.1 x10^3/uL (0.0-0.2); EOSINOPHILS % (AUTO) 3.4 % (0.9-2.9); HEMATOCRIT 29.9 % (36.0-47.0); HEMOGLOBIN 9.5 g/dL (12.0-16.0); MEAN CORPUSCULAR HEMOGLOBIN 26.7 pg (27.0-34.0); MEAN CORPUSCULAR HGB CONC 31.7 g/dL (33.0-35.0); MEAN CORPUSCULAR VOLUME 84.2 fL (80.0-100.0); MEAN PLATELET VOLUME 7.4 fL (7.4-11.0); MONOCYTES # (AUTO) 0.5 x10^3/uL (0.3-0.8); MONOCYTES % (AUTO) 12.1 % (0.0-13.0); NEUTROPHILS # (AUTO) 2.7 x10^3/uL (2.2-4.8); NEUTROPHILS % (AUTO) 61.9 % (42.0-75.0); PLATELET COUNT 261 X10^3/uL (150.0-450.0); RED BLOOD COUNT 3.55 X10^6/uL (3.5-5.4); RED CELL DISTRIBUTION WIDTH 16.5 % (11.6-16.5); WHITE BLOOD COUNT 4.4 X10^3/uL (3.6-10.0)
[2021-02-28 05:19] LABS: ALANINE AMINOTRANSFERASE 10 Units/L (12-78); ALBUMIN 2.2 g/dL (3.4-5.0); ALKALINE PHOSPHATASE 77 Units/L (46-116); ASPARTATE AMINO TRANSFERASE 22 Units/L (15-37); BLOOD UREA NITROGEN 16 mg/dL (7-18); CALCIUM 8.5 mg/dL (8.5-10.1); CARBON DIOXIDE 30.4 mmol/L (21-32); CHLORIDE 105 mmol/L (98-107); COR CA(FOR HYPOALB) 9.9 mg/dL (8.5-10.1); SODIUM 140 mmol/L (136-145); eGFR NON BLACK RACES > 60 (>60)
[2021-02-28] MEDS: FLAGYL IV PREMIX 500 MG BAG 500 MG/100 ML BAG IV SCH ×3 (05:20→21:01)
[2021-02-28] MEDS: PERCOCET TAB 5/325 MG PO PRN ×3 (05:21→19:41)
[2021-02-28] MEDS: MERREM VIAL 1 G in NS 100 ML IV + SPIKE MINIBAG* 100 ML IV SCH ×3 (06:31→22:06)
[2021-02-28] MEDS: ZOFRAN INJ 4 MG VIAL IVP PRN (08:03)
[2021-02-28] MEDS ORDERED: ZESTRIL TAB 20 MG ONE (08:59)
[2021-02-28] MEDS: FLEXERIL TAB 10 MG PO SCH ×2 (09:14→20:11)
[2021-02-28] MEDS: PEPCID TAB 40 MG PO SCH (09:15)
[2021-02-28] MEDS: LASIX PO SCH (09:15)
[2021-02-28] MEDS: MICRO K EXTEN CAP 10 MEQ PO SCH (09:16)
[2021-02-28] MEDS: MOBIC TAB 15 MG PO SCH ×2 (09:17→20:11)
[2021-02-28] MEDS: PROTONIX TAB 40 MG PO SCH (09:17)
[2021-02-28] MEDS: ZESTRIL TAB 20 MG PO SCH (09:17)
[2021-02-28] MEDS: NEURONTIN TAB 600 MG PO SCH (09:18)
[2021-02-28] MEDS: LOVENOX INJ 40 MG SYR SC SCH (09:18)
--- NOTE | 2021-02-28 11:59 | DR.PROGNOT ---
Hospital Progress Notes - Progress Note for Day of: Progress Note Date: 02/28/21 - Chief Complaint Chief Complaint: comfortable with moderate pain Lt leg .mild drainage from RT thigh donor site .CBC, Lytes , BUN/Creatinine are normal . dressing on the donor site was removed and a new Xeroform was applied . Lt leg dressing was kept intact .. - Past Medical Family Social History Past Med/Fam/Surg Hx: No changes since H&P Allergies: Allergies acetaminophen [From Darvocet-N] Allergy (Verified 02/09/21 15:42) iodine Allergy (Verified 02/09/21 15:42) propoxyphene [From Darvocet-N] Allergy (Verified 02/09/21 15:42) - Review Of Systems ROS: No change since H&P - Vital Signs Vital Signs: Temperature 98.7 F Pulse Rate [Right] 66 Pulse Rate [Left] 78 Pulse Rate 67 Respiratory Rate 20 Blood Pressure [Right Arm] 140/73 Blood Pressure [Left Arm] 112/70 Blood Pressure 128/70 O2 Sat by Pulse Oximetry 98 - Physical Exam Oriented: Normal Eyes: Normal Ear: Normal Nose: Normal Throat: Normal Respiratory: Normal Cardiovascular: Normal : Normal GI:Auscultation: Normal GI:Palpation: Normal GI: Tenderness: Normal Skin: Wound (dressing on graft site is intact) Musculoskeletal: Normal Psychiatric: Normal Mood Description: Anxious Affect: Normal Speech Pattern: Clear, Appropriate - Laboratory and Diagnostics Result Diagrams: 02/28/21 04:30 02/28/21 04:30 Labs: 02/24/21 09:58 Leg - Left Wound Gram Stain - Final 02/24/21 09:58 Leg - Left Wound Culture - Final Pseudomonas Aeruginosa Laboratory WBC 4.4 X10^3/uL (3.6-10.0) 02/28/21 04:30 RBC 3.55 X10^6/uL (3.5-5.4) 02/28/21 04:30 Hgb 9.5 g/dL (12.0-16.0) L 02/28/21 04:30 Hct 29.9 % (36.0-47.0) L 02/28/21 04:30 MCV 84.2 fL (80.0-100.0) 02/28/21 04:30 MCH 26.7 pg (27.0-34.0) L 02/28/21 04:30 MCHC 31.7 g/dL (33.0-35.0) L 02/28/21 04:30 RDW 16.5 % (11.6-16.5) 02/28/21 04:30 Plt Count 261 X10^3/uL (150.0-450.0) 02/28/21 04:30 MPV 7.4 fL (7.4-11.0) 02/28/21 04:30 Neut % (Auto) 61.9 % (42.0-75.0) 02/28/21 04:30 Lymph % (Auto) 22.0 % (21.0-51.0) 02/28/21 04:30 [place] % (Auto) 12.1 % (0.0-13.0) 02/28/21 04:30 Eos % (Auto) 3.4 % (0.9-2.9) H 02/28/21 04:30 Baso % (Auto) 0.6 % (0.2-1.0) 02/28/21 04:30 Neut # (Auto) 2.7 x10^3/uL (2.2-4.8) 02/28/21 04:30 Lymph # (Auto) 1.0 X10^3/uL (1.3-2.9) L 02/28/21 04:30 [place] # (Auto) 0.5 x10^3/uL (0.3-0.8) 02/28/21 04:30 Eos # (Auto) 0.1 x10^3/uL (0.0-0.2) 02/28/21 04:30 Baso # (Auto) 0.0 X10^3/uL (0.0-0.1) 02/28/21 04:30 Absolute Nucleated RBC 0.0 /100WBC 02/28/21 04:30 Sodium 140 mmol/L (136-145) 02/28/21 04:30 Corrected Sodium TNP 02/28/21 04:30 Potassium 4.3 mmol/L (3.5-5.1) 02/28/21 04:30 Chloride 105 mmol/L (98-107) 02/28/21 04:30 Carbon Dioxide 30.4 mmol/L (21-32) 02/28/21 04:30 BUN 16 mg/dL (7-18) 02/28/21 04:30 Creatinine 1.00 mg/dL (0.55-1.02) 02/28/21 04:30 Est GFR (MDRD) Af Amer > 60 (>60) 02/28/21 04:30 Est GFR (MDRD) Non-Af > 60 (>60) 02/28/21 04:30 Glucose 93 mg/dL (65-99) 02/28/21 04:30 Calcium 8.5 mg/dL (8.5-10.1) 02/28/21 04:30 Corrected Calcium 9.9 mg/dL (8.5-10.1) 02/28/21 04:30 Total Bilirubin 0.30 mg/dL (0.2-1.0) 02/28/21 04:30 AST 22 Units/L (15-37) 02/28/21 04:30 ALT 10 Units/L (12-78) L 02/28/21 04:30 Alkaline Phosphatase 77 Units/L (46-116) 02/28/21 04:30 Total Protein 6.0 g/dL (6.4-8.2) L 02/28/21 04:30 Albumin 2.2 g/dL (3.4-5.0) L 02/28/21 04:30 Globulin 3.8 g/dL (2.5-4.5) 02/28/21 04:30 Albumin/Globulin Ratio 0.6 Ratio (1.1-2.1) L 02/28/21 04:30 SARS CoV-2 RNA Rapid JADIEL Negative (NEGATIVE) 02/24/21 08:21 - Assessment and Plan 1: chronic Lt leg ulcer . s/p split thickness skin graft .day 3. same IV ATB . leg elevation , DVT prophylaxis . may ambulate to bathroom with assistance . to keep dressing intact for one week. arrange for visiting nurse - Problem Patient Problems: Patient Problems Decubitus ulcer of left leg (Acute) L89.128
[2021-02-28] MEDS: NS 1000 ML 1,000 ML IV SCH (19:42)
--- NOTE | 2021-02-28 21:01 | PCM.PROG ---
Progress Note - Progress Note for Day of Date of Exam: 02/28/21 - Subjective Subjective: IS A 60 YEAR OLD PATIENT OF WHO WAS ADMITTED FOR TREATMENT OF LEFT LOWER LEG DECUBITUS ULCER. SHE IS DAY 3 STATUS POST SPLIT THICKNESS SKIN GRAFT. WOUND WAS DEBRIDED AND CLEANSED PRIOR TO SKIN GRAFT. HER PMH INCLUDES HTN, ASTHMA, ARTHRITIS, CHRONIC VENOUS STASIS OF LOWER EXTREMITIES. SHE IS DOING WELL POST-PROCEDURE. SHE IS ALERT AND ORIENTED ON MORNING ROUNDS. SHE REPORTS MILD PAIN OF THE LEFT LOWER EXTREMITY. DRESSING TO LEFT LEG IS DRY AND INTACT. HER VITALS THIS MORNING ARE: 98.7-66-20-96%-140/73. LABS WERE OBTAINED. ABNORMAL LAB VALUES INCLUDE THE FOLLOWING: HGB 9.5, HCT 29.9, ALT 10, TOTAL PROTEIN 6.0, ALBUMIN 2.2. LEFT LEG WOUND CULTURE REPORTS GROWTH OF P SEUDOMONAS AERUGINOSA. SHE IS CURRENTLY RECEIVING NORMAL SALINE AT [facility], MEROPENEM 1G IV Q8H, FLAGYL 500MG IV Q8H, LOVENOX 40MG SC DAILY, ZOFRAN 4MG IV Q4H PRN, TRAMADOL 50MG PO Q6H PRN, AND HER HOME MEDICATIONS WERE RESUMED. WE WILL CONTINUE WITH CURRENT PLAN OF CARE TODAY. GENERAL SURGERY WILL CONTINUE TO FOLLOW. OTHERWISE, WE WILL FOLLOW UP WITH AM LABS AND CONTINUE TO MONITOR. TIME SPENT ON CLINICAL ASSESSMENT, REVIEWING LABS AND IMAGING, DECISION MAKING, AND DOCUMENTATION GREATER THAN 45 MINUTES. - Past Medical Family Social History Past Med/Fam/Surg Hx: No changes since H&P Allergies: Allergies acetaminophen [From Darvocet-N] Allergy (Verified 02/09/21 15:42) iodine Allergy (Verified 02/09/21 15:42) propoxyphene [From Darvocet-N] Allergy (Verified 02/09/21 15:42) - Review of Systems ROS: No change since H&P - Vital Signs and I&O's Vital Signs: Temperature 98.3 F Pulse Rate [Right] 76 Pulse Rate [Left] 78 Pulse Rate 67 Respiratory Rate 20 Blood Pressure [Right Arm] 121/73 Blood Pressure [Left Arm] 112/70 Blood Pressure 128/70 O2 Sat by Pulse Oximetry 98 Intake and Output: Intake & Output 02/26/21 02/27/21 02/28/21 03/01/21 11:59 11:59 11:59 11:59 Intake Total 1246 / 1246 2098 / 2098 4961 / 4961 1000 / 1000 Output Total Balance 1236 / 1236 2098 4961 / 4961 1000 / 1000 - Physical Exam Oriented: Normal Eyes: Normal Ear: Normal Nose: Normal Throat: Normal Respiratory: Normal Cardiovascular: Normal : Normal Auscultation: Bowel Sounds: Normal Tenderness: Normal Skin: Wound (dressing on graft site is intact) Musculoskeletal: Normal Psychiatric: Normal Mood Description: Anxious Affect: Normal Speech Pattern: Clear, Appropriate - Laboratory and Diagnostics Result Diagrams: 02/28/21 04:30 02/28/21 04:30 Labs: 02/24/21 09:58 Leg - Left Wound Gram Stain - Final 02/24/21 09:58 Leg - Left Wound Culture - Final Pseudomonas Aeruginosa Laboratory WBC 4.4 X10^3/uL (3.6-10.0) 02/28/21 04:30 RBC 3.55 X10^6/uL (3.5-5.4) 02/28/21 04:30 Hgb 9.5 g/dL (12.0-16.0) L 02/28/21 04:30 Hct 29.9 % (36.0-47.0) L 02/28/21 04:30 MCV 84.2 fL (80.0-100.0) 02/28/21 04:30 MCH 26.7 pg (27.0-34.0) L 02/28/21 04:30 MCHC 31.7 g/dL (33.0-35.0) L 02/28/21 04:30 RDW 16.5 % (11.6-16.5) 02/28/21 04:30 Plt Count 261 X10^3/uL (150.0-450.0) 02/28/21 04:30 MPV 7.4 fL (7.4-11.0) 02/28/21 04:30 Neut % (Auto) 61.9 % (42.0-75.0) 02/28/21 04:30 Lymph % (Auto) 22.0 % (21.0-51.0) 02/28/21 04:30 [place] % (Auto) 12.1 % (0.0-13.0) 02/28/21 04:30 Eos % (Auto) 3.4 % (0.9-2.9) H 02/28/21 04:30 Baso % (Auto) 0.6 % (0.2-1.0) 02/28/21 04:30 Neut # (Auto) 2.7 x10^3/uL (2.2-4.8) 02/28/21 04:30 Lymph # (Auto) 1.0 X10^3/uL (1.3-2.9) L 02/28/21 04:30 [place] # (Auto) 0.5 x10^3/uL (0.3-0.8) 02/28/21 04:30 Eos # (Auto) 0.1 x10^3/uL (0.0-0.2) 02/28/21 04:30 Baso # (Auto) 0.0 X10^3/uL (0.0-0.1) 02/28/21 04:30 Absolute Nucleated RBC 0.0 /100WBC 02/28/21 04:30 Sodium 140 mmol/L (136-145) 02/28/21 04:30 Corrected Sodium TNP 02/28/21 04:30 Potassium 4.3 mmol/L (3.5-5.1) 02/28/21 04:30 Chloride 105 mmol/L (98-107) 02/28/21 04:30 Carbon Dioxide 30.4 mmol/L (21-32) 02/28/21 04:30 BUN 16 mg/dL (7-18) 02/28/21 04:30 Creatinine 1.00 mg/dL (0.55-1.02) 02/28/21 04:30 Est GFR (MDRD) Af Amer > 60 (>60) 02/28/21 04:30 Est GFR (MDRD) Non-Af > 60 (>60) 02/28/21 04:30 Glucose 93 mg/dL (65-99) 02/28/21 04:30 Calcium 8.5 mg/dL (8.5-10.1) 02/28/21 04:30 Corrected Calcium 9.9 mg/dL (8.5-10.1) 02/28/21 04:30 Total Bilirubin 0.30 mg/dL (0.2-1.0) 02/28/21 04:30 AST 22 Units/L (15-37) 02/28/21 04:30 ALT 10 Units/L (12-78) L 02/28/21 04:30 Alkaline Phosphatase 77 Units/L (46-116) 02/28/21 04:30 Total Protein 6.0 g/dL (6.4-8.2) L 02/28/21 04:30 Albumin 2.2 g/dL (3.4-5.0) L 02/28/21 04:30 Globulin 3.8 g/dL (2.5-4.5) 02/28/21 04:30 Albumin/Globulin Ratio 0.6 Ratio (1.1-2.1) L 02/28/21 04:30 SARS CoV-2 RNA Rapid JADIEL Negative (NEGATIVE) 02/24/21 08:21 - Plan (1) Decubitus ulcer of left leg Status: Acute Plan: S/p skin graft by general surgery. IV MEROPENEM
[2021-03-01] MEDS: NS 1000 ML 1,000 ML IV SCH ×2 (00:53→15:39)
[2021-03-01] MEDS: PERCOCET TAB 5/325 MG PO PRN ×3 (00:53→11:57)
[2021-03-01 04:49] LABS: BASOPHILS % (AUTO) 0.8 % (0.2-1.0); EOSINOPHILS # (AUTO) 0.2 x10^3/uL (0.0-0.2); EOSINOPHILS % (AUTO) 3.6 % (0.9-2.9); HEMATOCRIT 30.1 % (36.0-47.0); HEMOGLOBIN 9.4 g/dL (12.0-16.0); LYMPHOCYTES # (AUTO) 1.1 X10^3/uL (1.3-2.9); LYMPHOCYTES % (AUTO) 24.8 % (21.0-51.0); MEAN CORPUSCULAR HEMOGLOBIN 26.3 pg (27.0-34.0); MEAN CORPUSCULAR HGB CONC 31.2 g/dL (33.0-35.0); MEAN CORPUSCULAR VOLUME 84.4 fL (80.0-100.0); MEAN PLATELET VOLUME 7.3 fL (7.4-11.0); MONOCYTES # (AUTO) 0.6 x10^3/uL (0.3-0.8); NEUTROPHILS # (AUTO) 2.5 x10^3/uL (2.2-4.8); NEUTROPHILS % (AUTO) 57.8 % (42.0-75.0); PLATELET COUNT 258 X10^3/uL (150.0-450.0); RED BLOOD COUNT 3.56 X10^6/uL (3.5-5.4); RED CELL DISTRIBUTION WIDTH 16.6 % (11.6-16.5); WHITE BLOOD COUNT 4.4 X10^3/uL (3.6-10.0)
[2021-03-01] MEDS: MERREM VIAL 1 G in NS 100 ML IV + SPIKE MINIBAG* 100 ML IV SCH ×2 (05:03→13:46)
[2021-03-01 05:05] LABS: ALANINE AMINOTRANSFERASE 16 Units/L (12-78); ALBUMIN 2.2 g/dL (3.4-5.0); ALKALINE PHOSPHATASE 72 Units/L (46-116); ASPARTATE AMINO TRANSFERASE 22 Units/L (15-37); BLOOD UREA NITROGEN 16 mg/dL (7-18); CALCIUM 8.5 mg/dL (8.5-10.1); CHLORIDE 106 mmol/L (98-107); COR CA(FOR HYPOALB) 9.9 mg/dL (8.5-10.1); CREATININE 1.01 mg/dL (0.55-1.02); SODIUM 142 mmol/L (136-145); TOTAL PROTEIN 5.9 g/dL (6.4-8.2); eGFR NON BLACK RACES 59 (>60)
[2021-03-01] MEDS: FLAGYL IV PREMIX 500 MG BAG 500 MG/100 ML BAG IV SCH ×2 (05:44→13:00)
[2021-03-01] MEDS ORDERED: ZESTRIL TAB 20 MG ONE (08:17)
[2021-03-01] MEDS: ZESTRIL TAB 20 MG PO SCH (09:04)
[2021-03-01] MEDS: MICRO K EXTEN CAP 10 MEQ PO SCH (09:05)
[2021-03-01] MEDS: PEPCID TAB 40 MG PO SCH (09:06)
[2021-03-01] MEDS: PROTONIX TAB 40 MG PO SCH (09:07)
[2021-03-01] MEDS: MOBIC TAB 15 MG PO SCH (09:07)
[2021-03-01] MEDS: FLEXERIL TAB 10 MG PO SCH (09:07)
[2021-03-01] MEDS: LASIX PO SCH (09:07)
[2021-03-01] MEDS: LOVENOX INJ 40 MG SYR SC SCH (09:08)
[2021-03-01] MEDS: NEURONTIN TAB 600 MG PO SCH (09:08)
--- NOTE | 2021-03-01 13:08 | W.DIS.FURT ---
Summary of Discharge Discharge Summary of Date Date of Exam: 03/01/21 Admission Date Date of Admission: 02/24/21 Admission Diagnosis Patient Problems (Updated 02/27/21 @ 10:36 by Jose Welsh) Decubitus ulcer of left leg (Acute) L89.899 Hospital Course: PT IS A 60 YEAR OLD FEMALE ADMITTED FOR TREATMENT OF LEFT LOWER LEG DECUBITUS ULCER. SHE WAS TREATED WITH IV ANTIBIOTICS AND HAD SPLIT THICKNESS SKIN GRAFT. WOUND WAS DEBRIDED AND CLEANSED PRIOR TO SKIN GRAFT. PT RECOVERED WELL POST PROCEDURE. LABS WERE OBTAINED: WBC 4.4, HGB 9.4, PLT 258, NA 142, K 4.6, CREATININE 1.01, GLUCOSE 95. LEFT LEG WOUND CULTURE REPORTS GROWTH OF PSEUDOMONAS AERUGINOSA. PT RECEIVED MEROPENEM 1G IV Q8H, FLAGYL 500MG IV Q8H, LOVENOX 40MG SC DAILY, ZOFRAN 4MG IV Q4H PRN, TRAMADOL 50MG PO Q6H PRN. PT WAS DISCHARGED IN STABLE CONDITION WITH INSTRUCTIONS TO FOLLOW UP WITH PCP AND GENERAL SURGERY IN 3-5 DAYS. Vital Signs: Vital Signs (72 hours) 02/26/21 16:00 02/26/21 16:12 02/26/21 17:12 Temperature 98.3 F Pulse Rate Pulse Rate [Right] 68 Respiratory Rate 18 20 20 Blood Pressure [Left Arm] Blood Pressure [Right Arm] 112/59 O2 Sat by Pulse Oximetry 99 02/26/21 20:00 02/26/21 21:37 02/26/21 22:37 Temperature 98.6 F Pulse Rate Pulse Rate [Right] 78 Respiratory Rate 20 18 18 Blood Pressure [Left Arm] Blood Pressure [Right Arm] 133/85 O2 Sat by Pulse Oximetry 96 02/27/21 00:00 02/27/21 03:48 02/27/21 04:00 Temperature 97.8 F 97.7 F Pulse Rate Pulse Rate [Right] 68 70 Respiratory Rate 20 18 20 Blood Pressure [Left Arm] Blood Pressure [Right Arm] 135/86 121/78 O2 Sat by Pulse Oximetry 97 99 02/27/21 04:48 02/27/21 08:00 02/27/21 12:00 Temperature 97.7 F 98.0 F Pulse Rate Pulse Rate [Right] 68 83 Respiratory Rate 18 20 20 Blood Pressure [Left Arm] Blood Pressure [Right Arm] 148/92 122/79 O2 Sat by Pulse Oximetry 98 100 02/27/21 14:56 02/27/21 15:56 02/27/21 16:00 Temperature 98.5 F Pulse Rate Pulse Rate [Right] 74 Respiratory Rate 20 20 20 Blood Pressure [Left Arm] Blood Pressure [Right Arm] 150/83 O2 Sat by Pulse Oximetry 97 02/27/21 16:56 02/27/21 20:00 02/27/21 20:10 Temperature 98.1 F Pulse Rate 75 Pulse Rate [Right] 74 Respiratory Rate 20 18 Blood Pressure [Left Arm] Blood Pressure [Right Arm] 125/77 O2 Sat by Pulse Oximetry 94 L 95 02/27/21 20:21 02/27/21 21:21 02/28/21 00:00 Temperature 98.1 F Pulse Rate Pulse Rate [Right] 64 Respiratory Rate 20 20 14 Blood Pressure [Left Arm] Blood Pressure [Right Arm] 106/64 O2 Sat by Pulse Oximetry 98 02/28/21 04:00 02/28/21 05:21 02/28/21 06:21 Temperature 97.8 F Pulse Rate Pulse Rate [Right] 59 L Respiratory Rate 16 16 20 Blood Pressure [Left Arm] Blood Pressure [Right Arm] 109/58 O2 Sat by Pulse Oximetry 99 02/28/21 08:00 02/28/21 08:38 02/28/21 12:00 Temperature 98.7 F 97.6 F Pulse Rate 67 Pulse Rate [Right] 66 71 Respiratory Rate 20 18 Blood Pressure [Left Arm] Blood Pressure [Right Arm] 140/73 128/66 O2 Sat by Pulse Oximetry 96 98 02/28/21 14:00 02/28/21 15:00 02/28/21 16:00 Temperature 98.5 F Pulse Rate Pulse Rate [Right] 82 Respiratory Rate 18 18 20 Blood Pressure [Left Arm] Blood Pressure [Right Arm] 115/65 O2 Sat by Pulse Oximetry 98 02/28/21 19:41 02/28/21 19:57 02/28/21 20:41 Temperature 98.3 F Pulse Rate Pulse Rate [Right] 76 Respiratory Rate 19 20 20 Blood Pressure [Left Arm] Blood Pressure [Right Arm] 121/73 O2 Sat by Pulse Oximetry 98 02/28/21 21:05 02/28/21 23:44 03/01/21 00:53 Temperature 98.0 F Pulse Rate 71 Pulse Rate [Right] 77 Respiratory Rate 20 16 Blood Pressure [Left Arm] 108/67 Blood Pressure [Right Arm] O2 Sat by Pulse Oximetry 97 97 03/01/21 01:53 03/01/21 03:42 03/01/21 05:03 Temperature 98.4 F Pulse Rate Pulse Rate [Right] 66 Respiratory Rate 20 20 18 Blood Pressure [Left Arm] 110/68 Blood Pressure [Right Arm] O2 Sat by Pulse Oximetry 94 L 03/01/21 06:03 03/01/21 08:00 03/01/21 11:57 Temperature 97.9 F Pulse Rate Pulse Rate [Right] 66 Respiratory Rate 20 18 20 Blood Pressure [Left Arm] 112/66 Blood Pressure [Right Arm] O2 Sat by Pulse Oximetry 99 Labs: Laboratory Last Values WBC 4.4 X10^3/uL (3.6-10.0) 03/01/21 04:25 RBC 3.56 X10^6/uL (3.5-5.4) 03/01/21 04:25 Hgb 9.4 g/dL (12.0-16.0) L 03/01/21 04:25 Hct 30.1 % (36.0-47.0) L 03/01/21 04:25 MCV 84.4 fL (80.0-100.0) 03/01/21 04:25 MCH 26.3 pg (27.0-34.0) L 03/01/21 04:25 MCHC 31.2 g/dL (33.0-35.0) L 03/01/21 04:25 RDW 16.6 % (11.6-16.5) H 03/01/21 04:25 Plt Count 258 X10^3/uL (150.0-450.0) 03/01/21 04:25 MPV 7.3 fL (7.4-11.0) L 03/01/21 04:25 Neut % (Auto) 57.8 % (42.0-75.0) 03/01/21 04:25 Lymph % (Auto) 24.8 % (21.0-51.0) 03/01/21 04:25 [place] % (Auto) 13.0 % (0.0-13.0) 03/01/21 04:25 Eos % (Auto) 3.6 % (0.9-2.9) H 03/01/21 04:25 Baso % (Auto) 0.8 % (0.2-1.0) 03/01/21 04:25 Neut # (Auto) 2.5 x10^3/uL (2.2-4.8) 03/01/21 04:25 Lymph # (Auto) 1.1 X10^3/uL (1.3-2.9) L 03/01/21 04:25 [place] # (Auto) 0.6 x10^3/uL (0.3-0.8) 03/01/21 04:25 Eos # (Auto) 0.2 x10^3/uL (0.0-0.2) 03/01/21 04:25 Baso # (Auto) 0.0 X10^3/uL (0.0-0.1) 03/01/21 04:25 Absolute Nucleated RBC 0.0 /100WBC 03/01/21 04:25 Sodium 142 mmol/L (136-145) 03/01/21 04:25 Corrected Sodium TNP 03/01/21 04:25 Potassium 4.6 mmol/L (3.5-5.1) 03/01/21 04:25 Chloride 106 mmol/L (98-107) 03/01/21 04:25 Carbon Dioxide 30.0 mmol/L (21-32) 03/01/21 04:25 BUN 16 mg/dL (7-18) 03/01/21 04:25 Creatinine 1.01 mg/dL (0.55-1.02) 03/01/21 04:25 Est GFR (MDRD) Af Amer > 60 (>60) 03/01/21 04:25 Est GFR (MDRD) Non-Af 59 (>60) 03/01/21 04:25 Glucose 95 mg/dL (65-99) 03/01/21 04:25 Calcium 8.5 mg/dL (8.5-10.1) 03/01/21 04:25 Corrected Calcium 9.9 mg/dL (8.5-10.1) 03/01/21 04:25 Total Bilirubin 0.20 mg/dL (0.2-1.0) 03/01/21 04:25 AST 22 Units/L (15-37) 03/01/21 04:25 ALT 16 Units/L (12-78) 03/01/21 04:25 Alkaline Phosphatase 72 Units/L (46-116) 03/01/21 04:25 Total Protein 5.9 g/dL (6.4-8.2) L 03/01/21 04:25 Albumin 2.2 g/dL (3.4-5.0) L 03/01/21 04:25 Globulin 3.7 g/dL (2.5-4.5) 03/01/21 04:25 Albumin/Globulin Ratio 0.6 Ratio (1.1-2.1) L 03/01/21 04:25 SARS CoV-2 RNA Rapid JADIEL Negative (NEGATIVE) 02/24/21 08:21 Reason For Visit: INFECTED LEFT LEG ULCER,FAILED OUTPT TREATMENT Discharge Date Discharge Date: 03/01/21 Discharge Diagnosis All Active Problems (Updated 02/27/21 @ 10:36 by Jose Welsh) Back pain (Acute) Hip pain, left (Acute) Cellulitis (Acute) Edema (Acute) Cellulitis of right lower leg (Acute) Cocaine abuse (Acute) Leg edema (Acute) Laceration of forehead (Acute) Laceration of ear, external, left (Acute) Low back pain (Acute) Cellulitis of left leg (Acute) Cellulitis of left leg (Acute) Edema (Acute) Leg wound, left (Acute) Decubitus ulcer of left leg (Acute) Cellulitis of left lower extremity (Acute) Acute renal failure (Acute) Hypokalemia (Acute) Dehydration (Acute) Acute hypotension (Acute) Contusion of hand (Active) Headache (Active) Asthmatic bronchitis (Acute) Acute sinusitis (Acute) Bronchitis (Acute) Asthma (Acute) Degenerative joint disease of knee, left (Acute) COPD (chronic obstructive pulmonary disease) (Acute) Knee pain (Acute) First degree burn (Acute) Leg pain, right (Acute) URI (upper respiratory infection) (Acute) Arthritis (Acute) Knee pain (Acute) Arthritis (Acute) DJD (degenerative joint disease) (Acute) Insect bite (Acute) Asthmatic bronchitis , chronic (Acute) Stasis ulcer (Acute) Chest wall contusion (Acute) Chronic joint pain (Acute) Contusion of knee, right (Acute) Neuropathic pain of right lower extremity (Acute) Hypokalemia (Acute) Cellulitis (Acute) Musculoskeletal leg pain (Acute) Periorbital edema (Acute) Edema of left orbit (Acute) Pedal edema (Acute) Back pain (Acute) Knee pain (Acute) Chronic lower back pain (Acute) Trichomonal cystitis (Acute) Insect bite (Acute) Leg pain, left (Acute) Contusion (Acute) Viral syndrome (Acute) Asthma attack (Acute) Influenza A (Acute) Osteoarthritis (Acute) Lumbar back pain (Acute) Acute dehydration (Acute) Acute hypotension (Acute) Acute hypokalemia (Acute) Rib pain on right side (Acute) Abdominal pain, acute, right upper quadrant (Acute) Plan of Treatment: Continue with present treatment and follow up plan. Pt is to keep follow up appointment as instructed and take medications as ordered. Discharge Medications Discharge Medications: acetaminophen [From Darvocet-N] Allergy (Verified 02/09/21 15:42) iodine Allergy (Verified 02/09/21 15:42) propoxyphene [From Darvocet-N] Allergy (Verified 02/09/21 15:42) Discharge Disposition Assessment: Stable no acute distress noted at time of discharge. Discharge Disposition: Home Discharge Condition: Stable Discharge Plan Discharge Plan Hospital Course: PT IS A 60 YEAR OLD FEMALE ADMITTED FOR TREATMENT OF LEFT LOWER LEG DECUBITUS ULCER. SHE WAS TREATED WITH IV ANTIBIOTICS AND HAD SPLIT THICKNESS SKIN GRAFT. WOUND WAS DEBRIDED AND CLEANSED PRIOR TO SKIN GRAFT. PT RECOVERED WELL POST PROCEDURE. LABS WERE OBTAINED: WBC 4.4, HGB 9.4, PLT 258, NA 142, K 4.6, CREATININE 1.01, GLUCOSE 95. LEFT LEG WOUND CULTURE REPORTS GROWTH OF PSEUDOMONAS AERUGINOSA. PT RECEIVED MEROPENEM 1G IV Q8H, FLAGYL 500MG IV Q8H, LOVENOX 40MG SC DAILY, ZOFRAN 4MG IV Q4H PRN, TRAMADOL 50MG PO Q6H PRN. PT WAS DISCHARGED IN STABLE CONDITION WITH INSTRUCTIONS TO FOLLOW UP WITH PCP AND GENERAL SURGERY IN 3-5 DAYS. Patient Disposition: 01 HOME, SELF-CARE Condition: Stable Health Concerns: Post Hospitalization: new medications and changes needed to prevent readmission or further decline. Pt educated and given instructions on all concerns. Care Plan Goals: Problem: Pain/Alteration in Comfort Goal: Improve/ Resolve Pain; Achieve Pain Tolerance Instructions: Take pain medications as prescribed. Contact your primary care provider if your pain is unrelieved or worsens. Follow up with primary care provider as directed. Plan of Treatment: Continue with present treatment and follow up plan. Pt is to keep follow up appointment as instructed and take medications as ordered. Assessment: Stable no acute distress noted at time of discharge. Prescriptions: Continued famotidine 40 mg Tablet 20 mg PO DAILY RF: 0 meloxicam 7.5 mg Tablet 7.5 mg PO BID RF: 0 lisinopril 20 mg Tablet 10 mg PO DAILY RF: 0 furosemide [Lasix] 40 mg Tablet 40 mg PO QAM RF: 0 gabapentin 600 mg Tablet 600 mg PO DAILY RF: 0 potassium chloride 10 mEq Tablet,Er Particles/Crystals 10 meq PO DAILY RF: 0 cetirizine [Zyrtec] 10 mg Tablet 10 mg PO DAILY RF: 0 pantoprazole [Protonix] 40 mg Tablet,Delayed Release (Dr/Ec) 40 mg PO DAILY RF: 0 albuterol sulfate [ProAir HFA] 90 mcg/actuation Hfa Aerosol Inhaler 2 puff INHALATION Q4-6H PRN (Reason: Shortness Of Breath Or Wheezing) RF: 0 fluticasone propionate [Flonase Allergy Relief] 50 mcg/actuation [place],Suspension 1 spray INTRANASAL BID PRN (Reason: Allergy Symptoms) RF: 0 cyclobenzaprine 5 mg Tablet 5 mg PO BID RF: 0 Follow ups/Referrals Follow ups/Referrals: [facility] [Other] - 03/01/21 11:23 am (Referral faxed to [phone]) Rodolfo Bowers [Primary Care Provider] - 03/09/21 10:20 am JH ALBA [STAFF PHYSICIAN] - 03/09/21 10:30 am Instructions Instructions: Incentive Spirometer, Hand Washing, [id number], How to Change Your Dressing, [id number], Pain Scale Information, Adult, Health Risks of Smoking, How to Change Your Dressing, Personal Hygiene, Pain Relief Before and After Surgery, Surgical Site Infections FAQs - [place], Skin Grafting, Adult, Care After, You've Been Prescribed an Antibiotic in the Hospital for an Infection - [facility] (02/2018), Tobacco Use Disorder, Preventing Problems After Surgery, Steps to Quit Smoking, Preventing Constipation After Surgery Activity Restrictions/Additional Instructions: Leave left lower extremity dressing in place, Dr. Alba will change on follow up visit in one week. Keep right thigh wound open to air. Stand Alone Forms: Excuse From Work or School, Precautions for COVID19, Patient Portal, Social Distancing
[2021-03-01 14:26] VITALS: BP 141/87
--- NOTE | 2021-03-01 17:06 | DR.PROGNOT ---
Hospital Progress Notes - Progress Note for Day of: Progress Note Date: 03/01/21 - Chief Complaint Chief Complaint: comfortable with moderate pain Lt leg .mild drainage from RT thigh donor site .CBC, Lytes , BUN/Creatinine are normal . dressing on the donor site was removed and a new Xeroform was applied . Lt leg dressing was kept intact .. - Past Medical Family Social History Past Med/Fam/Surg Hx: No changes since H&P Allergies: Allergies acetaminophen [From Darvocet-N] Allergy (Verified 02/09/21 15:42) iodine Allergy (Verified 02/09/21 15:42) propoxyphene [From Darvocet-N] Allergy (Verified 02/09/21 15:42) - Review Of Systems ROS: No change since H&P - Vital Signs Vital Signs: Temperature 98.2 F Pulse Rate [Right] 74 Pulse Rate [Left] 78 Pulse Rate 71 Respiratory Rate 20 Blood Pressure [Right Arm] 121/73 Blood Pressure [Left Arm] 141/87 Blood Pressure 128/70 O2 Sat by Pulse Oximetry 98 - Physical Exam Oriented: Normal Eyes: Normal Ear: Normal Nose: Normal Throat: Normal Respiratory: Normal Cardiovascular: Normal : Normal GI:Auscultation: Normal GI:Palpation: Normal GI: Tenderness: Normal Skin: Wound (dressing on graft site is intact) Musculoskeletal: Normal Psychiatric: Normal Mood Description: Anxious Affect: Normal Speech Pattern: Clear, Appropriate - Laboratory and Diagnostics Result Diagrams: 03/01/21 04:25 03/01/21 04:25 Labs: 02/24/21 09:58 Leg - Left Wound Gram Stain - Final 02/24/21 09:58 Leg - Left Wound Culture - Final Pseudomonas Aeruginosa Laboratory WBC 4.4 X10^3/uL (3.6-10.0) 03/01/21 04:25 RBC 3.56 X10^6/uL (3.5-5.4) 03/01/21 04:25 Hgb 9.4 g/dL (12.0-16.0) L 03/01/21 04:25 Hct 30.1 % (36.0-47.0) L 03/01/21 04:25 MCV 84.4 fL (80.0-100.0) 03/01/21 04:25 MCH 26.3 pg (27.0-34.0) L 03/01/21 04:25 MCHC 31.2 g/dL (33.0-35.0) L 03/01/21 04:25 RDW 16.6 % (11.6-16.5) H 03/01/21 04:25 Plt Count 258 X10^3/uL (150.0-450.0) 03/01/21 04:25 MPV 7.3 fL (7.4-11.0) L 03/01/21 04:25 Neut % (Auto) 57.8 % (42.0-75.0) 03/01/21 04:25 Lymph % (Auto) 24.8 % (21.0-51.0) 03/01/21 04:25 [place] % (Auto) 13.0 % (0.0-13.0) 03/01/21 04:25 Eos % (Auto) 3.6 % (0.9-2.9) H 03/01/21 04:25 Baso % (Auto) 0.8 % (0.2-1.0) 03/01/21 04:25 Neut # (Auto) 2.5 x10^3/uL (2.2-4.8) 03/01/21 04:25 Lymph # (Auto) 1.1 X10^3/uL (1.3-2.9) L 03/01/21 04:25 [place] # (Auto) 0.6 x10^3/uL (0.3-0.8) 03/01/21 04:25 Eos # (Auto) 0.2 x10^3/uL (0.0-0.2) 03/01/21 04:25 Baso # (Auto) 0.0 X10^3/uL (0.0-0.1) 03/01/21 04:25 Absolute Nucleated RBC 0.0 /100WBC 03/01/21 04:25 Sodium 142 mmol/L (136-145) 03/01/21 04:25 Corrected Sodium TNP 03/01/21 04:25 Potassium 4.6 mmol/L (3.5-5.1) 03/01/21 04:25 Chloride 106 mmol/L (98-107) 03/01/21 04:25 Carbon Dioxide 30.0 mmol/L (21-32) 03/01/21 04:25 BUN 16 mg/dL (7-18) 03/01/21 04:25 Creatinine 1.01 mg/dL (0.55-1.02) 03/01/21 04:25 Est GFR (MDRD) Af Amer > 60 (>60) 03/01/21 04:25 Est GFR (MDRD) Non-Af 59 (>60) 03/01/21 04:25 Glucose 95 mg/dL (65-99) 03/01/21 04:25 Calcium 8.5 mg/dL (8.5-10.1) 03/01/21 04:25 Corrected Calcium 9.9 mg/dL (8.5-10.1) 03/01/21 04:25 Total Bilirubin 0.20 mg/dL (0.2-1.0) 03/01/21 04:25 AST 22 Units/L (15-37) 03/01/21 04:25 ALT 16 Units/L (12-78) 03/01/21 04:25 Alkaline Phosphatase 72 Units/L (46-116) 03/01/21 04:25 Total Protein 5.9 g/dL (6.4-8.2) L 03/01/21 04:25 Albumin 2.2 g/dL (3.4-5.0) L 03/01/21 04:25 Globulin 3.7 g/dL (2.5-4.5) 03/01/21 04:25 Albumin/Globulin Ratio 0.6 Ratio (1.1-2.1) L 03/01/21 04:25 SARS CoV-2 RNA Rapid JADIEL Negative (NEGATIVE) 02/24/21 08:21 - Assessment and Plan 1: chronic Lt leg ulcer . s/p split thickness skin graft .day 4. same IV ATB . leg elevation , DVT prophylaxis . may ambulate to bathroom with assistance . to keep dressing intact for one week. RT thigh open to air ( keep Xeroform on it ). to follow in one week .. - Problem Patient Problems: Patient Problems Decubitus ulcer of left leg (Acute) L89.095
== END 2021-03-01 18:55 | disposition home or self-care (01) | DRG 575 ==
LOC: MED/SURG → OBSVTOIN 07:58
PROVIDERS: ADMIT Family Medicine; ATTEND Family Medicine
DX: B96.4 Proteus (mirabilis) (morganii) as the cause of diseases classified elsewhere; L89.899 Pressure ulcer of other site, unspecified stage; Z20.822 Contact with and (suspected) exposure to COVID-19; I10 Essential (primary) hypertension; E11.622 Type 2 diabetes mellitus with other skin ulcer; I87.8 Other specified disorders of veins